=== PATIENT | male | born 1960 | race Caucasian/White ===

== ENCOUNTER → 2019-09-14 09:43 | Outpatient (BNVA) | payer OTHER, SELFPAY | PROVIDERS: PCP Nurse Practitioner Family; Visit Provider Nurse Practitioner Family | DX: E11.65 Type 2 diabetes mellitus with hyperglycemia (principal); Z12.5 Encounter for screening for malignant neoplasm of prostate; L03.115 Cellulitis of right lower limb; E55.9 Vitamin D deficiency, unspecified; S93.401A Sprain of unspecified ligament of right ankle, initial encounter; X58.XXXA Exposure to other specified factors, initial encounter | CPT/HCPCS: 36415; 73610; 80053; 80061; 81001; 82306; 83036; 84153; 84443; 85025 ==

== ENCOUNTER → 2019-10-08 10:35 | Outpatient (BNVA) | payer OTHER, SELFPAY | PROVIDERS: PCP Nurse Practitioner Family; Referring Provider Nurse Practitioner Family; Visit Provider Podiatrist Foot & Ankle Surgery | DX: M79.671 Pain in right foot (principal) | CPT/HCPCS: 73630 ==

== ENCOUNTER 2019-10-08 14:25 | Outpatient (CLI) | payer OTHER, SELFPAY | END 2019-10-08 14:26 | disposition home or self-care (01) | LOC: SPT 14:26 | PROVIDERS: PCP Nurse Practitioner Family; Visit Provider Podiatrist Foot & Ankle Surgery | DX: S92.251D Displaced fracture of navicular [scaphoid] of right foot, subsequent encounter for fracture with routine healing (principal); X58.XXXD Exposure to other specified factors, subsequent encounter | CPT/HCPCS: L4361 ==

== ENCOUNTER 2019-10-15 13:09 | Outpatient (CLI) | payer OTHER, SELFPAY ==
--- NOTE | 2019-10-15 15:30 | CT_ITS ---
WS: [id number] CT RIGHT FOOT, NONCONTRAST. 3-D reconstructions submitted. HISTORY: fracture Technique: All CT scans at [facility] use at least one of these dose optimization techniq ues: automated exposure control; mA and/or kV adjustment per patient size (includes targeted exams wh ere dose is matched to clinical indication); or iterative reconstruction. DLP: 927.74 mGycm COMPARISON: 10/08/2019 There is extensive bone and soft tissue injury to the midfoot. Seen on the recent radiograph is later al displacement of the proximal second metatarsal with relationship to the second cuneiform. There is approximately 6 mm lateral displacement of the second metatarsal. There is widening between the firs t and second proximal metatarsals. There is a tiny, 2 mm osseous density in the plantar soft tissues between the proximal first and second metatarsals which may be a small megan of bone. The proximal ar ticular surfaces of the first and second metatarsal are irregular suggesting that may been some impac tion injury or injury to the cortex of the bone on the trauma. Multiple small subcortical cystic changes are present along the anterior talar process with adjacent abnormal density within the navicular. Suspect these are both impaction fractures which have undergon e healing. There are multiple tiny osseous bone fragments in the soft tissues over the dorsal surface of the foot at the level of the navicular. There are small donor sites from the navicular and the ad jacent talar dome. Seen on the lateral projection is loss of the normal arch of the foot. There is a mild concave defect along the dorsal surface of the foot at the level of the tarsal due to loss of th e normal arch and disruption of the ligaments in the midfoot. There are additional cystic or erosive changes involving the anterior calcaneus and the adjacent cubo id and all 3 cuneiforms. Some of these changes may be posttraumatic and others degenerative. The william cular appears medially subluxed. There is a large amount of soft tissue edema and fluid surrounding the midfoot. Significant hammertoe deformities with splaying between the second and third phalanges. Displaced wit h respect to the first cuneiform. CT/CT foot RT wo con* [id number] IMPRESSION: 1. Significant Lisfranc injury. 2. Lateral displacement of the second metatarsal (6 mm) with relationship to t he second cuneiform consistent with disruption of the Lisfranc ligament. 3. Multiple bony fragments over the dorsal midfoot. Donor sites appear to be f rom the navicular, the anterior talar process and possibly the adjacent second cuneiform. 4. Subchondral cystic changes with sclerosis involving the anterior talus and navicular. Additional cortical irregularity involving the articular surfaces of the first and second metatarsals. Suspect these changes are all related to fra ctures with healing. 5. Suspect mild medial displacement of the navicular. 6. Loss of the normal plantar arch of the foot with concave deformity of the d orsal foot from the ligamentous injury.
== END 2019-10-15 13:10 | disposition home or self-care (01) ==
LOC: RADWPI 13:14
PROVIDERS: PCP Nurse Practitioner Family; Visit Provider Podiatrist Foot & Ankle Surgery
DX: S92.251A Displaced fracture of navicular [scaphoid] of right foot, initial encounter for closed fracture (principal); S92.121A Displaced fracture of body of right talus, initial encounter for closed fracture; X58.XXXA Exposure to other specified factors, initial encounter
CPT/HCPCS: 73700

== ENCOUNTER → 2019-12-21 00:01 | Outpatient (BNVA) | payer OTHER, SELFPAY | PROVIDERS: PCP Nurse Practitioner Family; Visit Provider Nurse Practitioner Family | DX: Z12.5 Encounter for screening for malignant neoplasm of prostate (principal); L03.115 Cellulitis of right lower limb; S93.409A Sprain of unspecified ligament of unspecified ankle, initial encounter; E55.9 Vitamin D deficiency, unspecified; E78.2 Mixed hyperlipidemia; E11.69 Type 2 diabetes mellitus with other specified complication | CPT/HCPCS: 80053; 81001; 83036; 85025 ==

== ENCOUNTER → 2020-03-24 08:40 | Outpatient (BNVA) | payer OTHER, SELFPAY | PROVIDERS: PCP Nurse Practitioner Family; Visit Provider Nurse Practitioner Family | DX: E55.9 Vitamin D deficiency, unspecified (principal); E11.69 Type 2 diabetes mellitus with other specified complication; E78.2 Mixed hyperlipidemia | CPT/HCPCS: 36415; 80053; 81003; 83036; 85025 ==

== ENCOUNTER → 2020-06-27 08:23 | Outpatient (BNVA) | payer OTHER, SELFPAY | PROVIDERS: PCP Nurse Practitioner Family; Visit Provider Nurse Practitioner Family | DX: E11.69 Type 2 diabetes mellitus with other specified complication (principal); E55.9 Vitamin D deficiency, unspecified; E78.2 Mixed hyperlipidemia | CPT/HCPCS: 80053; 80061; 81003; 82306; 83036; 83735; 84100; 85025 ==

== ENCOUNTER → 2020-09-26 10:18 | Outpatient (BNVA) | payer OTHER, SELFPAY | PROVIDERS: PCP Nurse Practitioner Family; Visit Provider Nurse Practitioner Family | DX: E11.69 Type 2 diabetes mellitus with other specified complication (principal); E78.2 Mixed hyperlipidemia | CPT/HCPCS: 80053; 80061; 83036 ==

== ENCOUNTER → 2021-08-21 09:47 | Outpatient (BNVA) | payer OTHER, SELFPAY | PROVIDERS: PCP Nurse Practitioner Family; Visit Provider Nurse Practitioner Family | DX: E11.69 Type 2 diabetes mellitus with other specified complication (principal); E55.9 Vitamin D deficiency, unspecified; E78.2 Mixed hyperlipidemia | CPT/HCPCS: 80053; 80061; 81003; 82306; 83036; 84443; 85025 ==

== ENCOUNTER → 2022-11-16 12:42 | Outpatient (BNVA) | payer OTHER, SELFPAY | PROVIDERS: PCP Nurse Practitioner Family; Visit Provider Nurse Practitioner | DX: E11.69 Type 2 diabetes mellitus with other specified complication (principal); E78.2 Mixed hyperlipidemia; E55.9 Vitamin D deficiency, unspecified | CPT/HCPCS: 80053; 80061; 82306; 83036; 84443; 85025 ==

== ENCOUNTER 2023-06-07 12:59 | Outpatient (CLI) | payer OTHER, SELFPAY ==
[2023-06-07 13:15] LABS: Basophils # 0.1 10^3/uL (0.0-0.1); Basophils % 0.7 %; Eosinophils # 0.2 10^3/uL (0.0-0.8); Eosinophils % 1.8 %; Hematocrit 44.2 % (37-53); Lymphocytes # 2.8 10^3/uL (0.8-4.8); Lymphocytes % 25.1 %; Mean Corpuscular HGB Conc 33.9 g/dL (30-55); Mean Corpuscular Hemoglobin 30.9 pg (27-33); Mean Corpuscular Volume 91.1 fl (82-101); Mean Platelet Volume 9.1 fL (7.4-10.4); Monocytes # 0.8 10^3/uL (0.2-0.9); Monocytes % 7.4 %; Neutrophils # 7.16 10^3/uL (1.8-7.7); Neutrophils % 64.2 %; Nucleated Red Blood Cells % 0 %; Platelet Count 380 10^3/cmm (157-399); Red Blood Count 4.85 10^6/uL (3.85-5.65); Red Cell Distribution Width 12.5 % (12.1-15.1); White Blood Count 11.16 10^3/uL (3.29-11.43)
--- NOTE | 2023-06-07 13:15 | XR_ITS ---
WS: [id number] Exam: XR foot LT min 3V* [id number] Date/Time of Exam: 06/07/2023 1:20 PM Reason For Exam: E11.621 - Type 2 diabetes mellitus with foot ulcer There is marked soft tissue swelling of the great toe with osseous destruction of the distal tuft of the distal phalanx. This is suspicious for acute osteomyelitis. There is also an acute fracture with minimal displacement involving the proximal phalanx of the fourth toe. Flexion deformity of the fifth toe. No other fractures. No other areas of bone destruction. Plantar heel spur. 1 mm x 3 mm metallic soft tissue foreign body noted in the region of the fourth toe. IMPRESSION: 1. Marked soft tissue edema of the great toe with osseous destruction of the distal tuft of the dista l phalanx suspicious for acute osteomyelitis. 2. Acute appearing fracture of the proximal phalanx of the fourth toe. 3. Small metallic foreign body seen in the proximal fourth toe.
[2023-06-07 13:30] LABS: Alanine Aminotransferase 12 U/L (0-41); Albumin Level 3.5 g/dL (3.5-5.2); Alkaline Phosphatase 94 U/L (40-130); Anion Gap 15.2 (5-19); Aspartate Amino Transferase 14 U/L (0-40); Blood Urea Nitrogen 14 mg/dL (8-23); Calcium 9.3 mg/dL (8.5-10.5); Carbon Dioxide 23 mmol/L (22-29); Chloride 94 mmol/L (98-107); Globulin 3.6 g/dL (1.3-4.6); Glomerular Filtration Rate 86.1 mL/min (90-130); Glucose 270 mg/dL (65-115); Osmolality Calculated 276 mOsm/kg (285-295); Potassium 4.2 mmol/L (3.5-5.1); Sodium 128 mmol/L (136-145); Total Bilirubin 0.6 mg/dL (0.15-1.2); Total Protein 7.1 g/dL (6.6-8.7)
== END 2023-06-07 13:00 | disposition home or self-care (01) ==
PROVIDERS: PCP Nurse Practitioner; Visit Provider Nurse Practitioner Family
DX: E11.621 Type 2 diabetes mellitus with foot ulcer (principal); L97.509 Non-pressure chronic ulcer of other part of unspecified foot with unspecified severity; S92.412A Displaced fracture of proximal phalanx of left great toe, initial encounter for closed fracture; X58.XXXA Exposure to other specified factors, initial encounter
CPT/HCPCS: 36415; 73630; 80053; 85025

== ENCOUNTER 2023-06-07 16:49 | Inpatient (IN) | payer OTHER, SELFPAY ==
[2023-06-07] VITALS (25 sets, daily range): BP systolic 112–166; BP diastolic 83–90; PULSE 75–101; RESP 16–32; TEMP 36.4–36.7; O2SAT 95–99; BMI 34.8
--- NOTE | 2023-06-07 17:02 | XRR_ITS ---
PROCEDURE INFORMATION: Exam: XR Left Foot Exam date and time: 06/07/2023 5:14 PM Age: 62 years old Clinical indication: Other: Lt foot ulcer; Additional info: Wound TECHNIQUE: Imaging protocol: Radiologic exam of the left foot. Views: 3 or more views. COMPARISON: No relevant prior studies available. FINDINGS: Bones/joints: There is a displaced medially angulated fracture of the diaphysis of the proximal phalanx of the 4th toe. There is mild irregularity of the tuft of the great toe with associated soft tissue swelling. Soft tissues: See Bones/joints finding. XR/XR foot LT min 3V* [id number] IMPRESSION: 1. Fracture of the proximal phalanx of the 4th toe. 2. There is mild irregularity of the tuft of the great toe with associated soft tissue swelling. Cannot exclude early osteomyelitis although petr osteolysis is not seen. Clinical correlation and follow-up are recommended.
--- NOTE | 2023-06-07 17:09 | ED_ITS ---
HPI - Extremity Problem General: Chief complaint: Extremity Injury, Lower Stated complaint: left foot toe injury/sent by wound care Time Seen by Provider: 06/07/23 17:01 Source: patient Mode of arrival: ambulatory Limitations: no limitations History of Present Illness: 62-year-old states he has had a wound to his left toe he states has been worsening since Tuesday and a temperature 100.7 he does see wound care wound care and sent him up here today likely needs an amputation of that toe. He denies any worsening proving factors. Associated symptoms: Reports fever(s); Deny chest pain or rash Review of Systems Const: Reports: fever(s); Denies: chills, body aches or change in appetite ENMT: Denies: throat pain or dental pain Card: Denies: chest pain Resp: Denies: dyspnea GI: Denies: abdominal pain, nausea, vomiting or diarrhea Musc: Reports: extremity swelling; Denies: neck pain or back pain Skin/Breast: Reports: erythema; Denies: rash PFSH ED PFSH: Medical History Diabetes mellitus Mixed hyperlipidemia Rhus dermatitis Vitamin D deficiency Surgical History History of ankle surgery Patient has history of right ankle injury at work in the [employer] and subsequent surgery, but does not know what was done Family History Other Diabetes Social History Smoking and tobacco/nicotine status: current every day tobacco/nicotine user smokeless tobacco Smokeless tobacco user: snuff Household members: significant other Housing: House Marital status: Current occupation: [employer] Current occupational exposures/hazards: Yes (lead and othe exposures) Physical Exam Const: COMMON NORMALS: no acute distress, patient oriented x3 and healthy appearing HENMT: COMMON NORMALS: normocephalic and atraumatic HEAD & SCALP: normocephalic and atraumatic Neck/C-Spine: COMMON NORMALS: full ROM and supple Chest: COMMONS NORMALS: normal inspection of the chest Resp: COMMON NORMALS: normal respiratory effort Cardio: COMMON NORMALS: regular rate, regular rhythm and No murmurs present (Cardio) RATE: regular rate RHYTHM: regular rhythm Extremity: COMMON NORMALS: full ROM OTHER: Chronic appearing wound to left toe with swelling erythema Neuro: COMMON NORMALS: patient oriented x3, moves all extremities and no focal motor deficits Psych: COMMON NORMALS: mental status grossly normal, Normal thought process present and cooperative THOUGHT PROCESS: Normal thought process present Skin: COMMON NORMALS: no rashes or lesions noted and no wounds GENERAL SKIN EXAM: no rashes or lesions noted Course Vital Signs: Vital signs: Vital Signs Temperature 97.5 F L 06/07/23 16:54 Pulse Rate 101 H 06/07/23 16:54 Respiratory Rate 16 06/07/23 16:54 Blood Pressure 166/88 06/07/23 16:54 Pulse Oximetry 99 06/07/23 16:54 Oxygen Delivery Me thod Room Air 06/07/23 16:54 MDM - Extremity (Nontraumatic) Medical Decision Making Patient presents here with chronic wound left toe with likely osteomyelitis patient is been seen by podiatry is likely going to amputate the toe tomorrow we will start on IV antibiotics I spoke to the hospitalist who will admit. Medical Records I reviewed the patient's medical records. Lab Data I reviewed the patient's lab results. 06/07/23 17:27 06/07/23 17:27 Radiology Impressions Foot X-Ray 06/07/23 17:02 IMPRESSION: 1. Fracture of the proximal phalanx of the 4th toe. 2. There is mild irregularity of the tuft of the great toe with associated soft tissue swelling. Cannot exclude early osteomyelitis although petr osteolysis is not seen. Clinical correlation and follow-up are recommended. Laboratory Results WBC 12.58 10^3/uL (3.29-11.43) H 06/07/23 17:27 RBC 5.06 10^6/uL (3.85-5.65) 06/07/23 17:27 Hgb 16.00 g/dL (11.27-16.99) 06/07/23 17:27 Hct 46.6 % (37-53) 06/07/23 17: MCV 92.1 fl (82-101) 06/07/23 17: MCH 31.6 pg (27-33) 06/07/23 17: MCHC 34.3 g/dL (30-55) 06/07/23 17: RDW 12.8 % (12.1-15.1) 06/07/23 17: Plt Count 384 10^3/cmm (157-399) 06/07/23 17: MPV 9.3 fL (7.4-10.4) 06/07/23 17: Neut % (Auto) 70.5 % 06/07/23 17: Lymph % (Auto) 19.6 % 06/07/23 17: [place] % (Auto) 7.2 % 06/07/23 17: Eos % (Auto) 1.5 % 06/07/23 17: Baso % (Auto) 0.6 % 06/07/23: Neut # (Auto) 8.88 10^3/uL (1.8-7.7) H 06/07/23: Lymph # (Auto) 2.5 10^3/uL (0.8-4.8) 06/07/23 17: [place] # (Auto) 0.9 10^3/uL (0.2-0.9) 06/07/23 17: Eos # (Auto) 0.2 10^3/uL (0.0-0.8) 06/07/23 17: Baso # (Auto) 0.1 10^3/uL (0.0-0.1) 06/07/23 17: Nucleated RBC % (auto) 0 % 06/07/23 17: Nucleated RBCs # 0.0 /100WBC 06/07/23 17: ESR 47 mm/hr (0-10) H 06/07/23 17:27 Sodium 132 mmol/L (136-145) L 06/07/23 17:27 Potassium 4.5 mmol/L (3.5-5.1) 06/07/23 17: Chloride 95 mmol/L (98-107) L 06/07/23 17: Carbon Dioxide 23 mmol/L (22-29) 06/07/23 17:27 Anion Gap 18.5 (5-19) 06/07/23 17:27 BUN 17 mg/dL (8-23) 06/07/23 17: Creatinine 1.1 mg/dL (0.7-1.2) 06/07/23 17:27 GFR Calculation 68.3 mL/min (90-130) L 06/07/23 17:27 Glucose 205 mg/dL (65-115) H 06/07/23 17:27 Calculated Osmolality 281 mOsm/kg (285-295) L 06/07/23 17:27 Calcium 9.4 mg/dL (8.5-10.5) 06/07/23 17:27 Total Bilirubin 0.5 mg/dL (0.15-1.2) 06/07/23 17:27 AST 22 U/L (0-40) 06/07/23 17:27 ALT 13 U/L (0-41) 06/07/23 17:27 Alkaline Phosphatase 109 U/L (40-130) 06/07/23 17:27 C-Reactive Protein 203.9 mg/L (0.0-4.9) H 06/07/23 17:27 Total Protein 8.1 g/dL (6.6-8.7) 06/07/23 17:27 Albumin 3.7 g/dL (3.5-5.2) 06/07/23 17:27 Globulin 4.4 g/dL (1.3-4.6) 06/07/23 17:27 All radiology interpretation(s) finalized by discharge Discharge Plan Discharge Patient Disposition: Admitted As Inpatient Admit Provider: Deandre Morales Clinical Impression: Osteomyelitis of left foot Condition: Stable Coding Level of Care Code ED Roads Supervisor for Matias Ye
[2023-06-07 17:42] LABS: Basophils # 0.1 10^3/uL (0.0-0.1); Basophils % 0.6 %; Eosinophils # 0.2 10^3/uL (0.0-0.8); Eosinophils % 1.5 %; Hematocrit 46.6 % (37-53); Lymphocytes # 2.5 10^3/uL (0.8-4.8); Lymphocytes % 19.6 %; Mean Corpuscular HGB Conc 34.3 g/dL (30-55); Mean Corpuscular Hemoglobin 31.6 pg (27-33); Mean Corpuscular Volume 92.1 fl (82-101); Mean Platelet Volume 9.3 fL (7.4-10.4); Monocytes # 0.9 10^3/uL (0.2-0.9); Monocytes % 7.2 %; Neutrophils # 8.88 10^3/uL (1.8-7.7); Neutrophils % 70.5 %; Nucleated Red Blood Cells % 0 %; Platelet Count 384 10^3/cmm (157-399); Red Blood Count 5.06 10^6/uL (3.85-5.65); Red Cell Distribution Width 12.8 % (12.1-15.1); White Blood Count 12.58 10^3/uL (3.29-11.43)
[2023-06-07 17:51] LABS: Erythrocyte Sedimentation Rate 47 mm/hr (0-10)
--- NOTE | 2023-06-07 17:59 | PM.CONSULT ---
Providers/Reason For Consult Consulting Physician/Specialty*: Jose Garnica D.P.M./podiatry Reason for Consult*: Left diabetic foot infection Primary Care Provider: JOE Merida History of Present Illness History of Present Illness Aime Leonard is a 62 year old male presents to the emergency department With complaints of a left great toe infection and left second toe infection has been progressing over the course of the past month. He believes it started with a ill fitting pair of boots. He saw his primary care yesterday and was placed on Bactrim, referred to the ED from wound care due to the extent of his wounds requiring hospitalization and surgical intervention. Patient endorses subjective fever. Patient's past medical history includes diabetes with peripheral neuropathy. No other complaints. Review of Systems General: Reports: 10 or more systems reviewed and unremarkable except in HPI and below Const: Denies: fever(s) or chills Eyes: Denies: change in vision Card: Denies: chest pain or palpitations Resp: Denies: dyspnea or productive cough GI: Denies: abdominal pain, nausea or vomiting : Denies: flank pain Musc: Reports: extremity swelling, joint stiffness and deformity Skin/Breast: Reports: erythema, sores, changes in skin color, dry skin, nail changes and change in hair Neuro: Reports: numbness in extremities, sensory changes and difficulty walking Psych: Denies: suicidal ideation Endo: Denies: change in body appearance Cooper/Lymph: Denies: tender lymph nodes Medications/Allergies Home Medications Medication Instructions Recorded Confirmed Last Taken Type blood-glucose meter #1 ea 09/17/19 06/06/23 Unknown Rx cholecalciferol (vitamin D3) 1,250 50,000 unit PO .weekly 90 days #12 08/28/21 06/06/23 Unknown Rx mcg (50,000 unit) capsule caps rosuvastatin 10 mg tablet (Crestor) 10 mg PO DAILY 90 days #90 tabs 08/28/21 06/06/23 Unknown Rx sitagliptin phosphate 50 mg tablet 100 mg PO DAILY 90 days #180 tabs 11/18/22 06/06/23 Unknown Rx (Januvia) metformin 500 mg tablet 1,000 mg PO BID 90 days #360 tabs 12/03/22 06/06/23 Unknown Rx mupirocin 2 % topical ointment 1 applic topical BID 5 days #22 03/09/23 06/06/23 Unknown Rx grams sulfamethoxazole 800 1 tab PO Q12H 14 days #28 tabs 06/06/23 06/06/23 Unknown Rx mg-trimethoprim 160 mg tablet (Bactrim DS) sodium hypochlorite 0.5 % solution 1 applic topical BID #473 mL 06/07/23 06/07/23 Unknown Rx (Dakin's Solution) Allergies Allergy/AdvReac Type Severity Reaction Status Date / Time No Known Allergies Allergy Verified 06/06/23 16:09 PFSH Acute PFSH: Medical History Diabetes mellitus Mixed hyperlipidemia Rhus dermatitis Vitamin D deficiency Surgical History History of ankle surgery Patient has history of right ankle injury at work in the [employer] and subsequent surgery, but does not know what was done Family History Other Diabetes Social History Smoking and tobacco/nicotine status: current every day tobacco/nicotine user smokeless tobacco Smokeless tobacco user: snuff Household members: significant other Housing: House Marital status: Current occupation: [employer] Current occupational exposures/hazards: Yes (lead and othe exposures) Vitals/I&O/Wt Last Vital Signs Temp 97.5 F L 06/07/23 16:54 Pulse 101 H 06/07/23 16:54 Resp 16 06/07/23 16:54 BP 166/88 06/07/23 16:54 Pulse Ox 99 06/07/23 16:54 O2 Del Method Room Air 06/07/23 16:54 Weight last 48 hrs Weight 264 lb Physical Exam Narrative: GENERAL: Patient is alert and oriented ?3 and in no acute distress. The following is a focused bilateral lower extremity exam. VASCULAR: Dorsalis pedis palpable bilaterally. Posterior tibial arteries palpable. Capillary refill time absent to the distal left great toe. Calf is supple and nontender proximally and distally. Decreased pedal hair growth bilaterally. NEUROLOGICAL: Protective sensation intact 0/10 sites, tested with [place] Larry monofilament to bilateral feet. DERMATOLOGICAL:Wound at the distal tuft of the left great toe probes directly to distal phalanx. Sinus tract within the left first webspace at the lateral aspect of the left great toe, left great toe is dusky, has gregory, dusky, ischemic appearance. Wound probes to bone at the dorsal aspect of the left second toe at the level of the proximal interphalangeal joint with serous drainage and macerated wound margin. Left second toe wound measures 5 mm x 4 mm x 2 mm. MUSCULOSKELETAL: Hammertoe contracture left third toe with triplane component. No crepitus with palpation of soft tissue of the left foot. No pain with posterior calf squeeze bilaterally. Data 06/07/23 17:27 06/07/23 17:27 Micro: Microbiology 06/07/23 17:30 Blood Culture - Preliminary Blood SPECIMEN COLLECTED 06/07/23 17: Blood Culture - Preliminary Blood SPECIMEN COLLECTED A&P Assessment and plan (1) Diabetic peripheral neuropathy associated with type 2 diabetes mellitus: (2) Cellulitis of left foot: (3) Non-pressure chronic ulcer of other part of left foot with necrosis of bone: Plan 62-year-old male presents with acute osteomyelitis left great toe and wound second toe. Patient examined evaluated, findings and treatment options discussed with patient at length. Discussed radiographic, laboratory clinical findings with the patient at length and recommended left great toe amputation and incision down to bone of the left second toe wound. Will likely require extended stay at the hospital with empiric IV antibiotics and delayed closure following amputation of left hallux given the amount of soft tissue involvement. Left great toe wound culture sent to microbiology for Gram stain, culture and sensitivity X-ray left foot taken at emergency department today shows erosive changes at the distal phalanx consistent with osteomyelitis, wound probes directly to this area of concern clinically. Dressing consisting of 4 x 4 gauze, Kerlix applied to the left foot N.p.o. at midnight Left hallux amputation and incision down to bone left second toe scheduled for tomorrow 06/08/2023 at noon. Coding Level of Care Code Acute Code for [facility] Fwd Diagnoses Diabetic peripheral neuropathy associated with type 2 diabetes mellitus E11.42 Cellulitis of left foot L03.116 Non-pressure chronic ulcer of other part of left foot with necrosis of bone L97.524
[2023-06-07 18:03] LABS: Alanine Aminotransferase 13 U/L (0-41); Albumin Level 3.7 g/dL (3.5-5.2); Alkaline Phosphatase 109 U/L (40-130); Anion Gap 18.5 (5-19); Aspartate Amino Transferase 22 U/L (0-40); Blood Urea Nitrogen 17 mg/dL (8-23); C Reactive Protein 203.9 mg/L (0.0-4.9); Calcium 9.4 mg/dL (8.5-10.5); Carbon Dioxide 23 mmol/L (22-29); Chloride 95 mmol/L (98-107); Globulin 4.4 g/dL (1.3-4.6); Glomerular Filtration Rate 68.3 mL/min (90-130); Glucose 205 mg/dL (65-115); Osmolality Calculated 281 mOsm/kg (285-295); Potassium 4.5 mmol/L (3.5-5.1); Sodium 132 mmol/L (136-145); Total Bilirubin 0.5 mg/dL (0.15-1.2); Total Protein 8.1 g/dL (6.6-8.7)
--- NOTE | 2023-06-07 18:12 | PM.HP ---
Providers/Chief Complaint Primary Care Provider: JOE Merida Chief Complaint: left foot toe injury/sent by wound care History of Present Illness Aime Leonard is a 62 year old male with a past medical history of diabetic neuropathy, history of type 2 diabetes mellitus, who presents to [facility] as he developed swelling, drainage, from his left foot, first and second digit, denies any fevers, no chills, no known trauma, no cat bites, no dog bites, he tells me that it suddenly erupted in the last 24 to 48 hours, he has had cellulitis in this area before, received antibiotics and that is improved, Review of Systems Const: Denies: fever(s) or chills Card: Denies: chest pain Resp: Denies: dyspnea GI: Denies: abdominal pain : Denies: flank pain or difficulty urinating Musc: Denies: extremity pain Skin/Breast: Reports: rash Neuro: Denies: headache(s) Medications/Allergies Home Medications Medication Instructions Recorded Confirmed Last Taken Type blood-glucose meter #1 ea 09/17/19 06/06/23 Unknown Rx cholecalciferol (vitamin D3) 1,250 50,000 unit PO .weekly 90 days #12 08/28/21 06/06/23 Unknown Rx mcg (50,000 unit) capsule caps rosuvastatin 10 mg tablet (Crestor) 10 mg PO DAILY 90 days #90 tabs 08/28/21 06/06/23 Unknown Rx sitagliptin phosphate 50 mg tablet 100 mg PO DAILY 90 days #180 tabs 11/18/22 06/06/23 Unknown Rx (Januvia) metformin 500 mg tablet 1,000 mg PO BID 90 days #360 tabs 12/03/22 06/06/23 Unknown Rx mupirocin 2 % topical ointment 1 applic topical BID 5 days #22 03/09/23 06/06/23 Unknown Rx grams sulfamethoxazole 800 1 tab PO Q12H 14 days #28 tabs 06/06/23 06/06/23 Unknown Rx mg-trimethoprim 160 mg tablet (Bactrim DS) sodium hypochlorite 0.5 % solution 1 applic topical BID #473 mL 06/07/23 06/07/23 Unknown Rx (Dakin's Solution) Allergies Allergy/AdvReac Type Severity Reaction Status Date / Time No Known Allergies Allergy Verified 06/06/23 16:09 PFSH Acute PFSH: Medical History Diabetes mellitus Mixed hyperlipidemia Rhus dermatitis Vitamin D deficiency Surgical History History of ankle surgery 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, but does not know what was done Family History Other Diabetes Social History Smoking and tobacco/nicotine status: current every day tobacco/nicotine user smokeless tobacco Smokeless tobacco user: snuff Household members: significant other Housing: House Marital status: Current occupation: [employer] Current occupational exposures/hazards: Yes (lead and othe exposures) Vitals/I&O/Wt Last Vital Signs Temp 97.5 F L 06/07/23 16:54 Pulse 101 H 06/07/23 16:54 Resp 16 06/07/23 16:54 BP 166/88 06/07/23 16:54 Pulse Ox 99 06/07/23 16:54 O2 Del Method Room Air 06/07/23 16:54 Weight last 48 hrs Weight 119.748 kg Physical Exam Const: COMMON NORMALS: no acute distress and patient oriented x3 HENMT: COMMON NORMALS: normocephalic HEAD & SCALP: normocephalic Eye: COMMON NORMALS: Equal, round and reactive pupils present and EOMs intact bilaterally Neck/C-Spine: COMMON NORMALS: no JVD Lymph: LYMPHATIC: no lymphadenopathy noted Resp: COMMON NORMALS: normal respiratory effort, No retractions, No use of accessory muscles and clear to auscultation bilaterally AUSCULTATION: clear to auscultation bilaterally Cardio: COMMON NORMALS: regular rate, regular rhythm, S1 normal heart sound present and S2 normal heart sound present RATE: regular rate RHYTHM: regular rhythm HEART SOUNDS: S1 normal heart sound present and S2 normal heart sound present GI: COMMON NORMALS: Normal to inspection, nondistended, normoactive bowel sounds present, Soft to palpation and non-tender Extremity: COMMON NORMALS: no calf tenderness and no pedal edema Neuro: COMMON NORMALS: patient oriented x3, CN's II-XII intact bilaterally, moves all extremities and no focal motor deficits Psych: COMMON NORMALS: mental status grossly normal Skin: NARRATIVE SKIN EXAM: Left lower extremity -First digit, erythema, swelling, purulent drainage, foul-smelling with erythema, extending beyond the PIP -Second digit, between DIP and PIP, area of erythema, swelling, drainage Data 06/07/23 17:27 06/07/23 17:27 Micro: Microbiology 06/07/23 17:30 Blood Culture - Preliminary Blood SPECIMEN COLLECTED 06/07/23 17:27 Blood Culture - Preliminary Blood SPECIMEN COLLECTED A&P Assessment and plan (1) Diabetic foot infection: (2) Cellulitis: (3) Osteomyelitis of left foot: Plan Left foot, diabetic ulcer, diabetic foot infection, cellulitis, first and second digit, with surrounding cellulitis, with concerns for osteomyelitis of distal phalanx first digit Plan -We will admit to general medical floors ? Follow blood cultures, follow wound cultures ? Continue vancomycin, Zosyn, ? Spoke to podiatry, plan on surgical debridement tomorrow, possible amputation, n.p.o. midnight ? Wound care ? N.p.o. midnight ? Type 2 diabetes mellitus, A1c, low-dose sliding scale ? Full code ? Lovenox for DVT prophylaxis ? Spoke to podiatry, spoke to ER provider, spoke to nursing staff, spoke to patient -Has fracture of proximal phalanx fourth toe -Also has a metallic foreign body, proximal fourth toe -Has diabetic neuropathy Attestations Medical Necessity Statement*: Patient requires hospitalization, inpatient, greater than 2 midnights, for diabetic foot ulcer, diabetic foot and foot infection, with cellulitis Diagnoses Diabetic foot infection E11.628; L08.9 Cellulitis L03.90 Osteomyelitis of left foot M86.9
[2023-06-07] MEDS: piperacillin-tazobactam 3.375 GM in sodium chloride 0.9% (plus) 50 ML IV (18:30)
[2023-06-07 18:47] LABS: NT Pro B Type Natriuretic Pept 266 pg/mL (0-125)
[2023-06-07] MEDS: enoxaparin 40 mg/0.4 mL Syringe SUBCUT (19:05)
[2023-06-07] MEDS: pantoprazole 40 mg SDV IVP (19:05)
[2023-06-07] MEDS: vancomycin 1,000 MG in sodium chloride 0.9% 250 ML 250 MG IV (19:06)
[2023-06-07 20:07] LABS: Chol HDL Ratio 12.79 mg/dL (1.0-5.00); Cholesterol 179 mg/dL (0-200); HDL Cholesterol 14 mg/dL (60-100); LDL Cholesterol Calculated 111 mg/dL (50-129); LDL HDL Ratio 7.93 RATIO (0.00-3.22); Thyroid Stimulating Hormone 2.07 uIU/mL (0.27-4.20); Triglycerides 271 mg/dL (0-150)
[2023-06-07 20:17] LABS: Estmated Average Glucose 206; Hemoglobin A1C 8.8 % (4.0-6.0)
[2023-06-07 20:49] LABS: Glucose Point of Care 223 mg/dL (70-110)
[2023-06-08] VITALS (43 sets, daily range): BP systolic 112–146; BP diastolic 70–95; PULSE 66–85; RESP 14–30; TEMP 36.1–36.8; O2SAT 93–100
[2023-06-08] MEDS: piperacillin-tazobactam 3.375 GM in sodium chloride 0.9% (plus) 50 ML IV ×3 (00:13→18:24)
[2023-06-08 04:05] LABS: Basophils # 0.1 10^3/uL (0.0-0.1); Basophils % 0.8 %; Eosinophils # 0.2 10^3/uL (0.0-0.8); Eosinophils % 2.7 %; Hematocrit 41.2 % (37-53); Lymphocytes # 2.3 10^3/uL (0.8-4.8); Lymphocytes % 25.2 %; Mean Corpuscular HGB Conc 33.7 g/dL (30-55); Mean Corpuscular Hemoglobin 31.4 pg (27-33); Mean Corpuscular Volume 93.2 fl (82-101); Mean Platelet Volume 9.2 fL (7.4-10.4); Monocytes # 0.9 10^3/uL (0.2-0.9); Monocytes % 9.4 %; Neutrophils # 5.46 10^3/uL (1.8-7.7); Neutrophils % 60.6 %; Nucleated Red Blood Cells % 0 %; Platelet Count 341 10^3/cmm (157-399); Red Blood Count 4.42 10^6/uL (3.85-5.65); Red Cell Distribution Width 12.7 % (12.1-15.1); White Blood Count 9.01 10^3/uL (3.29-11.43)
[2023-06-08 04:28] LABS: Anion Gap 13.4 (5-19); Blood Urea Nitrogen 14 mg/dL (8-23); Calcium 8.8 mg/dL (8.5-10.5); Carbon Dioxide 25 mmol/L (22-29); Chloride 101 mmol/L (98-107); Glomerular Filtration Rate 86.1 mL/min (90-130); Glucose 198 mg/dL (65-115); Osmolality Calculated 286 mOsm/kg (285-295); Potassium 4.4 mmol/L (3.5-5.1); Sodium 135 mmol/L (136-145)
[2023-06-08] MEDS: vancomycin 1,500 MG/300 ML PIGGYBACK 200 MG IV ×2 (05:07→18:28)
[2023-06-08 07:52] LABS: Glucose Point of Care 211 mg/dL (70-110)
[2023-06-08] MEDS: insulin lispro 100 unit/1 mL SUBCUT ×3 (08:42→18:24)
[2023-06-08 11:02] LABS: Glucose Point of Care 157 mg/dL (70-110)
[2023-06-08] MEDS: acetaminophen 325 mg Tablet 650 MG PO (11:12)
--- NOTE | 2023-06-08 12:41 | W.PM.OPSUD ---
Surgery/Procedure H&P Update DATE OF PROCEDURE: June 08, 2023 DATE H&P PERFORMED: 06/07/23 H&P UPDATE INFORMATION: I have reviewed H&P completed within last 30 days, I have examined patient prior to procedure, No changes to prior documentation and H&P is in [facility] EMR on date indicated PREOP DIAGNOSIS: Osteomyelitis left foot PLANNED PROCEDURE: Operation Date: 06/08/23 12:40 Proposed Procedures p Amputation Toe/s(Left) - Jose Garnica DPM
--- NOTE | 2023-06-08 12:42 | P.OP_ITS ---
Operative Report Date of procedure: June 08, 2023 Pre-op diagnosis: Osteomyelitis left great toe. Wound down to bone left second toe Post-op diagnosis: Same Procedure done: Left great toe amputation. CPT code 86116 Incision down to bone left second toe. CPT code 25815 Implants: None Specimens removed/disposition: Left great toe sent to microbiology for Gram stain, culture and sensitivity Surgeon: Jose Garnica DPM [employer] Guard: Tl Estimated blood loss: 10 10 IV fluids: 0 Urine output: 0 Complications: none Findings: Devitalized bone distal phalanx left great toe. Wound down to bone left second toe at the proximal interphalangeal joint Brief History: 62-year-old male presents with acute osteomyelitis left great toe and wound second toe. Patient examined evaluated, findings and treatment options discussed with patient at length.? Discussed radiographic, laboratory clinical findings with the patient at length and recommended left great toe amputation and incision down to bone of the left second toe wound.? Will likely require extended stay at the hospital with empiric IV antibiotics and delayed closure following amputation of left hallux given the amount of soft tissue? involvement. Procedure: Under mild sedation the patient was brought to the operating room and remained on the ICU bed in supine position. A timeout was performed. Anesthesia was then administered by the anesthesia service. Local anesthesia was injected by myself consisting of 30 cc of one-to-one mixture 1% lidocaine and 0.5% Marcaine plain in a left male block fashion and second ray block fashion. Tourniquet applied to the left high calf. Left lower extremity was scrubbed, prepped and draped utilizing normal aseptic technique. Tourniquet was utilized for total of 10 minutes. Attention was directed to the left great toe where a wound probe directly to distal phalanx which was soft, dusky gregory and had malodor with petr purulence, a fishmouth incision was planned out at the left first metatarsal phalangeal joint maintaining distal skin flaps and a disarticulation of left great toe was performed sharply, left great toe was sent to microbiology for Gram stain, culture and sensitivity. Debridement all devitalized soft tissue sharply with rongeur, pickups and 15 blade. Incision was irrigated with saline solution. Attention was directed to the left second toe where the proximal interphalangeal joint dorsally had a wound extending directly to the head of the proximal phalanx, this was incised with a bone cutter and debrided down to bone cortex of all devitalized bone and soft tissue followed by saline flush. Incisions were irrigated with copious amounts of Staticin solution and a saline wet-to-dry dressing was utilized at the left foot consisting of 4 x 4 gauze, Kerlix, ABD pad and Coban which was reinforced with additional 4 x 4's, Kerlix and Sanju wrap in PACU. Patient tolerated the procedure well and was transferred to the PACU with vital signs stable and vascular status intact. Following a period of postoperative monitoring he will be transferred back to the floor to continue IV antibiotics. We will monitor soft tissue closely and plan for primary delayed closure once soft tissue is cleared of infection.
[2023-06-08] MEDS: sodium chloride 0.9% 1,000 ML 30 ML IV (12:43)
[2023-06-08] MEDS: lidocaine 2% INJ 20 mL INJECTION (12:52)
[2023-06-08] MEDS: BUPivacaine 0.5% INJ 30 mL INJECTION (12:52)
--- NOTE | 2023-06-08 13:24 | ANES.PREANE2 ---
Pre-Anesthetic Assessment Height/Weight: Height 1.85 m Weight 119.748 kg Temp Pulse Resp BP Pulse Ox O2 Del Method 97.9 F 75 18 140/85 96 Room Air 06/08/23 12:23 06/08/23 12:23 06/08/23 12:23 06/08/23 12:23 06/08/23 12:23 06/08/23 12:23 Preop Diagnosis: Osteomyelitis left foot Operation Date: 06/08/23 12:40 Proposed Procedures p Amputation Toe/s(Left) - Jose Garnica DPM Familial anesthetic complications: none Was Beta Jonathon taken within 24 hours: N/A Was Clonidine taken within 24 hours: N/A Social No alcohol and No tobacco Exam alert, oriented x 3, clear to auscultation bilaterally and regular rate & rhythm Chin Airway Submandibular: within normal limits Cervical ROM: within normal limits Mallampati: Class II Dentition: chipped Chronic Renal Insufficiency Metabolic Diabetes Mellitus, Hyperlipidemia and Morbid Obesity Neuropsych Neuropathy Anesthetic Plan ASA status: 3 Anesthesia: MAC Medications/Allergies Home Medications Medication Instructions Recorded Confirmed Last Taken Type blood-glucose meter #1 ea 09/17/19 06/08/23 Unknown Rx metformin 500 mg tablet 1,000 mg PO BID 90 days #360 tabs 12/03/22 06/08/23 Unknown Rx sulfamethoxazole 800 1 tab PO Q12H 14 days #28 tabs 06/06/23 06/08/23 Unknown Rx mg-trimethoprim 160 mg tablet (Bactrim DS) sodium hypochlorite 0.5 % solution 1 applic topical BID #473 mL 06/07/23 06/08/23 Unknown Rx (Dakin's Solution) Allergies Allergy/AdvReac Type Severity Reaction Status Date / Time No Known Allergies Allergy Verified 06/06/23 16:09 Current Medications Generic Name Dose Route Start Last Admin Trade Name Freq PRN Reason Stop Dose Admin Acetaminophen 650 mg 06/07/23 18:50 06/08/23 11:12 Acetaminophen 325 Mg Tablet PO 650 mg Q6H PRN Administration Mild/Mod Pain Or Temp >/= 101 Bupivacaine HCl 30 ml 06/08/23 13:19 06/08/23 12:52 Bupivacaine 0.5% Inj 30 Ml INJECTION 06/08/23 13:20 15 ml ONCE ONE Administration Enoxaparin Sodium 40 mg 06/07/23 18:50 06/07/23 19:05 Enoxaparin 40 Mg/0.4 Ml Syringe SUBCUT 40 mg Q24H IRAJ Administration Piperacillin Sod/Tazobactam 50 mls @ 12.5 mls/hr 06/08/23 01:00 06/08/23 08:41 Sod 3.375 gm/ Sodium Chloride IV 12.5 mls/hr Q8H IRAJ Administration Protocol Vancomycin/PEG/NADA/Lysine/Water 1,500 mg in 300 mls @ 200 mls/hr 06/08/23 06:00 06/08/23 06:46 Vancocin IV Infused Q12H IRAJ Infusion Sodium Chloride 1,000 mls @ 30 mls/hr 06/08/23 12:30 06/08/23 12:43 Sodium Chloride 0.9% IV 06/09/23 12:29 30 mls/hr .Q24H IRAJ Administration Insulin Human Lispro 0 unit 06/08/23 08:00 06/08/23 11:12 Insulin Lispro 100 Unit/1 Ml SUBCUT 2 unit TIDWM IRAJ Administration Protocol Lidocaine HCl 20 ml 06/08/23 13:19 06/08/23 12:52 Lidocaine 2% Inj 20 Ml INJECTION 06/08/23 13:20 15 ml ONCE ONE Administration Pantoprazole Sodium 40 mg 06/07/23 18:50 06/07/23 19:05 Pantoprazole 40 Mg Sdv IVP 40 mg Q24H IRAJ Administration PFSH Anesthesia Medical History Diabetes mellitus Mixed hyperlipidemia Rhus dermatitis Vitamin D deficiency Surgical History History of ankle surgery Patient has history of right ankle injury at work in the [employer] and subsequent surgery, but does not know what was done Family History Other Diabetes Social History Smoking and tobacco/nicotine status: current every day tobacco/nicotine user smokeless tobacco Smokeless tobacco user: snuff Household members: significant other Housing: House Marital status: 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) Data Anesthesia 06/08/23 03:10 06/08/23 03:10 Short CBC 06/07/23 06/08/23 Range/Units 17:27 03:10 WBC 12.58 H 9.01 (3.29-11.43) 10^3/uL Hgb 16.00 13.90 (11.27-16.99) g/dL Hct 46.6 41.2 (37-53) % MCV 92.1 93.2 (82-101) fl Plt Count 384 341 (157-399) 10^3/cmm Neut % (Auto) 70.5 60.6 % Neut # (Auto) 8.88 H 5.46 (1.8-7.7) 10^3/uL BMP 06/07/23 06/08/23 17:27 03:10 Sodium 132 L 135 L Potassium 4.5 4.4 Chloride 95 L 101 Carbon Dioxide 23 25 BUN 17 14 Creatinine 1.1 0.9 Glucose 205 H 198 H Calcium 9.4 8.8 Cardiac Enzymes 06/07/23 Range/Units 17:27 NT-Pro-B Natriuret Pep 266 H (0-125) pg/mL Liver Function 06/07/23 Range/Units 17:27 Total Bilirubin 0.5 (0.15-1.2) mg/dL AST 22 (0-40) U/L ALT 13 (0-41) U/L Alkaline Phosphatase 109 (40-130) U/L Albumin 3.7 (3.5-5.2) g/dL Coags 06/07/23 06/07/23 17:27 17:27 ESR 47 H C-Reactive Protein 203.9 H Microbiology 06/07/23 17:30 Blood Culture - Preliminary Blood SPECIMEN COLLECTED 06/07/23 17:27 Blood Culture - Preliminary Blood SPECIMEN COLLECTED Cardiac Studies: No Data to Display
--- NOTE | 2023-06-08 13:25 | ANE.PACU2 ---
Inpatient post-anesthesia follow up: Airway intact: Yes Vital signs: Temperature 97.9 F Pulse Rate 75 Respiratory Rate 18 Blood Pressure 140/85 Pulse Oximetry 96 Oxygen Delivery Me thod Room Air Oxygen Flow Rate Fraction of Inspir ed Oxygen Hydration adequate: Yes Nausea and vomiting: No Pain level: 2 Mental status: Baseline
--- NOTE | 2023-06-08 14:54 | PM.PN ---
Subjective Subjective: Patient was seen this morning, he is a bit anxious about his surgery, denies any fevers, no chills Vitals/I&O/Wt Last Vital Signs Temp 97.0 F L 06/08/23 13:29 Pulse 72 06/08/23 13:29 Resp 20 H 06/08/23 13:29 BP 128/74 06/08/23 13:30 Pulse Ox 96 06/08/23 13:29 O2 Del Method Room Air 06/08/23 13:29 O2 Flow Rate 6 06/08/23 13:19 06/07/23 06/08/23 06/08/23 22:59 06:59 14:59 Intake Total 50 / 50 350 / 400 50 / 50 Output Total 975 / 975 1385 / 2360 Balance -925 / -925 -1035 / -1960 40 / 40 Weight last 48 hrs Weight 119.748 kg Physical Exam Const: COMMON NORMALS: no acute distress and patient oriented x3 Resp: COMMON NORMALS: normal respiratory effort, No retractions, No use of accessory muscles and clear to auscultation bilaterally AUSCULTATION: clear to auscultation bilaterally Cardio: COMMON NORMALS: regular rate, regular rhythm, S1 normal heart sound present and S2 normal heart sound present RATE: regular rate RHYTHM: regular rhythm HEART SOUNDS: S1 normal heart sound present and S2 normal heart sound present GI: COMMON NORMALS: Normal to inspection, nondistended, normoactive bowel sounds present and non-tender Extremity: COMMON NORMALS: no pedal edema NARRATIVE EXTREMITY EXAM: Left lower extremity wrapped Neuro: COMMON NORMALS: patient oriented x3 Psych: COMMON NORMALS: mental status grossly normal Data 06/08/23 03:10 06/08/23 03:10 Micro: Microbiology 06/07/23 17:30 Blood Culture - Preliminary Blood SPECIMEN COLLECTED 06/07/23 17:27 Blood Culture - Preliminary Blood SPECIMEN COLLECTED A&P Assessment and plan (1) Diabetic foot infection: (2) Cellulitis: (3) Osteomyelitis of left foot: Plan Left foot, diabetic ulcer, diabetic foot infection, cellulitis, first and second digit, with surrounding cellulitis, with concerns for osteomyelitis of distal phalanx first digit Plan -We will admit to general medical floors ? Follow blood cultures, follow wound cultures ? Continue vancomycin, Zosyn, ? Spoke to podiatry, plan on surgical debridement today, possible amputation, n.p.o. ? Wound care ? N.p.o. ? Type 2 diabetes mellitus, A1c, low-dose sliding scale ? Full code ? Lovenox for DVT prophylaxis ? Spoke to podiatry, spoke to ER provider, spoke to nursing staff, spoke to patient -Has fracture of proximal phalanx fourth toe -Has diabetic neuropathy Attestations Medical Necessity Statement*: Patient requires hospitalization for diabetic left foot, requiring surgical intervention IV antibiotics Diagnoses Diabetic foot infection E11.628; L08.9 Cellulitis L03.90 Osteomyelitis of left foot M86.9
[2023-06-08 16:57] LABS: Glucose Point of Care 218 mg/dL (70-110)
[2023-06-08] MEDS: enoxaparin 40 mg/0.4 mL Syringe SUBCUT (18:24)
[2023-06-08] MEDS: pantoprazole DR 40 mg Tablet PO (18:25)
[2023-06-08 21:24] LABS: Glucose Point of Care 199 mg/dL (70-110)
[2023-06-09] VITALS (8 sets, daily range): BP systolic 129–145; BP diastolic 79–82; PULSE 68–76; RESP 15–17; TEMP 36.4–36.9; O2SAT 96–98
[2023-06-09] MEDS: piperacillin-tazobactam 3.375 GM in sodium chloride 0.9% (plus) 50 ML IV ×3 (00:31→17:06)
[2023-06-09 05:51] LABS: Basophils # 0.1 10^3/uL (0.0-0.1); Eosinophils # 0.3 10^3/uL (0.0-0.8); Eosinophils % 2.7 %; Lymphocytes # 2.1 10^3/uL (0.8-4.8); Lymphocytes % 20.7 %; Mean Corpuscular HGB Conc 33.9 g/dL (30-55); Mean Corpuscular Hemoglobin 31.4 pg (27-33); Mean Corpuscular Volume 92.8 fl (82-101); Mean Platelet Volume 8.9 fL (7.4-10.4); Monocytes # 0.9 10^3/uL (0.2-0.9); Monocytes % 8.7 %; Neutrophils # 6.64 10^3/uL (1.8-7.7); Neutrophils % 65.5 %; Nucleated Red Blood Cells % 0 %; Platelet Count 433 10^3/cmm (157-399); Red Blood Count 4.74 10^6/uL (3.85-5.65); Red Cell Distribution Width 12.7 % (12.1-15.1); White Blood Count 10.12 10^3/uL (3.29-11.43)
[2023-06-09 06:09] LABS: Anion Gap 15.6 (5-19); Blood Urea Nitrogen 16 mg/dL (8-23); Calcium 9.1 mg/dL (8.5-10.5); Carbon Dioxide 22 mmol/L (22-29); Chloride 98 mmol/L (98-107); Glomerular Filtration Rate 86.1 mL/min (90-130); Glucose 188 mg/dL (65-115); Osmolality Calculated 278 mOsm/kg (285-295); Potassium 4.6 mmol/L (3.5-5.1); Sodium 131 mmol/L (136-145)
--- NOTE | 2023-06-09 06:16 | PM.PN ---
Subjective Subjective: Patient seen bedside this morning. He is 1 day status post left great toe amputation secondary to gangrene, status post incision down to bone left second toe. Doing well overnight. Denies any acute events. Tolerating regular diet. Denies any pain to the left foot at the operative site. No strikethrough bleeding of the dressing. Patient denies any subjective nausea, vomiting, fever, chills, shortness of breath or chest pain. Vitals/I&O/Wt Last Vital Signs Temp 98.1 F 06/09/23 03:36 Pulse 76 06/09/23 05:04 Resp 16 06/09/23 03:36 BP 137/81 06/09/23 03:36 Pulse Ox 96 06/09/23 03:36 O2 Del Method Room Air 06/09/23 03:36 O2 Flow Rate 6 06/08/23 13:19 06/08/23 06/08/23 06/09/23 14:59 22:59 06:59 Intake Total 50 / 50 1214.417 / 1264.417 99.583 / 1364.000 Output Total 600 / 610 900 / 1510 Balance 40 / 40 614.417 / 654.417 -800.417 / -146.000 Weight last 48 hrs Weight 264 lb Physical Exam Narrative: GENERAL: Patient is alert and oriented ?3 and in no acute distress. The following is a focused bilateral lower extremity exam. VASCULAR: Dorsalis pedis palpable bilaterally. Posterior tibial arteries palpable. Capillary refill time absent to the distal left great toe. Calf is supple and nontender proximally and distally. Decreased pedal hair growth bilaterally. NEUROLOGICAL: Protective sensation intact 0/10 sites, tested with [place] Larry monofilament to bilateral feet. DERMATOLOGICAL: No active bleeding at the left hallux amputation site. Improving erythema at the left foot subsiding distally, improved edema of the left foot. Dorsal skin flap at amputation site of the left great toe is viable, plantar skin flap distally is gregory and macerated, no purulent drainage. Left second toe wound improved without erythema or warmth or purulence. MUSCULOSKELETAL: Hammertoe contracture left third toe with triplane component. No crepitus with palpation of soft tissue of the left foot. No pain with posterior calf squeeze bilaterally. Data 06/09/23 05:18 10/26/23 05:18 Micro: Microbiology 06/07/23 17:30 Blood Culture - Preliminary Blood NEGATIVE TO DATE 06/07/23 17:27 Blood Culture - Preliminary Blood NEGATIVE TO DATE 06/08/23 13:10 Gram Stain - Final Bone 06/07/23 18:20 Gram Stain - Final Toe - #1 A&P Assessment and plan (1) Diabetic peripheral neuropathy associated with type 2 diabetes mellitus: (2) Cellulitis of left foot: (3) Non-pressure chronic ulcer of other part of left foot with necrosis of bone: (4) Amputation of left great toe: Plan Patient is 1 day status post left hallux amputation secondary to gangrene and debridement down to bone left second toe. Date of operation 06/08/2023 Patient is afebrile, no leukocytosis. Micro culture is pending, no plans for PICC line as level of amputation was curative of osteomyelitis, would recommend 2 weeks of oral antibiotics at discharge for soft tissue. Continuing IV antibiotics at this time Will monitor soft tissue at the amputation site for improvement, once soft tissue appears viable for closure will performed primary delayed closure in the operating room, potentially tomorrow 06/10/2023. Podiatry will continue to round twice daily, saline wet-to-dry dressing change performed this morning, will change again this p.m. Patient to be nonweightbearing to the left lower extremity, may heel touch only for transfers, to elevate his left foot while resting. Attestations Medical Necessity Statement*: Diabetic foot infection, left Coding Level of Care Code Acute Code for [facility] Fwd Diagnoses Diabetic peripheral neuropathy associated with type 2 diabetes mellitus E11.42 Cellulitis of left foot L03.116 Non-pressure chronic ulcer of other part of left foot with necrosis of bone L97.524 Amputation of left great toe S98.112A
[2023-06-09] MEDS: vancomycin 1,500 MG/300 ML PIGGYBACK 200 MG IV ×2 (06:19→19:57)
[2023-06-09 06:55] LABS: Glucose Point of Care 220 mg/dL (70-110)
[2023-06-09] MEDS: pantoprazole DR 40 mg Tablet PO (08:34)
[2023-06-09] MEDS: insulin lispro 100 unit/1 mL SUBCUT ×3 (08:36→18:02)
[2023-06-09 11:39] LABS: Glucose Point of Care 209 mg/dL (70-110)
--- NOTE | 2023-06-09 17:00 | P.PN_ITS ---
Subjective Subjective: Patient was seen this morning, denies any fevers, chills, no cough, Vitals/I&O/Wt Last Vital Signs Temp 97.6 F 06/09/23 15:23 Pulse 71 06/09/23 15:23 Resp 15 06/09/23 15:23 BP 129/80 06/09/23 15:23 Pulse Ox 96 06/09/23 15:23 O2 Del Method Room Air 06/09/23 15:23 O2 Flow Rate 6 06/08/23 13:19 06/09/23 06/09/23 06/09/23 06:59 14:59 22:59 Intake Total 99.583 / 1364.000 350 / 350 Output Total 900 / 1510 980 / 980 150 / 1130 Balance -800.417 / -146.000 -630 / -630 -150 / -780 Physical Exam Const: COMMON NORMALS: no acute distress and patient oriented x3 Resp: COMMON NORMALS: normal respiratory effort, No retractions, No use of accessory muscles and clear to auscultation bilaterally AUSCULTATION: clear to auscultation bilaterally Cardio: COMMON NORMALS: regular rate, regular rhythm, S1 normal heart sound present and S2 normal heart sound present RATE: regular rate RHYTHM: regular rhythm HEART SOUNDS: S1 normal heart sound present and S2 normal heart sound present GI: COMMON NORMALS: Normal to inspection, nondistended, normoactive bowel sounds present and non-tender Extremity: COMMON NORMALS: no pedal edema Neuro: COMMON NORMALS: patient oriented x3 Psych: COMMON NORMALS: mental status grossly normal Skin: NARRATIVE SKIN EXAM: Surgical site wrapped Data 06/09/23 05:18 06/09/23 05:18 Micro: Microbiology 06/07/23 17:30 Blood Culture - Preliminary Blood NEGATIVE TO DATE 06/07/23 17:27 Blood Culture - Preliminary Blood NEGATIVE TO DATE 06/08/23 13:10 Gram Stain - Final Bone 06/07/23 18:20 Gram Stain - Final Toe - #1 A&P Assessment and plan (1) Diabetic foot infection: (2) Cellulitis: (3) Osteomyelitis of left foot: Plan Left foot, diabetic ulcer, diabetic foot infection, cellulitis, first and second digit, with surrounding cellulitis, with concerns for osteomyelitis of distal phalanx first digit Plan -We will admit to general medical floors ? Follow blood cultures, follow wound cultures ? Continue vancomycin, Zosyn, ? Status post surgical intervention by Dr. Garnica, postop day 0 ? Wound care ? Diabetic diet ? Type 2 diabetes mellitus, A1c, low-dose sliding scale ? Full code ? Lovenox for DVT prophylaxis ? Spoke to podiatry, spoke to ER provider, spoke to nursing staff, spoke to patient -Has fracture of proximal phalanx fourth toe -Has diabetic neuropathy Attestations Medical Necessity Statement*: Patient requires hospitalization for left foot osteomyelitis, cellulitis, requiring surgical debridement, going back to the operating room later on during his hospitalization for delayed wound closure currently on antibiotic therapy, IV antibiotics, spoke to podiatry, spoke to patient, spoke to nursing staff Coding Level of Care Code 98660 Moderate MDM includes number and complexity of problems actively addressed during encounter, amount and/or complexity of data reviewed/ordered and described risk of complication, morbidity or mortality of management as doc umented Diagnoses Diabetic foot infection E11.628; L08.9 Cellulitis L03.90 Osteomyelitis of left foot M86.9
[2023-06-09 17:10] LABS: Glucose Point of Care 225 mg/dL (70-110)
[2023-06-09] MEDS: enoxaparin 40 mg/0.4 mL Syringe SUBCUT (18:54)
[2023-06-09 19:14] LABS: Vancomycin Trough 12.2 ug/mL (10-15)
[2023-06-09 20:46] LABS: Glucose Point of Care 275 mg/dL (70-110)
[2023-06-10] VITALS (8 sets, daily range): BP systolic 121–159; BP diastolic 74–86; PULSE 69–86; RESP 15–18; TEMP 36.4–36.9; O2SAT 95–96
[2023-06-10] MEDS: piperacillin-tazobactam 3.375 GM in sodium chloride 0.9% (plus) 50 ML IV ×3 (00:52→16:03)
[2023-06-10 05:28] LABS: Basophils # 0.1 10^3/uL (0.0-0.1); Basophils % 1.4 %; Eosinophils # 0.3 10^3/uL (0.0-0.8); Eosinophils % 3.6 %; Hematocrit 46.4 % (37-53); Lymphocytes # 2.2 10^3/uL (0.8-4.8); Lymphocytes % 23.3 %; Mean Corpuscular HGB Conc 32.8 g/dL (30-55); Mean Corpuscular Hemoglobin 30.8 pg (27-33); Mean Corpuscular Volume 93.9 fl (82-101); Mean Platelet Volume 8.7 fL (7.4-10.4); Monocytes # 0.8 10^3/uL (0.2-0.9); Monocytes % 8.7 %; Neutrophils % 61.1 %; Nucleated Red Blood Cells % 0 %; Platelet Count 444 10^3/cmm (157-399); Red Blood Count 4.94 10^6/uL (3.85-5.65); Red Cell Distribution Width 12.7 % (12.1-15.1); White Blood Count 9.33 10^3/uL (3.29-11.43)
[2023-06-10 05:55] LABS: Anion Gap 14.8 (5-19); Blood Urea Nitrogen 15 mg/dL (8-23); Calcium 9.3 mg/dL (8.5-10.5); Carbon Dioxide 22 mmol/L (22-29); Chloride 100 mmol/L (98-107); Glomerular Filtration Rate 76.2 mL/min (90-130); Glucose 211 mg/dL (65-115); Osmolality Calculated 281 mOsm/kg (285-295); Potassium 4.8 mmol/L (3.5-5.1); Sodium 132 mmol/L (136-145)
[2023-06-10] MEDS: vancomycin 1,500 MG/300 ML PIGGYBACK 200 MG IV ×2 (06:02→17:26)
[2023-06-10 06:46] LABS: Glucose Point of Care 210 mg/dL (70-110)
[2023-06-10] MEDS: insulin lispro 100 unit/1 mL SUBCUT ×3 (07:53→17:25)
--- NOTE | 2023-06-10 08:14 | PM.PN ---
Subjective Subjective: Patient seen bedside this morning. He is 2 days status post left great toe amputation secondary to gangrene, status post incision down to bone left second toe. Doing well overnight. Denies any acute events. Tolerating regular diet. Denies any pain to the left foot at the operative site. No strikethrough bleeding of the dressing. Patient denies any subjective nausea, vomiting, fever, chills, shortness of breath or chest pain. Vitals/I&O/Wt Last Vital Signs Temp 98.3 F 06/10/23 03:45 Pulse 86 06/10/23 06:00 Resp 15 06/10/23 03:45 BP 133/83 06/10/23 03:45 Pulse Ox 95 06/10/23 03:45 O2 Del Method Room Air 06/10/23 03:45 O2 Flow Rate 6 06/08/23 13:19 06/09/23 06/10/23 06/10/23 22:59 06:59 14:59 Intake Total 590 / 940 750 / 1690 1220 / 1220 Output Total 1150 / 2130 900 / 3030 200 / 200 Balance -560 / -1190 -150 / -1340 1020 / 1020 Physical Exam Narrative: GENERAL: Patient is alert and oriented ?3 and in no acute distress. The following is a focused bilateral lower extremity exam. VASCULAR: Dorsalis pedis palpable bilaterally. Posterior tibial arteries palpable. Capillary refill time absent to the distal left great toe. Calf is supple and nontender proximally and distally. Decreased pedal hair growth bilaterally. NEUROLOGICAL: Protective sensation intact 0/10 sites, tested with [place] Larry monofilament to bilateral feet. DERMATOLOGICAL: No active bleeding at the left hallux amputation site. Improving erythema at the left foot subsiding distally, improved edema of the left foot. Dorsal skin flap at amputation site of the left great toe is viable, plantar skin flap distally is gregory and macerated, no purulent drainage. Left second toe wound improved without erythema or warmth or purulence. MUSCULOSKELETAL: Hammertoe contracture left third toe with triplane component. No crepitus with palpation of soft tissue of the left foot. No pain with posterior calf squeeze bilaterally. Data 06/10/23 05:21 06/10/23 05:21 Micro: Microbiology 06/08/23 13:10 Gram Stain - Final Bone Tissue Culture - Preliminary 06/07/23 18:20 Gram Stain - Final Toe - #1 Wound Culture - Preliminary A&P Assessment and plan (1) Diabetic peripheral neuropathy associated with type 2 diabetes mellitus: (2) Cellulitis of left foot: (3) Non-pressure chronic ulcer of other part of left foot with necrosis of bone: (4) Amputation of left great toe: Plan Patient is 2 days status post left hallux amputation secondary to gangrene and debridement down to bone left second toe. Date of operation 06/08/2023 Patient is afebrile, no leukocytosis. Micro culture is pending, no plans for PICC line as level of amputation was curative of osteomyelitis, would recommend 2 weeks of oral antibiotics at discharge for soft tissue. Continuing IV antibiotics at this time Will monitor soft tissue at the amputation site for improvement, once soft tissue appears viable for closure will performed primary delayed closure in the operating room. Podiatry will continue to round twice daily, saline wet-to-dry dressing change performed this morning, will change again this p.m. Patient to be nonweightbearing to the left lower extremity, may heel touch only for transfers, to elevate his left foot while resting. Not ready for delayed closure at this time, will require continued IV antibiotics until soft tissue improves. I would anticipate delayed closure to be appropriate on Tuesday or Tuesday, leaning toward Tuesday this week 06/12/2023. Attestations Medical Necessity Statement*: Diabetic foot infection Coding Level of Care Code Acute Code for [facility] Diagnoses Diabetic peripheral neuropathy associated with type 2 diabetes mellitus E11.42 Cellulitis of left foot L03.116 Non-pressure chronic ulcer of other part of left foot with necrosis of bone L97.524 Amputation of left great toe S98.112A
[2023-06-10] MEDS: pantoprazole DR 40 mg Tablet PO (09:52)
--- NOTE | 2023-06-10 11:17 | PM.PN ---
Subjective Subjective: Patient was seen this morning, denies any fevers, no chills, no cough Vitals/I&O/Wt Last Vital Signs Temp 98.3 F 06/10/23 03:45 Pulse 86 06/10/23 06:00 Resp 15 06/10/23 03:45 BP 133/83 06/10/23 03:45 Pulse Ox 95 06/10/23 03:45 O2 Del Method Room Air 06/10/23 03:45 O2 Flow Rate 6 06/08/23 13:19 06/09/23 06/10/23 06/10/23 22:59 06:59 14:59 Intake Total 590 / 940 750 / 1690 1220 / 1220 Output Total 1150 / 2130 900 / 3030 675 / 675 Balance -560 / -1190 -150 / -1340 545 / 545 Physical Exam Const: COMMON NORMALS: no acute distress and patient oriented x3 Resp: COMMON NORMALS: normal respiratory effort, No retractions, No use of accessory muscles and clear to auscultation bilaterally AUSCULTATION: clear to auscultation bilaterally Cardio: COMMON NORMALS: regular rate, regular rhythm, S1 normal heart sound present and S2 normal heart sound present RATE: regular rate RHYTHM: regular rhythm HEART SOUNDS: S1 normal heart sound present and S2 normal heart sound present GI: COMMON NORMALS: Normal to inspection, nondistended, normoactive bowel sounds present and non-tender Extremity: COMMON NORMALS: no pedal edema NARRATIVE EXTREMITY EXAM: Surgical site wrapped Neuro: COMMON NORMALS: patient oriented x3 Psych: COMMON NORMALS: mental status grossly normal Data 06/10/23 05:21 06/10/23 05:21 Micro: Microbiology 06/08/23 13:10 Gram Stain - Final Bone Tissue Culture - Preliminary 06/07/23 18:20 Gram Stain - Final Toe - #1 Wound Culture - Preliminary A&P Assessment and plan (1) Diabetic foot infection: (2) Cellulitis: (3) Osteomyelitis of left foot: Plan Left foot, diabetic ulcer, diabetic foot infection, cellulitis, first and second digit, with surrounding cellulitis, with concerns for osteomyelitis of distal phalanx first digit Plan -We will admit to general medical floors ? Follow blood cultures, follow wound cultures ? Continue vancomycin, Zosyn, ? Status post surgical intervention by Dr. Garnica, postop day 1, delayed wound closure possible tuesday ? Wound care ? Diabetic diet ? Type 2 diabetes mellitus, A1c, low-dose sliding scale ? Full code ? Lovenox for DVT prophylaxis ? Spoke to podiatry, spoke to ER provider, spoke to nursing staff, spoke to patient -Has fracture of proximal phalanx fourth toe -Has diabetic neuropathy Attestations Medical Necessity Statement*: patient requires hospitalization for cellultiis, osteomyelitis, diabetic foot infection, s/p surgery, now with delayed wound closure, on iv abx Diagnoses Diabetic foot infection E11.628; L08.9 Cellulitis L03.90 Osteomyelitis of left foot M86.9
[2023-06-10 11:40] LABS: Glucose Point of Care 230 mg/dL (70-110)
[2023-06-10 16:59] LABS: Glucose Point of Care 215 mg/dL (70-110)
[2023-06-10] MEDS: enoxaparin 40 mg/0.4 mL Syringe SUBCUT (18:22)
[2023-06-10 20:53] LABS: Glucose Point of Care 271 mg/dL (70-110)
[2023-06-11] VITALS (9 sets, daily range): BP systolic 133–153; BP diastolic 71–82; PULSE 63–82; RESP 16–18; TEMP 36.2–36.6; O2SAT 92–98
[2023-06-11] MEDS: piperacillin-tazobactam 3.375 GM in sodium chloride 0.9% (plus) 50 ML IV ×3 (01:47→21:03)
[2023-06-11] MEDS: vancomycin 1,500 MG/300 ML PIGGYBACK 200 MG IV ×2 (05:58→17:36)
[2023-06-11 06:03] LABS: Basophils # 0.1 10^3/uL (0.0-0.1); Basophils % 1.3 %; Eosinophils # 0.4 10^3/uL (0.0-0.8); Eosinophils % 3.9 %; Hematocrit 47.8 % (37-53); Lymphocytes # 2.5 10^3/uL (0.8-4.8); Lymphocytes % 24.3 %; Mean Corpuscular HGB Conc 33.5 g/dL (30-55); Mean Corpuscular Hemoglobin 31.4 pg (27-33); Mean Corpuscular Volume 93.7 fl (82-101); Mean Platelet Volume 8.6 fL (7.4-10.4); Monocytes # 0.8 10^3/uL (0.2-0.9); Monocytes % 7.4 %; Neutrophils # 6.18 10^3/uL (1.8-7.7); Nucleated Red Blood Cells % 0 %; Platelet Count 492 10^3/cmm (157-399); Red Cell Distribution Width 12.6 % (12.1-15.1); White Blood Count 10.12 10^3/uL (3.29-11.43)
[2023-06-11 06:52] LABS: Alanine Aminotransferase 15 U/L (0-41); Albumin Level 3.4 g/dL (3.5-5.2); Alkaline Phosphatase 90 U/L (40-130); Anion Gap 14.5 (5-19); Aspartate Amino Transferase 13 U/L (0-40); Blood Urea Nitrogen 16 mg/dL (8-23); Calcium 9.5 mg/dL (8.5-10.5); Carbon Dioxide 23 mmol/L (22-29); Chloride 100 mmol/L (98-107); Globulin 4.5 g/dL (1.3-4.6); Glomerular Filtration Rate 86.1 mL/min (90-130); Glucose 199 mg/dL (65-115); Magnesium 2.1 mg/dL (1.7-2.3); Osmolality Calculated 283 mOsm/kg (285-295); Phosphorus 3.2 mg/dL (2.5-4.5); Potassium 4.5 mmol/L (3.5-5.1); Sodium 133 mmol/L (136-145); Total Bilirubin 0.5 mg/dL (0.15-1.2); Total Protein 7.9 g/dL (6.6-8.7)
[2023-06-11 07:06] LABS: Glucose Point of Care 295 mg/dL (70-110)
[2023-06-11] MEDS: insulin lispro 100 unit/1 mL SUBCUT ×3 (10:01→17:37)
[2023-06-11] MEDS: pantoprazole DR 40 mg Tablet PO (10:02)
--- NOTE | 2023-06-11 10:34 | P.PN_ITS ---
Subjective Subjective: Patient seen bedside this morning. He is 3 days status post left great toe amputation secondary to gangrene, status post incision down to bone left second toe. Doing well overnight. Denies any acute events. Tolerating regular diet. Denies any pain to the left foot at the operative site. No strikethrough bleeding of the dressing. Patient denies any subjective nausea, vomiting, fever, chills, shortness of breath or chest pain. Vitals/I&O/Wt Last Vital Signs Temp 97.5 F L 06/11/23 08:00 Pulse 71 06/11/23 08:00 Resp 16 06/11/23 08:00 BP 151/76 06/11/23 08:00 Pulse Ox 98 06/11/23 08:00 O2 Del Method Room Air 06/11/23 04:11 O2 Flow Rate 6 06/08/23 13:19 06/10/23 06/11/23 06/11/23 22:59 06:59 14:59 Intake Total 590.000 / 2460.000 50 / 2510.000 480 / 480 Output Total 1275 / 2275 750 / 3025 Balance -685.000 / 185.000 -700 / -515.000 480 / 480 Physical Exam Narrative: GENERAL: Patient is alert and oriented ?3 and in no acute distress. The following is a focused bilateral lower extremity exam. VASCULAR: Dorsalis pedis palpable bilaterally. Posterior tibial arteries palpable. Capillary refill time absent to the distal left great toe. Calf is supple and nontender proximally and distally. Decreased pedal hair growth bilaterally. NEUROLOGICAL: Protective sensation intact 0/10 sites, tested with [place] Larry monofilament to bilateral feet. DERMATOLOGICAL: No active bleeding at the left hallux amputation site. Impro ving erythema at the left foot subsiding distally, improved edema of the left foot. Dorsal skin flap at amputation site of the left great toe is viable, plantar skin flap distally is improving, no purulent drainage. Left second toe wound improved without erythema or warmth or purulence. MUSCULOSKELETAL: Hammertoe contracture left third toe with triplane component. No crepitus with palpation of soft tissue of the left foot. No pain with posterior calf squeeze bilaterally. Data 06/11/23 05:50 06/11/23 05:50 Micro: Microbiology 06/08/23 13:10 Gram Stain - Final Bone Tissue Culture - Preliminary 06/07/23 18:20 Gram Stain - Final Toe - #1 Wound Culture - Preliminary A&P Assessment and plan (1) Diabetic peripheral neuropathy associated with type 2 diabetes mellitus: (2) Cellulitis of left foot: (3) Non-pressure chronic ulcer of other part of left foot with necrosis of bone: (4) Amputation of left great toe: Plan Patient is 3 days status post left hallux amputation secondary to gangrene and debridement down to bone left second toe. Date of operation 06/08/2023 Patient is afebrile, no leukocytosis. Micro culture Stenotrophomonas maltophilia, gram-negative rods and staph. Continuing IV antibiotics at this time Saline wet-to-dry dressing changes this a.m. Improving soft tissue, will require further surgical debridement and delayed closure. N.p.o. at midnight Scheduled further surgical debridement with delayed closure left foot tomorrow morning 06/12/2023 8:00 AM. Attestations Medical Necessity Statement*: Diabetic foot infection Coding Level of Care Code Acute Code for [facility] Diagnoses Diabetic peripheral neuropathy associated with type 2 diabetes mellitus E11.42 Cellulitis of left foot L03.116 Non-pressure chronic ulcer of other part of left foot with necrosis of bone L97.524 Amputation of left great toe S98.112A
[2023-06-11 11:44] LABS: Glucose Point of Care 255 mg/dL (70-110)
--- NOTE | 2023-06-11 17:00 | PM.PN ---
Subjective Subjective: Patient was seen this morning, he is doing well, no fevers, no chills, no cough, Vitals/I&O/Wt Last Vital Signs Temp 97.8 F 06/11/23 16:00 Pulse 68 06/11/23 16:00 Resp 16 06/11/23 16:00 BP 153/82 06/11/23 16:00 Pulse Ox 96 06/11/23 16:00 O2 Del Method Room Air 06/11/23 04:11 O2 Flow Rate 6 06/08/23 13:19 06/11/23 06/11/23 06/11/23 06:59 14:59 22:59 Intake Total 50 / 2510.000 1310 / 1310 Output Total 750 / 3025 Balance -700 / -895.177 8051 / 1310 Physical Exam Const: COMMON NORMALS: no acute distress and patient oriented x3 Resp: COMMON NORMALS: normal respiratory effort, No retractions, No use of accessory muscles and clear to auscultation bilaterally AUSCULTATION: clear to auscultation bilaterally Cardio: COMMON NORMALS: regular rate, regular rhythm, S1 normal heart sound present and S2 normal heart sound present RATE: regular rate RHYTHM: regular rhythm HEART SOUNDS: S1 normal heart sound present and S2 normal heart sound present GI: COMMON NORMALS: Normal to inspection, nondistended, normoactive bowel sounds present and non-tender Extremity: COMMON NORMALS: no pedal edema NARRATIVE EXTREMITY EXAM: Surgical site wrapped Neuro: COMMON NORMALS: patient oriented x3 Psych: COMMON NORMALS: mental status grossly normal Data 06/11/23 05:50 06/11/23 05:50 Micro: Microbiology 06/08/23 13:10 Gram Stain - Final Bone Tissue Culture - Preliminary Coag negative Staphylococcus Coag negative Staphylococcus#2 Gram Negative Rods 06/07/23 18:20 Gram Stain - Final Toe - #1 Wound Culture - Final A&P Assessment and plan (1) Diabetic foot infection: (2) Cellulitis: (3) Osteomyelitis of left foot: Plan Left foot, diabetic ulcer, diabetic foot infection, cellulitis, first and second digit, with surrounding cellulitis, with concerns for osteomyelitis of distal phalanx first digit Plan -We will admit to general medical floors ? Follow blood cultures, follow wound cultures ? Continue vancomycin, Zosyn, ? Status post surgical intervention by Dr. Garnica, postop day 2, delayed wound closure possible tuesday ? Wound care ? Diabetic diet ? Type 2 diabetes mellitus, A1c, low-dose sliding scale ? Full code ? Lovenox for DVT prophylaxis ? Spoke to podiatry, spoke to ER provider, spoke to nursing staff, spoke to patient -Has fracture of proximal phalanx fourth toe -Has diabetic neuropathy Plan for today continue IV antibiotics, wound care, blood sugar monitoring, n.p.o. midnight Attestations Medical Necessity Statement*: Patient requires hospitalization for left foot diabetic ulcer, osteomyelitis, status post surgical invention, going in for delayed wound closure tomorrow Diagnoses Diabetic foot infection E11.628; L08.9 Cellulitis L03.90 Osteomyelitis of left foot M86.9
[2023-06-11 17:16] LABS: Glucose Point of Care 248 mg/dL (70-110)
[2023-06-11] MEDS: enoxaparin 40 mg/0.4 mL Syringe SUBCUT (18:02)
[2023-06-11 21:20] LABS: Glucose Point of Care 294 mg/dL (70-110)
[2023-06-12] VITALS (17 sets, daily range): BP systolic 108–163; BP diastolic 72–90; PULSE 62–85; RESP 16–22; TEMP 36.4–37; O2SAT 93–98
[2023-06-12 04:24] LABS: Basophils # 0.1 10^3/uL (0.0-0.1); Basophils % 1.1 %; Eosinophils # 0.4 10^3/uL (0.0-0.8); Eosinophils % 4.4 %; Hematocrit 44.7 % (37-53); Lymphocytes # 2.4 10^3/uL (0.8-4.8); Lymphocytes % 24.9 %; Mean Corpuscular HGB Conc 33.6 g/dL (30-55); Mean Corpuscular Hemoglobin 31.6 pg (27-33); Mean Corpuscular Volume 94.1 fl (82-101); Mean Platelet Volume 8.7 fL (7.4-10.4); Monocytes # 0.8 10^3/uL (0.2-0.9); Monocytes % 7.7 %; Neutrophils % 60.2 %; Nucleated Red Blood Cells % 0 %; Platelet Count 466 10^3/cmm (157-399); Red Blood Count 4.75 10^6/uL (3.85-5.65); Red Cell Distribution Width 12.5 % (12.1-15.1)
[2023-06-12 04:52] LABS: Alanine Aminotransferase 15 U/L (0-41); Albumin Level 3.4 g/dL (3.5-5.2); Alkaline Phosphatase 78 U/L (40-130); Anion Gap 12.3 (5-19); Aspartate Amino Transferase 12 U/L (0-40); Blood Urea Nitrogen 20 mg/dL (8-23); Calcium 9.3 mg/dL (8.5-10.5); Carbon Dioxide 23 mmol/L (22-29); Chloride 101 mmol/L (98-107); Globulin 3.9 g/dL (1.3-4.6); Glomerular Filtration Rate 98.6 mL/min (90-130); Glucose 214 mg/dL (65-115); Magnesium 2.3 mg/dL (1.7-2.3); Osmolality Calculated 283 mOsm/kg (285-295); Phosphorus 3.7 mg/dL (2.5-4.5); Potassium 4.3 mmol/L (3.5-5.1); Sodium 132 mmol/L (136-145); Total Bilirubin 0.3 mg/dL (0.15-1.2); Total Protein 7.3 g/dL (6.6-8.7)
[2023-06-12] MEDS: piperacillin-tazobactam 3.375 GM in sodium chloride 0.9% (plus) 50 ML IV ×2 (04:53→13:10)
[2023-06-12] MEDS: vancomycin 1,500 MG/300 ML PIGGYBACK 200 MG IV ×2 (04:58→14:42)
[2023-06-12 06:47] LABS: Glucose Point of Care 190 mg/dL (70-110)
--- NOTE | 2023-06-12 07:05 | W.PM.OPSUD ---
Surgery/Procedure H&P Update DATE OF PROCEDURE: June 12, 2023 DATE H&P PERFORMED: 06/07/23 H&P UPDATE INFORMATION: I have reviewed H&P completed within last 30 days, I have examined patient prior to procedure, No changes to prior documentation and H&P is in [facility] EMR on date indicated PREOP DIAGNOSIS: Osteomyelitis left foot PLANNED PROCEDURE: Operation Date: 06/08/23 12:40 Proposed Procedures p Amputation Toe/s(Left) - Jose Garnica DPM Operation Date: 06/12/23 08:10 Proposed Procedures p Delayed Wound Closure of left foot(Left) - Jose Garnica DPM
--- NOTE | 2023-06-12 07:06 | P.OP_ITS ---
Operative Report Date of procedure: June 12, 2023 Pre-op diagnosis: Status post left great toe amputation with wound exposed to bone. Post-op diagnosis: Same Post-op findings: wound with devitalized soft tissue, wound is exposed to bone. Procedure done: Delayed closure left foot. CPT code 61034 Implants: 4-0 Vicryl, 3-0 nylon Specimens removed/disposition: None Pathology: None Surgeon: Jose Garnica DPM Bail Bonding Agent: Rayo Russo Ashley Estimated blood loss: 5 13 IV fluids: 0 Urine output: 0 Complications: 0 Findings: None Brief History: Patient underwent left hallux amputation secondary to gangrenous diabetic foot infection on 06/08/2023. Wound was left open due to poor soft tissue quality required further surgical debridement. Over the course of his hospitalization receiving IV antibiotics and twice daily wet-to-dry dressing changes soft tissue infection is improved. Residual vitalized tissue necessitates further surgical debridement and attempted at delayed closure. Procedure: Under mild sedation the patient was brought to the operating room and remained on the gurney in supine position. A timeout was performed. Anesthesia was then administered by the anesthesia service. Local anesthesia was injected by myself consisting of 30 cc of one-to-one mixture 1% lidocaine and 0.5% Marcaine plain in a Viveros block fashion to the left foot. Well-padded pneumatic tourniquet was applied to the left high calf. The left lower extremity was scrubbed, prepped and draped utilizing normal aseptic technique. Attention was directed to the left foot where a dorsal and plantar flap was appreciated at the amputation site of the left great toe, first metatarsal head was visualized and inspected and noted to have viable appearance with appropriate density in color. Devitalized soft tissue including epidermis, dermis, subcutaneous tissue, muscle, tendon and deep fascia were debrided sharply with pickups and a 15 blade and the skin margins of the dorsal and plantar flap were sharply incised to viable level of bleeding. The incision was irrigated with copious amounts of sterile skin solution. The surgical wound after debridement measured 7 cm x 2 cm x 1 cm. Further irrigation was performed with sterile skin solution followed by closure in a layered fashion. The deep fascia and subcutaneous tissues were closed with 4-0 Vicryl. Skin was able to be reapproximated with no skin tension and margins well coapted with 3-0 nylon. The incision was dressed with Adaptic, sterile 4 x 4, Kerlix and Sanju wrap. Tourniquet was deflated and a prompt hyperemic response was noted to the remaining digits of the left foot toes 2 through 5. Patient tolerated the procedure and anesthesia well and was transferred to the PACU with vital signs stable and vascular status intact. Following a period of postoperative monitoring he will be transferred back to the floor. Cultures taken in the emergency department on 06/07/2023 significant for stenotrophomonas and gram- negative rods, surgical culture taken 06/08/2023 significant for coag negative Staphylococcus and gram-negative rods. Standpoint no further surgical intervention anticipated during this hospitalization. Patient ready for discharge planning from podiatry standpoint. Recommending oral antibiotics for 2 weeks. Will discuss antibiotic selection with hospitalist. We will follow-up in podiatry clinic next week.
[2023-06-12] MEDS: sodium chloride 0.9% 1,000 ML 30 ML IV (07:30)
--- NOTE | 2023-06-12 07:45 | P.ANESASSM_ITS ---
Pre-Anesthetic Assessment Height/Weight: Height 1.85 m Weight 119.748 kg Temp Pulse Resp BP Pulse Ox O2 Del Method O2 Flow Rate 98.6 F 72 16 132/72 96 Room Air 6 06/12/23 07:08 06/12/23 07:08 06/12/23 07:08 06/12/23 07:08 06/12/23 07:08 06/12/23 07:08 06/08/23 13:19 Preop Diagnosis: Osteomyelitis left foot Operation Date: 06/08/23 12:40 Proposed Procedures p Amputation Toe/s(Left) - Jose Garnica DPM Operation Date: 06/12/23 08:10 Proposed Procedures p Delayed Wound Closure of left foot(Left) - Jose Garnica DPM Was Beta Jonathon taken within 24 hours: N/A Was Clonidine taken within 24 hours: N/A Last intake: Intake Last Liquid Date 06/11/23 Last Liquid Time 21:00 Last Solid Date 06/11/23 Last Solid Time 17:00 Social Tobacco (chews tobacco ) and No alcohol Exam alert, oriented x 3, clear to auscultation bilaterally and regular rate & rhythm Airway Submandibular: within normal limits Cervical ROM: within normal limits Mallampati: Class II Dentition: other (Profound terminal dental disease ) Pulmonary None reported CV/HEM None reported Metabolic Diabetes Mellitus Anesthetic Plan ASA status: 3E Anesthesia: MAC Medications/Allergies Home Medications Medication Instructions Recorded Confirmed Last Taken Type blood-glucose meter #1 ea 09/17/19 06/08/23 Unknown Rx metformin 500 mg tablet 1,000 mg PO BID 90 days #360 tabs 12/03/22 06/08/23 Unknown Rx sulfamethoxazole 800 1 tab PO Q12H 14 days #28 tabs 06/06/23 06/08/23 Unknown Rx mg-trimethoprim 160 mg tablet (Bactrim DS) sodium hypochlorite 0.5 % solution 1 applic topical BID #473 mL 06/07/23 06/08/23 Unknown Rx (Dakin's Solution) Allergies Allergy/AdvReac Type Severity Reaction Status Date / Time No Known Allergies Allergy Verified 06/06/23 16:09 Current Medications Generic Name Dose Route Start Last Admin Trade Name Freq PRN Reason Stop Dose Admin Acetaminophen 650 mg 06/07/23 18:50 06/08/23 11:12 Acetaminophen 325 Mg Tablet PO 650 mg Q6H PRN Administration Mild/Mod Pain Or Temp >/= 101 Enoxaparin Sodium 40 mg 06/07/23 18:50 06/11/23 18:02 Enoxaparin 40 Mg/0.4 Ml Syringe SUBCUT 40 mg Q24H IRAJ Administration Piperacillin Sod/Tazobactam 50 mls @ 12.5 mls/hr 06/08/23 01:00 06/12/23 04:53 Sod 3.375 gm/ Sodium Chloride IV 12.5 mls/hr Q8H IRAJ Administration Protocol Vancomycin/PEG/NADA/Lysine/Water 1,500 mg in 300 mls @ 200 mls/hr 06/08/23 06:00 06/12/23 04:58 Vancocin IV 200 mls/hr Q12H IRAJ Administration Insulin Human Lispro 0 unit 06/08/23 08:00 06/11/23 17:37 Insulin Lispro 100 Unit/1 Ml SUBCUT 6 unit TIDWM IRAJ Administration Protocol Pantoprazole Sodium 40 mg 06/08/23 18:00 06/11/23 10:[address] 40 Mg Tablet PO 40 mg DAILY IRAJ Administration REPLACED BY [facility] Anesthesia Medical History Diabetes mellitus Mixed hyperlipidemia Rhus dermatitis Vitamin D deficiency Surgical History History of ankle surgery Patient has history of right ankle injury at work in the [employer] and subsequent surgery, but does not know what was done Family History Other Diabetes Social History Smoking and tobacco/nicotine status: current every day tobacco/nicotine user smokeless tobacco Smokeless tobacco user: snuff Household members: significant other Housing: House Marital status: 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) Data Anesthesia 06/12/23 03:56 06/12/23 03:56 Short CBC 06/11/23 06/12/23 Range/Units 05:50 03:56 WBC 10.12 9.80 (3.29-11.43) 10^3/uL Hgb 16.00 15.00 (11.27-16.99) g/dL Hct 47.8 44.7 (37-53) % MCV 93.7 94.1 (82-101) fl Plt Count 492 H 466 H (157-399) 10^3/cmm Neut % (Auto) 61.0 60.2 % Neut # (Auto) 6.18 5.90 (1.8-7.7) 10^3/uL BMP 06/11/23 06/12/23 05:50 03:56 Sodium 133 L 132 L Potassium 4.5 4.3 Chloride 100 101 Carbon Dioxide 23 23 BUN 16 20 Creatinine 0.9 0.8 Glucose 199 H 214 H Calcium 9.5 9.3 Liver Function 06/11/23 06/12/23 Range/Units 05:50 03:56 Total Bilirubin 0.5 0.3 (0.15-1.2) mg/dL AST 13 12 (0-40) U/L ALT 15 15 (0-41) U/L Alkaline Phosphatase 90 78 (40-130) U/L Albumin 3.4 L 3.4 L (3.5-5.2) g/dL Microbiology 06/08/23 13:10 Gram Stain - Final Bone Tissue Culture - Preliminary Coag negative Staphylococcus Coag negative Staphylococcus#2 Gram Negative Rods 06/07/23 18:20 Gram Stain - Final Toe - #1 Wound Culture - Final Cardiac Studies: No Data to Display
[2023-06-12] MEDS: lidocaine 2% INJ 20 mL 15 ML INJECTION (08:10)
[2023-06-12] MEDS: BUPivacaine 0.5% INJ 30 mL INJECTION (08:10)
--- NOTE | 2023-06-12 09:27 | ANE.PACU2 ---
Inpatient post-anesthesia follow up: Vital signs: Temperature 98.2 F Pulse Rate 80 Respiratory Rate 17 Blood Pressure 112/76 Pulse Oximetry 95 Oxygen Delivery Me thod Room Air Oxygen Flow Rate 6 Fraction of Inspir ed Oxygen Hydration adequate: Yes Nausea and vomiting: No Pain level: 1 Mental status: Baseline
[2023-06-12] MEDS: pantoprazole DR 40 mg Tablet PO (12:00)
[2023-06-12 12:10] LABS: Glucose Point of Care 285 mg/dL (70-110)
[2023-06-12] MEDS: insulin lispro 100 unit/1 mL SUBCUT ×2 (13:09→18:25)
--- NOTE | 2023-06-12 16:43 | PM.PN ---
Subjective Subjective: Patient was seen this morning, status post surgical invention, he is doing better, continues to complain of weakness, no fevers, no chills, no cough Vitals/I&O/Wt Last Vital Signs Temp 97.7 F 06/12/23 14:00 Pulse 74 06/12/23 14:00 Resp 16 06/12/23 14:00 BP 138/73 06/12/23 14:00 Pulse Ox 98 06/12/23 14:00 O2 Del Method Room Air 06/12/23 14:00 O2 Flow Rate 6 06/12/23 08:35 06/12/23 06/12/23 06/12/23 06:59 14:59 22:59 Intake Total 50 / 2164 669.5 / 669.5 Output Total 1350 / 2360 900 / 900 Balance -1300 / -196 -230.5 / -230.5 Physical Exam Const: COMMON NORMALS: no acute distress and patient oriented x3 Resp: COMMON NORMALS: normal respiratory effort, No retractions, No use of accessory muscles and clear to auscultation bilaterally AUSCULTATION: clear to auscultation bilaterally Cardio: COMMON NORMALS: regular rate, regular rhythm, S1 normal heart sound present and S2 normal heart sound present RATE: regular rate RHYTHM: regular rhythm HEART SOUNDS: S1 normal heart sound present and S2 normal heart sound present GI: COMMON NORMALS: Normal to inspection, nondistended, normoactive bowel sounds present and Soft to palpation PALPATION: Yes Soft to palpation Extremity: COMMON NORMALS: no pedal edema NARRATIVE EXTREMITY EXAM: Left foot wrapped Neuro: COMMON NORMALS: patient oriented x3 Psych: COMMON NORMALS: mental status grossly normal Data 06/12/23 03:56 06/12/23 03:56 Micro: Microbiology 06/08/23 13:10 Gram Stain - Final Bone Tissue Culture - Final Staphylococcus epidermidis Staphylococcus hominis Acinetobacter baumannii/haemol 06/07/23 18:20 Gram Stain - Final Toe - #1 Wound Culture - Final A&P Assessment and plan (1) Diabetic foot infection: (2) Cellulitis: (3) Osteomyelitis of left foot: Plan Left foot, diabetic ulcer, diabetic foot infection, cellulitis, first and second digit, with surrounding cellulitis, with concerns for osteomyelitis of distal phalanx first digit Plan -We will admit to general medical floors ? Follow blood cultures, follow wound cultures ? De-escalate antibiotics based on sensitivities to ciprofloxacin, doxycycline ? Status post surgical intervention by Dr. Garnica, postop day 0, wound closure ? Wound care ? Diabetic diet ? Type 2 diabetes mellitus, A1c 8.8, low-dose sliding scale ? Full code ? Lovenox for DVT prophylaxis ? Spoke to podiatry, spoke to ER provider, spoke to nursing staff, spoke to patient -Has fracture of proximal phalanx fourth toe -Has diabetic neuropathy Plan for today status post surgical intervention, monitor blood sugars, PT OT, de-escalate off IV antibiotics Attestations Medical Necessity Statement*: Patient requires hospitalization for left foot diabetic ulcer, with cellulitis, status post surgery, Diagnoses Diabetic foot infection E11.628; L08.9 Cellulitis L03.90 Osteomyelitis of left foot M86.9
[2023-06-12 18:02] LABS: Glucose Point of Care 238 mg/dL (70-110)
[2023-06-12] MEDS: enoxaparin 40 mg/0.4 mL Syringe SUBCUT (18:25)
[2023-06-12] MEDS: doxycycline 100 mg Tablet PO (20:12)
[2023-06-12] MEDS: ciprofloxacin 500 mg Tablet PO (20:12)
[2023-06-12 21:07] LABS: Glucose Point of Care 193 mg/dL (70-110)
[2023-06-13 04:00] VITALS: BP 143/87; PULSE 76; RESP 18; TEMP 36.3; O2SAT 97
[2023-06-13 05:05] LABS: Basophils # 0.1 10^3/uL (0.0-0.1); Basophils % 0.9 %; Eosinophils # 0.4 10^3/uL (0.0-0.8); Eosinophils % 3.7 %; Hematocrit 45.2 % (37-53); Lymphocytes # 2.8 10^3/uL (0.8-4.8); Lymphocytes % 25.7 %; Mean Platelet Volume 8.9 fL (7.4-10.4); Monocytes # 0.8 10^3/uL (0.2-0.9); Monocytes % 7.6 %; Neutrophils # 6.48 10^3/uL (1.8-7.7); Neutrophils % 60.6 %; Nucleated Red Blood Cells % 0 %; Platelet Count 455 10^3/cmm (157-399); Red Blood Count 4.81 10^6/uL (3.85-5.65); Red Cell Distribution Width 12.5 % (12.1-15.1); White Blood Count 10.72 10^3/uL (3.29-11.43)
[2023-06-13 05:27] LABS: Alanine Aminotransferase 13 U/L (0-41); Albumin Level 3.2 g/dL (3.5-5.2); Alkaline Phosphatase 81 U/L (40-130); Anion Gap 14.4 (5-19); Aspartate Amino Transferase 9 U/L (0-40); Blood Urea Nitrogen 16 mg/dL (8-23); Calcium 9.2 mg/dL (8.5-10.5); Carbon Dioxide 22 mmol/L (22-29); Chloride 102 mmol/L (98-107); Globulin 4.1 g/dL (1.3-4.6); Glomerular Filtration Rate 86.1 mL/min (90-130); Glucose 178 mg/dL (65-115); Magnesium 2.1 mg/dL (1.7-2.3); Osmolality Calculated 284 mOsm/kg (285-295); Phosphorus 3.1 mg/dL (2.5-4.5); Potassium 4.4 mmol/L (3.5-5.1); Sodium 134 mmol/L (136-145); Total Bilirubin 0.4 mg/dL (0.15-1.2); Total Protein 7.3 g/dL (6.6-8.7)
[2023-06-13 05:47] VITALS: PULSE 72
[2023-06-13 06:45] LABS: Glucose Point of Care 207 mg/dL (70-110)
[2023-06-13 08:00] VITALS: BP 145/82; PULSE 70; RESP 15; TEMP 36.6; O2SAT 98
[2023-06-13] MEDS: doxycycline 100 mg Tablet PO (08:32)
[2023-06-13] MEDS: insulin lispro 100 unit/1 mL SUBCUT ×2 (08:32→12:25)
[2023-06-13] MEDS: pantoprazole DR 40 mg Tablet PO (08:32)
[2023-06-13] MEDS: ciprofloxacin 500 mg Tablet PO (08:32)
[2023-06-13 11:21] VITALS: BP 139/79; PULSE 77; RESP 15; TEMP 36.4; O2SAT 95
--- NOTE | 2023-06-13 11:22 | PM.PN ---
Subjective Subjective: Patient seen bedside this morning, 1 day status post delayed closure left foot. Denies any acute events overnight. Patient denies any subjective nausea, vomiting, fever, chills, shortness of breath or chest pain. Vitals/I&O/Wt Last Vital Signs Temp 97.6 F 06/13/23 11:21 Pulse 77 06/13/23 11:21 Resp 15 06/13/23 11:21 BP 139/79 06/13/23 11:21 Pulse Ox 95 06/13/23 11:21 O2 Del Method Room Air 06/13/23 11:21 O2 Flow Rate 6 06/12/23 08:35 06/12/23 06/13/23 06/13/23 22:59 06:59 14:59 Intake Total 1470 / 2139.5 360 / 360 Output Total 700 / 1600 1150 / 2750 Balance 770 / 539.5 -1150 / -610.5 360 / 360 Physical Exam Narrative: GENERAL: Patient is alert and oriented ?3 and in no acute distress. The following is a focused bilateral lower extremity exam. VASCULAR: Dorsalis pedis palpable bilaterally. Posterior tibial arteries palpable. Capillary refill time absent to the distal left great toe. Calf is supple and nontender proximally and distally. Decreased pedal hair growth bilaterally. NEUROLOGICAL: Protective sensation intact 0/10 sites, tested with [place] monofilament to bilateral feet. DERMATOLOGICAL: Stable appearing wound to the left second toe at the proximal interphalangeal joint measures 3 mm x 3 mm x 1 mm without erythema warmth or drainage, no deep structures exposed. Delayed closure site has sutures intact without active bleeding, no evelin-incisional erythema or warmth, no purulence. MUSCULOSKELETAL: Hammertoe contracture left third toe with triplane component. No crepitus with palpation of soft tissue of the left foot. No pain with posterior calf squeeze bilaterally. Status post left great toe amputation. Data 06/13/23 04:20 06/13/23 04:20 Micro: Microbiology 06/07/23 17:30 Blood Culture - Final Blood NO GROWTH AFTER 5 DAYS 06/07/23 17:27 Blood Culture - Final Blood NO GROWTH AFTER 5 DAYS 06/08/23 13:10 Gram Stain - Final Bone Tissue Culture - Final Staphylococcus epidermidis Staphylococcus hominis Acinetobacter baumannii/haemol A&P Assessment and plan (1) Diabetic peripheral neuropathy associated with type 2 diabetes mellitus: (2) Cellulitis of left foot: (3) Non-pressure chronic ulcer of other part of left foot with necrosis of bone: (4) Amputation of left great toe: Plan Patient is status post left hallux amputation secondary to gangrene and debridement down to bone left second toe. Date of operation 06/08/2023. Status post delayed closure left foot performed 06/12/2023. Patient is afebrile, no leukocytosis. Micro culture is significant for Stenotrophomonas maltophilia, actinobacter, staph hominis, Staph epidermidis. All sensitive to fluoroquinolones. New dry sterile dressing applied to left foot at today's visit. Stable postoperative changes appreciated, no dehiscence. Nonweightbearing left foot, may heel touch with cam boot for transfers. Weight left foot while resting Keep current dressing clean, dry and intact until his follow-up visit in podiatry clinic this 06/17/2023 at 10:45 AM. Attestations Medical Necessity Statement*: Diabetic foot infection Coding Level of Care Code Acute Code for [facility] Diagnoses Diabetic peripheral neuropathy associated with type 2 diabetes mellitus E11.42 Cellulitis of left foot L03.116 Non-pressure chronic ulcer of other part of left foot with necrosis of bone L97.524 Amputation of left great toe S98.112A
[2023-06-13 11:55] LABS: Glucose Point of Care 224 mg/dL (70-110)
--- NOTE | 2023-06-13 12:32 | PM.DCS ---
Discharge Providers Date of Admission: 06/07/23 18:50 Date of Discharge: June 13, 2023 Attending Provider at Admission: Deandre Morales MD Attending Provider at Discharge: Deandre Morales MD Primary Care Provider: JOE Merida Diagnoses at Discharge Discharge Diagnosis (1) Diabetic peripheral neuropathy associated with type 2 diabetes mellitus: Status: Acute (2) Cellulitis of left foot: Status: Acute (3) Non-pressure chronic ulcer of other part of left foot with necrosis of bone: Status: Acute (4) Amputation of left great toe: Status: Acute Reason for Visit Reason for Visit: left foot toe injury/sent by wound care Hospital Course Hospital Course Aime Leonard is a 62 year old male with a past medical history of diabetic neuropathy, history of type 2 diabetes mellitus, who presents to [facility] as he developed swelling, drainage, from his left foot, first and second digit, denies any fevers, no chills, no known trauma, no cat bites, no dog bites, he tells me that it suddenly erupted in the last 24 to 48 hours, he has had cellulitis in this area before, received antibiotics and that is improved, Patient was admitted to [facility] for cellulitis left foot, with osteomyelitis, diabetic ulcer, status post left hallux amputation secondary to gangrene and debridement down to the bone left second toe, with delayed closure left foot, received IV antibiotics, podiatry was consulted, overall clinically improved, discharged on Cipro and doxycycline for antibiotic coverage, follow-up with Dr. Garnica on Tuesday, continue dressing changes as prescribed, nonweightbearing left foot, for type 2 diabetes mellitus discharged on metformin, low-dose sliding scale, follow-up with primary care provider this week Physical Exam Const: COMMON NORMALS: no acute distress and patient oriented x3 Resp: COMMON NORMALS: normal respiratory effort, No retractions, No use of accessory muscles and clear to auscultation bilaterally AUSCULTATION: clear to auscultation bilaterally Cardio: COMMON NORMALS: regular rate, regular rhythm, S1 normal heart sound present and S2 normal heart sound present RATE: regular rate RHYTHM: regular rhythm HEART SOUNDS: S1 normal heart sound present and S2 normal heart sound present GI: COMMON NORMALS: Normal to inspection, nondistended, normoactive bowel sounds present and non-tender Extremity: COMMON NORMALS: no pedal edema Neuro: COMMON NORMALS: patient oriented x3 Psych: COMMON NORMALS: mental status grossly normal Skin: NARRATIVE SKIN EXAM: Lower extremity wrapped Discharge Data Studies Completed and Pending Completed Studies During Hospitalization Category Date Time Status XR foot LT min 3V* [id number] Stat Exams 06/07/23 17:02 Completed Pending at discharge Category Date Time Status Vancomycin Trough Timed Lab 06/13/23 13:00 Ordered Radiology Impressions Foot X-Ray 06/07/23 17:02 IMPRESSION: 1. Fracture of the proximal phalanx of the 4th toe. 2. There is mild irregularity of the tuft of the great toe with associated soft tissue swelling. Cannot exclude early osteomyelitis although petr osteolysis is not seen. Clinical correlation and follow-up are recommended. Laboratory Results WBC 10.72 10^3/uL (3.29-11.43) 06/13/23 04:20 RBC 4.81 10^6/uL (3.85-5.65) 06/13/23 04:20 Hgb 14.90 g/dL (11.27-16.99) 06/13/23 04:20 Hct 45.2 % (37-53) 06/13/23 04:20 MCV 94.0 fl (82-101) 06/13/23 04:20 MCH 31.0 pg (27-33) 06/13/23 04:20 MCHC 33.0 g/dL (30-55) 06/13/23 04:20 RDW 12.5 % (12.1-15.1) 06/13/23 04:20 Plt Count 455 10^3/cmm (157-399) H 06/13/23 04:20 MPV 8.9 fL (7.4-10.4) 06/13/23 04:20 Neut % (Auto) 60.6 % 06/13/23 04:20 Lymph % (Auto) 25.7 % 06/13/23 04:20 Barren % (Auto) 7.6 % 06/13/23 04:20 Eos % (Auto) 3.7 % 06/13/23 04:20 Baso % (Auto) 0.9 % 06/13/23 04:20 Neut # (Auto) 6.48 10^3/uL (1.8-7.7) 06/13/23 04:20 Lymph # (Auto) 2.8 10^3/uL (0.8-4.8) 06/13/23 04:20 Barren # (Auto) 0.8 10^3/uL (0.2-0.9) 06/13/23 04:20 Eos # (Auto) 0.4 10^3/uL (0.0-0.8) 06/13/23 04:20 Baso # (Auto) 0.1 10^3/uL (0.0-0.1) 06/13/23 04:20 Nucleated RBC % (auto) 0 % 06/13/23 04:20 Nucleated RBCs # 0.0 /100WBC 06/13/23 04:20 ESR 47 mm/hr (0-10) H 06/07/23 17:27 Sodium 134 mmol/L (136-145) L 06/13/23 04:20 Potassium 4.4 mmol/L (3.5-5.1) 06/13/23 04:20 Chloride 102 mmol/L (98-107) 06/13/23 04:20 Carbon Dioxide 22 mmol/L (22-29) 06/13/23 04:20 Anion Gap 14.4 (5-19) 06/13/23 04:20 BUN 16 mg/dL (8-23) 06/13/23 04:20 Creatinine 0.9 mg/dL (0.7-1.2) 06/13/23 04:20 GFR Calculation 86.1 mL/min (90-130) L 06/13/23 04:20 Glucose 178 mg/dL (65-115) H 06/13/23 04:20 POC Glucose 224 mg/dL (70-110) H 06/13/23 11:00 Estimat Average Glucose 206 06/07/23 17:27 Hemoglobin A1c 8.8 % (4.0-6.0) H 06/07/23 17:27 Calculated Osmolality 284 mOsm/kg (285-295) L 06/13/23 04:20 Calcium 9.2 mg/dL (8.5-10.5) 06/13/23 04:20 Phosphorus 3.1 mg/dL (2.5-4.5) 06/13/23 04:20 Magnesium 2.1 mg/dL (1.7-2.3) 06/13/23 04:20 Total Bilirubin 0.4 mg/dL (0.15-1.2) 06/13/23 04:20 AST 9 U/L (0-40) 06/13/23 04:20 ALT 13 U/L (0-41) 06/13/23 04:20 Alkaline Phosphatase 81 U/L (40-130) 06/13/23 04:20 C-Reactive Protein 203.9 mg/L (0.0-4.9) H 06/07/23 17:27 NT-Pro-B Natriuret Pep 266 pg/mL (0-125) H 06/07/23 17:27 Total Protein 7.3 g/dL (6.6-8.7) 06/13/23 04:20 Albumin 3.2 g/dL (3.5-5.2) L 06/13/23 04:20 Globulin 4.1 g/dL (1.3-4.6) 06/13/23 04:20 Triglycerides 271 mg/dL (0-150) H 06/07/23 17:27 Cholesterol 179 mg/dL (0-200) 06/07/23 17:27 LDL Cholesterol, Calc 111 mg/dL (50-129) 06/07/23 17:27 HDL Cholesterol 14 mg/dL (60-100) L 06/07/23 17:27 LDL/HDL Ratio 7.93 RATIO (0.00-3.22) H 06/07/23 17:27 Cholesterol/HDL Ratio 12.79 mg/dL (1.0-5.00) H 06/07/23 17:27 TSH 2.07 uIU/mL (0.27-4.20) 06/07/23 17:27 Vancomycin Trough 12.2 ug/mL (10-15) 06/09/23 17:15 Vitals Last Vital Signs Temp 97.6 F 06/13/23 11:21 Pulse 77 06/13/23 11:21 Resp 15 06/13/23 11:21 BP 139/79 06/13/23 11:21 Pulse Ox 95 06/13/23 11:21 O2 Del Method Room Air 06/13/23 11:21 O2 Flow Rate 6 06/12/23 08:35 Discharge Plan Discharge Patient Disposition: Home Condition: Stable Prescriptions: New ciprofloxacin HCl 500 mg Tablet 500 mg PO BID@0900,2100 7 Days Qty: 14 0RF hydrocodone-acetaminophen 5-325 mg tablet 1 tab PO Q6H PRN (Reason: pain) 5 Days Qty: 20 0RF doxycycline hyclate 100 mg tablet 100 mg PO BID 7 Days Qty: 14 0RF Novolog FlexPen U-100 Insulin 100 unit/mL (3 mL) insulin pen See Rx Instructions .ROUTE .COMPLEX MDD 20 Qty: 15 0RF Rx Instructions: Inject, subcut, 3 times daily, after meals, based on sliding scale provided Continued Dakin's Solution 0.5 % solution 1 applic topical BID Qty: 473 0RF Rx Instructions: Wet to dry to left great toe twice daily. metformin 500 mg tablet 1,000 mg PO BID 90 Days Qty: 360 3RF Discontinued sulfamethoxazole-trimethoprim [Bactrim DS] 800-160 mg tablet 1 tab PO Q12H 14 Days Qty: 28 0RF No Action (DME) blood-glucose meter Kit See Rx Instructions .ROUTE .MEDSUPPLY Qty: 1 5RF Rx Instructions: Daily Discharge Orders: Discharge Order (Routine); Ordered 06/13/23 Ordered By: Deandre Morales Other Ambulatory Orders: DME: Walker (Order) Location: None Selected Ordered By: Jose Garnica Referrals: Jose Garnica DPM [Physician] - 4-7 days ALLI Son FNP [Primary Care Provider] - 1-3 days Discharge Diet: Diabetic Discharge Activity: Resume usual activity Patient Instructions: Opioid Safety Activity Restrictions/Additional Instructions: Nonweightbearing left foot, may heel touch with cam boot for transfers. Weight left foot while resting -Please take antibiotics as prescribed -Wound care as prescribed -See primary care in 1 week -Please monitor your blood sugars closely -Monitor your blood sugars 3 times daily as after meals -Please record your blood sugars, and a blood sugar log -For your NovoLog -Please inject blood sugar after meals based on sliding scale provided -Do not inject insulin if you do not eat as hypoglycemia kills -This is a NovoLog sliding scale -Insulin sliding ?fingerstick? Insulin ?141-180?0 units/sq 181-220?2 units/sq ?221-260?4 units/sq ?261-300 6 units/sq ?301-350?8 units/sq ?351-400 10 units/sq ?401-450?12 units/sq >450? 14units/sq -If your blood sugar is greater than 500 go to the emergency room -If your blood sugar is less than 60 or at anytime you feel lightheaded or dizzy or diaphoretic or have chest palpitations check your blood sugar, and eat a hard candy or drink orange juice and go immediately to the emergency room -Remember hypoglycemia kills, so if his blood sugar is less than 60 we have to increase it by taking in a sugary meal such as a hard candy or orange juice and go to the emergency room -If you have any questions please call us where here to help Discharge Attestations Time Spent in Discharge Care*: greater than 30 min Quality Metrics Clinical Quality Measures [ No reported AMI, CVA or VTE this stay] Coding Level of Care Code 84542 Total time (in minutes) for Discharge: 45 Diagnoses Diabetic peripheral neuropathy associated with type 2 diabetes mellitus E11.42 Cellulitis of left foot L03.116 Non-pressure chronic ulcer of other part of left foot with necrosis of bone L97.524 Amputation of left great toe S98.112A
[2023-06-13 13:34] VITALS: BP 139/79; PULSE 77; RESP 15; TEMP 36.4; O2SAT 95
== END 2023-06-13 13:35 | disposition home or self-care (01) | DRG 617 ==
LOC: ER 17:11 → ICU 18:29 → MEDSURG 06-08 16:28
PROVIDERS: Podiatrist Foot & Ankle Surgery; Admitting Provider Family Medicine; Emergency Provider Emergency Medicine; PCP Nurse Practitioner Family; Visit Provider Family Medicine
PROC: 0Y6Q0Z3 Detachment at Left 1st Toe, Low, Open Approach (ICD-10-PCS; principal; 2023-06-08 12:20)
PROC: 0YQ Anatomical Regions, Lower Extremities, Repair (ICD-10-PCS; CPT 13160; principal; 2023-06-12 08:00)
DX: E11.69 Type 2 diabetes mellitus with other specified complication (principal); E11.52 Type 2 diabetes mellitus with diabetic peripheral angiopathy with gangrene; L03.116 Cellulitis of left lower limb; M86.172 Other acute osteomyelitis, left ankle and foot; I96 Gangrene, not elsewhere classified; Z79.84 Long term (current) use of oral hypoglycemic drugs; E11.628 Type 2 diabetes mellitus with other skin complications; E11.42 Type 2 diabetes mellitus with diabetic polyneuropathy; E11.621 Type 2 diabetes mellitus with foot ulcer; L97.524 Non-pressure chronic ulcer of other part of left foot with necrosis of bone; E78.2 Mixed hyperlipidemia; E55.9 Vitamin D deficiency, unspecified; F17.210 Nicotine dependence, cigarettes, uncomplicated; S92.912A Unspecified fracture of left toe(s), initial encounter for closed fracture; X58.XXXA Exposure to other specified factors, initial encounter; Y92.9 Unspecified place or not applicable
CPT/HCPCS: 36415; 36416; 73630; 80048; 80053; 80061; 80202; 82962; 83036; 83735; 83880; 84100; 84443; 85025; 85651; 86140; 87040; 87070; 87075; 87077; 87176; 87186; 87205; 96372; 96376; 97110; 97116; 97161; 97530; 99285; C9113; J1650; J1815; J2250; J2543; J2704; J3010; J3370; J3490; J7030; J7050; L4361

== ENCOUNTER → 2024-01-30 08:20 | Outpatient (BNVA) | payer OTHER, SELFPAY | PROVIDERS: PCP Nurse Practitioner Family; Visit Provider Nurse Practitioner Family | DX: E11.69 Type 2 diabetes mellitus with other specified complication (principal); E55.9 Vitamin D deficiency, unspecified; E78.2 Mixed hyperlipidemia | CPT/HCPCS: 80053; 80061; 81003; 82306; 83036; 84443; 85025; G0103 ==

== ENCOUNTER → 2024-04-11 10:18 | Outpatient (BNVA) | payer OTHER, SELFPAY | PROVIDERS: PCP Nurse Practitioner Family; Visit Provider Podiatrist Foot & Ankle Surgery | DX: E11.621 Type 2 diabetes mellitus with foot ulcer; L97.524 Non-pressure chronic ulcer of other part of left foot with necrosis of bone; E11.42 Type 2 diabetes mellitus with diabetic polyneuropathy; Z89.412 Acquired absence of left great toe; Z79.4 Long term (current) use of insulin; Z79.84 Long term (current) use of oral hypoglycemic drugs | CPT/HCPCS: 73630; 87070; 87075; 87186; 87205 ==

== ENCOUNTER → 2024-04-17 08:19 | Outpatient (CLI) | payer OTHER, SELFPAY | LOC: SPT 08:20 | PROVIDERS: PCP Nurse Practitioner Family; Visit Provider Podiatrist Foot & Ankle Surgery | DX: Z46.89 Encounter for fitting and adjustment of other specified devices (principal); E11.42 Type 2 diabetes mellitus with diabetic polyneuropathy; L97.524 Non-pressure chronic ulcer of other part of left foot with necrosis of bone | CPT/HCPCS: 97760; L4361 ==

== ENCOUNTER → 2024-05-04 08:28 | Outpatient (BNVA) | payer OTHER, SELFPAY | PROVIDERS: PCP Nurse Practitioner Family; Visit Provider Nurse Practitioner Family | DX: E11.69 Type 2 diabetes mellitus with other specified complication (principal) | CPT/HCPCS: 80053; 81003; 83036; 85025 ==

== ENCOUNTER 2024-05-18 11:15 | Day surgery (SDC) | payer OTHER, SELFPAY ==
[2024-05-18] VITALS (7 sets, daily range): BP systolic 133–145; BP diastolic 81–94; PULSE 66–83; RESP 14–20; TEMP 36.2–36.6; O2SAT 96–99; BMI 32.3
--- NOTE | 2024-05-18 11:41 | ANES.PREANE2 ---
Pre-Anesthetic Assessment Height/Weight: Height 6 ft 1 in Preop Diagnosis: Osteomyelitis left foot Operation Date: 05/18/24 13:10 Proposed Procedures p Incision of bone cortex left foot(Left) - Jose Garnica DPM Was Beta Jonathon taken within 24 hours: N/A Was Clonidine taken within 24 hours: N/A Social No alcohol and No tobacco Exam alert, oriented x 3, clear to auscultation bilaterally and regular rate & rhythm Airway Submandibular: within normal limits Cervical ROM: within normal limits Mallampati: Class II Dentition: other (Very poor dentition) Anesthetic Plan ASA status: 3 Anesthesia: MAC Other: No prior issues with anesthesia in the past NPO since yesterday Patient has type 2 diabetes on insulin, metformin and sitagliptin. Patient states he has not taken the sitagliptin yet. Blood sugar today 123 Denies pulmonary issues Labs 05/04/2024 reviewed Plan for MAC anesthesia with local via surgeon Medications/Allergies Home Medications Medication Instructions Recorded Confirmed Last Taken Type blood-glucose meter #1 ea 09/17/19 05/14/24 Unknown Rx sodium hypochlorite 0.5 % solution 1 applic topical BID #473 mL 06/07/23 05/18/24 Unknown Rx (Dakin's Solution) insulin aspart U-100 100 unit/mL See Rx Instructions .Route 06/13/23 05/18/24 Unknown Rx (3 mL) subcutaneous pen (Novolog .COMPLEX #15 mL FlexPen U-100 Insulin aspart) custom molded accomadative #1 ea 07/11/23 05/14/24 Unknown Rx orthotics with a toe filler to the left metformin 500 mg tablet 1,000 mg (2 x 500 mg) PO BID 90 01/26/24 05/17/24 05/17/24 Rx days #360 tabs sildenafil 100 mg tablet (Viagra) 100 mg PO DAILY PRN sexual 02/10/24 05/18/24 Unknown Rx activity 30 days #14 tabs CAM walker #1 ea 04/17/24 05/14/24 Unknown Rx doxycycline hyclate 100 mg capsule 100 mg PO BID 2 weeks #28 caps 05/02/24 05/17/24 05/17/24 Rx sitagliptin phosphate 25 mg tablet 25 mg PO DAILY 30 days #30 tabs 05/14/24 05/18/24 Unknown Rx (Januvia) Allergies Allergy/AdvReac Type Severity Reaction Status Date / Time No Known Allergies Allergy Verified 05/18/24 11:40 [facility] Anesthesia Medical History Erectile dysfunction Rhus dermatitis Vitamin D deficiency Mixed hyperlipidemia Diabetes mellitus Surgical History History of ankle surgery 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
[2024-05-18] MEDS: sodium chloride 0.9% 1,000 ML 30 ML IV (11:47)
[2024-05-18 12:08] LABS: Glucose Point of Care 123 mg/dL (70-110)
--- NOTE | 2024-05-18 12:19 | W.PM.OPSUD ---
Surgery/Procedure H&P Update DATE OF PROCEDURE: May 18, 2024 DATE H&P PERFORMED: 05/01/24 H&P UPDATE INFORMATION: I have reviewed H&P completed within last 30 days, I have examined patient prior to procedure, No changes to prior documentation and H&P is in [facility] on date indicated PREOP DIAGNOSIS: Osteomyelitis left foot PLANNED PROCEDURE: Operation Date: 05/18/24 13:10 Proposed Procedures p Incision of bone cortex left foot(Left) - Jose Garnica DPM
[2024-05-18] MEDS: ceFAZolin 2,000 mg SDV 2000 MG IVP (12:36)
[2024-05-18] MEDS: lidocaine 2% INJ 20 mL INJECTION (12:53)
[2024-05-18] MEDS: BUPivacaine 0.5% INJ 30 mL INJECTION (12:53)
--- NOTE | 2024-05-18 13:10 | W.PM.BPON ---
Date of Procedure: 10/28/23 Surgeon: Jose Garnica DPM Bulldozer Press Operator(s): ROSALIO Procedure(s) performed:incision bone cortex left foot second metatarsal Findings of the procedure(s): Devitalized second metatarsal left foot Estimated blood loss: 10 mL Specimen(s) removed: Second metatarsal bone sent to microbiology for culture Post-operative diagnosis: Osteomyelitis left foot second metatarsal
--- NOTE | 2024-05-18 13:11 | PM.OP ---
Operative Report Date of procedure: May 18, 2024 Pre-op diagnosis: Diabetic peripheral neuropathy associated with type 2 diabetes mellitus E11.42 Amputation of left great toe S98.112A Wound of left foot S91.302A Non-pressure chronic ulcer of other part of left foot with necrosis of bone L97.524 Post-op diagnosis: Diabetic peripheral neuropathy associated with type 2 diabetes mellitus E11.42 Amputation of left great toe S98.112A Wound of left foot S91.302A Non-pressure chronic ulcer of other part of left foot with necrosis of bone L97.524 Procedure done: Incision of bone cortex left foot. CPT code 80531 Implants: 4-0 nylon Specimens removed/disposition: Second metatarsal bone left foot sent to microbiology for culture Surgeon: Jose Garnica DPM Stem Cleaning Machine Feeder: ROSALIO Estimated blood loss: 10 mm 15 minutes IV fluids: See intraoperative documentation Urine output: None Complications: no complications Brief History: Discussed surgical versus conservative management of his wound he is trending towards wanting to have surgery done believes that it is not going to heal and that he is susceptible for deeper and more worsening infection, would like to have this done May 18. Given that his wound probes directly to bone recommending 6 weeks of antibiotics minimum and will trend labs. Prescribe doxycycline 100 mg twice daily for 14 days with a plan of 6-week course minimum. continue with iodisorb dressing changes Continue offloading with cam boot and utilizing a walker and overall decreasing activity. Keeping dry when bathing. I reviewed at length with the patient, the risks, potential complications, benefits, alternatives, expectations, and typical outcomes associated with the surgery. The risks and potential complications were explained in detail, including but not limited to infection, wound dehiscence or soft tissue complications, bleeding and hematoma, chronic edema, neuritis or nerve damage producing numbness or chronic pain, CRPS, failure to relieve pain or worsening pain, thick / painful / unsightly scar, limited motion / stiffness, malposition, delayed union, malunion, or nonunion, fracture, reaction to implants, anesthetic complications, venous thromboembolism, and deformity recurrence. I discussed the notion of no regrets with the patient as it pertains to complications and outcomes. The patient seemed to understand the nature of the proposed care and required convalescence. They asked appropriate questions, answered to their satisfaction. They are aware no guarantees can be made as to a satisfactory outcome and they understand there may be other possible unforeseen complications or outcomes not listed here that will be treated accordingly if they arise. There were no written or implied guarantees given to the patient. They gave informed consent to proceed. Procedure: Under mild sedation the patient was brought to the operating room and remained on the gurney in supine position. A timeout was performed. Anesthesia was then administered by the anesthesia service. Local anesthesia injected by myself consisting of 20 cc of 1% lidocaine plain in the left second ray block fashion. Well-padded pneumatic tourniquet applied to the left ankle. The left lower extremity was scrubbed, prepped and draped utilizing normal aseptic technique. Tourniquet was then inflated to 250 mmHg. Attention was directed to the left plantar forefoot where a full-thickness wound probing directly to the second metatarsal head was appreciated. Attention was then directed to the dorsum of the left foot where second metatarsal head was palpated, directly over the second metatarsal head the incision was performed through skin and a linear longitudinal fashion with a #15 blade with dissection carried down bluntly and sharply through subcutaneous tissue to the layer of the periosteum of the second metatarsal head dorsally which was then incised and devitalized bone was sharply excisionally debrided, this bone was sent to microbiology for Gram stain, culture and sensitivity to help guide antibiotic therapy moving forward. No further devitalized soft tissue or bone was appreciated and the incision was irrigated with copious amounts of sterile saline solution and closed with 4-0 nylon. The left dorsal incision and the left plantar wound were dressed with Adaptic, sterile 4 x 4, Kerlix and Sanju wrap followed by application of a cam boot. Tourniquet was deflated and a prompt hyperemic response was noted to the remaining digits of the left foot. Patient tolerated the procedure and anesthesia well and was transferred to the PACU with vital signs stable and vascular status intact. Following a period of postoperative monitoring he will be discharged home without home care instructions and scheduled follow-up he is to be nonweightbearing may heel touch only for transfers with a cam boot to the left lower extremity otherwise rest and elevate.
--- NOTE | 2024-05-18 13:17 | PC.NURSE ---
postoperative blood sugar is 131 per POC
[2024-05-18 13:19] LABS: Glucose Point of Care 131 mg/dL (70-110)
--- NOTE | 2024-05-18 14:20 | ANE.PACU2 ---
Inpatient post-anesthesia follow up: Airway intact: Yes Vital signs: Temperature 97.8 F Pulse Rate 66 Respiratory Rate 18 Blood Pressure 142/88 Pulse Oximetry 98 Oxygen Delivery Me thod Room Air Oxygen Flow Rate Fraction of Inspir ed Oxygen Hydration adequate: Yes Nausea and vomiting: No Pain level: 1 Mental status: Baseline
== END 2024-05-18 14:20 | disposition home or self-care (01) ==
PROVIDERS: PCP Nurse Practitioner Family; Visit Provider Podiatrist Foot & Ankle Surgery
PROC: (CPT 28005; principal; 2024-05-18 13:00)
DX: E11.42 Type 2 diabetes mellitus with diabetic polyneuropathy (principal); S98.112A Complete traumatic amputation of left great toe, initial encounter; X58.XXXA Exposure to other specified factors, initial encounter; L97.524 Non-pressure chronic ulcer of other part of left foot with necrosis of bone; Z79.84 Long term (current) use of oral hypoglycemic drugs; Z79.4 Long term (current) use of insulin; E78.2 Mixed hyperlipidemia; F17.220 Nicotine dependence, chewing tobacco, uncomplicated
CPT/HCPCS: 28005; 36416; 82962; 87070; 87075; 87176; 87205; J0690; J2704; J3010; J3490; J7030

== ENCOUNTER → 2024-10-09 08:28 | Outpatient (BNVA) | payer BC, SELFPAY | PROVIDERS: PCP Nurse Practitioner Family; Visit Provider Podiatrist Foot & Ankle Surgery | DX: E11.621 Type 2 diabetes mellitus with foot ulcer (principal); L97.524 Non-pressure chronic ulcer of other part of left foot with necrosis of bone; E11.42 Type 2 diabetes mellitus with diabetic polyneuropathy; Z89.412 Acquired absence of left great toe; Z79.4 Long term (current) use of insulin; Z79.84 Long term (current) use of oral hypoglycemic drugs | CPT/HCPCS: 73630; 87070; 87075; 87205 ==

== ENCOUNTER 2024-10-25 10:09 | Day surgery (SDC) | payer BC, SELFPAY ==
[2024-10-25] VITALS (7 sets, daily range): BP systolic 124–152; BP diastolic 81–89; PULSE 71–79; RESP 16–18; TEMP 36.2–36.8; O2SAT 94–97; BMI 30.3
--- NOTE | 2024-10-25 11:28 | P.ANESASSM_ITS ---
Pre-Anesthetic Assessment Height/Weight: Height 1.85 m Weight 104.326 kg Temp Pulse Resp BP Pulse Ox O2 Del Method 98.2 F 79 18 139/82 96 Room Air 10/25/24 10:49 10/25/24 10:49 10/25/24 10:49 10/25/24 10:49 10/25/24 10:49 10/25/24 10:54 Preop Diagnosis: Osteomyelitis left foot Operation Date: 10/25/24 12:00 Proposed Procedures p : Incision bone cortex left third metatarsal(Left) - Jose Garnica DPM s Possible amputation of left second, third, fourth, fifth toes(Left) - Jose Garnica DPM Familial anesthetic complications: None Was Beta Jonathon taken within 24 hours: N/A Was Clonidine taken within 24 hours: N/A Last intake: Intake Last Liquid Date 10/24/24 Last Liquid Time 19:00 Last Solid Date 10/24/24 Last Solid Time 15:00 Social Tobacco (Chews) and No alcohol Exam alert, oriented x 3, clear to auscultation bilaterally and regular rate & rhythm Airway Mallampati: Class II Dentition: chipped and other (mutiple missing) Metabolic Diabetes Mellitus Anesthetic Plan ASA status: 3 Anesthesia: MAC Risk of > 500 ml blood loss (7ml/kg in children): No Medications/Allergies Home Medications ?Medication ?Instructions ?Recorded ?Confirmed ?Last Taken ?Type blood-glucose meter #1 ea 09/17/19 10/24/24 Unkn own Rx custom molded accomadative #1 ea 07/11/23 10/24/24 Unk nown Rx orthotics with a toe filler to the left metformin 500 mg tablet 1,000 mg (2 x 500 mg) PO BID 90 01/26/24 10/24/24 10/24/24 Rx days #360 tabs CAM walker #1 ea 04/17/24 10/24/24 Unkn own Rx doxycycline hyclate 100 mg capsule 100 mg PO BID 4 abdifatah delacruz #56 caps 10/24/24 10/24/24 10/24/24 Rx Allergies Allergy/AdvReac Type Severity Reaction Status Date / Time No Known Allergies Allergy Verified 10/24/24 08:03 [facility] Anesthesia Medical History Erectile dysfunction Rhus dermatitis Vitamin D deficiency Mixed hyperlipidemia Diabetes mellitus Surgical History History of ankle surgery 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
[2024-10-25 11:29] LABS: Glucose Point of Care 141 mg/dL (70-110)
[2024-10-25] MEDS: vancomycin 1,500 MG/300 ML PIGGYBACK 200 MG IV (11:47)
[2024-10-25] MEDS: sodium chloride 0.9% 1,000 ML 30 ML IV (11:50)
--- NOTE | 2024-10-25 12:21 | P.HPUD_ITS ---
Surgery/Procedure H&P Update DATE OF PROCEDURE: October 25, 2024 DATE H&P PERFORMED: 10/15/24 H&P UPDATE INFORMATION: I have reviewed H&P completed within last 30 days, I have examined patient prior to procedure, No changes to prior documentation and H&P is in [facility] on date indicated PREOP DIAGNOSIS: Osteomyelitis left foot PLANNED PROCEDURE: Operation Date: 10/25/24 12:00 Proposed Procedures p : Incision bone cortex left third metatarsal(Left) - Jose Garnica DPM s Possible amputation of left second, third, fourth, fifth toes(Left) - Jose Garnica DPM
[2024-10-25] MEDS: lidocaine 2% INJ 20 mL INJECTION (12:49)
--- NOTE | 2024-10-25 13:08 | P.OP_ITS ---
Operative Report Date of procedure: October 25, 2024 Pre-op diagnosis: Diabetic peripheral neuropathy associated with type 2 diabetes mellitus E11.42 History of amputation of left great toe S98.112A Wound of left foot S91.302A Chronic ulcer of left foot with necrosis of bone L97.524 Hammertoes left foot M20.42 Post-op diagnosis: Diabetic peripheral neuropathy associated with type 2 diabetes mellitus E11.42 History of amputation of left great toe S98.112A Wound of left foot S91.302A Chronic ulcer of left foot with necrosis of bone L97.524 Hammertoes left foot M20.42 Procedure done: Incision bone cortex left third metatarsal. CPT code 03356 Implants: 3-0 Vicryl, 4 nylon Surgeon: Jose Garnica DPM Aviculturist: Twila Estimated blood loss: 25 14 IV fluids: See intraoperative documentation Urine output: None Complications: None Findings: Devitalized bone left third metatarsal Brief History: Patient wishes to proceed with surgical intervention, incision of bone cortex left third metatarsal. I reviewed at length with the patient, the risks, potential complications, benefits, alternatives, expectations, and typical outcomes associated with the surgery. The risks and potential complications were explained in detail, including but not limited to infection, wound dehiscence or soft tissue complications, bleeding and hematoma, chronic edema, neuritis or nerve damage producing numbness or chronic pain, CRPS, failure to relieve pain or worsening pain, thick / painful / unsightly scar, limited motion / stiffness, malposition, delayed union, malunion, or nonunion, fracture, reaction to implants, anesthetic complications, venous thromboembolism, and deformity recurrence. I discussed the notion of no regrets with the patient as it pertains to complications and outcomes. The patient seemed to understand the nature of the proposed care and required convalescence. They asked appropriate questions, answered to their satisfaction. They are aware no guarantees can be made as to a satisfactory outcome and they understand there may be other possible unforeseen complications or outcomes not listed here that will be treated accordingly if they arise. There were no written or implied guarantees given to the patient. They gave informed consent to proceed. Procedure: Under mild sedation the patient was brought to the operating room and remained on the gurney in supine position. A timeout was performed. Anesthesia was then administered by the anesthesia service. Local anesthesia injected by myself consisting of 20 cc of one-to-one mixture 1% lidocaine and 0.5% Marcaine plain in a third ray block fashion to the left foot. Well-padded pneumatic tourniquet applied to the left ankle. Left lower extremity present scrubbed, prepped and draped utilizing normal aseptic technique and tourniquet inflated to 250 mmHg. Attention was directed to the left plantar forefoot where a full-thickness wound probing directly to bone at the undersurface of the left third metatarsal was appreciated this was debrided of devitalized tissue and postdebridement measurements 1.3 cm x 1.1 cm x 2 cm. Attention was directed to the dorsal aspect of the left third metatarsal where a linear longitudinal incision was made over the distal neck of the left third metatarsal with dissection carried down to periosteum utilizing sharp and blunt technique. Care was taken to retract and preserve neurovascular and tendinous structures. All bleeders were ligated and cauterized as necessary. Incision of bone cortex of the left third metatarsal head was performed and debrided of all devitalized bone this was then irrigated with copious amounts of sterile saline solution and closed in a layered fashion with subcutaneous tissue reapproximated with 3-0 Vicryl and skin with 4-0 nylon. Both a dorsal incision of the left foot and plantar left foot wound were dressed with Xeroform, sterile 4 x 4 gauze, Kerlix and Sanju wrap followed by application of a cam boot. Tourniquet was deflated and a prompt hyperemic response is noted to the distal digits of the left foot. Patient tolerated the procedure and anesthesia well and was transferred to the PACU with vital signs stable and vascular status intact. Following a period of postoperative monitoring he will be discharged home without home care instructions and scheduled follow-up.
--- NOTE | 2024-10-25 13:08 | W.PM.BPON ---
Date of Procedure: 10/28/23 Surgeon: Jose Garnica DPM Python Java Developer(s): Twila Procedure(s) performed: Incision of bone cortex from left foot Findings of the procedure(s): Osteomyelitis left foot third metatarsal head Estimated blood loss: 25 mL Specimen(s) removed: No specimens Post-operative diagnosis: Osteomyelitis left foot
--- NOTE | 2024-10-25 14:15 | ANE.PACU2 ---
Inpatient post-anesthesia follow up: Airway intact: Yes Vital signs: Temperature 97.2 F Pulse Rate 76 Respiratory Rate 18 Blood Pressure 150/86 Pulse Oximetry 96 Oxygen Delivery Me thod Room Air Oxygen Flow Rate Fraction of Inspir ed Oxygen Hydration adequate: Yes Nausea and vomiting: No Pain level: 1 Mental status: Baseline
== END 2024-10-25 14:19 | disposition home or self-care (01) ==
PROVIDERS: PCP Nurse Practitioner Family; Visit Provider Podiatrist Foot & Ankle Surgery
PROC: (CPT 28005; principal; 2024-10-25 12:00)
DX: E11.69 Type 2 diabetes mellitus with other specified complication (principal); M86.9 Osteomyelitis, unspecified; E78.2 Mixed hyperlipidemia; F17.220 Nicotine dependence, chewing tobacco, uncomplicated; E11.42 Type 2 diabetes mellitus with diabetic polyneuropathy; L97.524 Non-pressure chronic ulcer of other part of left foot with necrosis of bone; E11.621 Type 2 diabetes mellitus with foot ulcer; M20.42 Other hammer toe(s) (acquired), left foot; Z79.899 Other long term (current) drug therapy; Z79.4 Long term (current) use of insulin
CPT/HCPCS: 28005; 36416; 82962; J2704; J3010; J3370; J7030; J9999

== ENCOUNTER 2025-06-14 07:38 | Inpatient (IN) | payer BC, SELFPAY ==
[2025-06-14] VITALS (22 sets, daily range): BP systolic 106–159; BP diastolic 56–98; PULSE 84–111; RESP 16–24; TEMP 36.1–36.8; O2SAT 89–97; BMI 29.1; BMI 33.5
--- OUTSIDE RECORDS SUMMARY | 2025-06-14 07:44 | XMS_ITS | Data Portability ---
Author Organization [place] - [facility], [facility] Address [address] [place] [address] Assessment Encounter Date Assessment Date Assessment LastModified by Organization Details LastModified Time 03/22/2017 03/22/2017 [facility] Encounter is Documents review only, Check in done by scribe, All appropriate buttons clicked to expedite process, where it required usual provider, if one not Available, name was put in as usual provider, This may not reflect the actual information during check in process because without required info, Encounter cannot be generated. Labs reviewed-Abnorm al Labs circled if any, Documented on front page, PFTs reviewed. F/U with PCP if indicated. Paper work signed. See scanned papers for detail. [email or web address] Not available 03/22/2017 15:32:52 06/20/2018 06/20/2018 Encounter is Documents review only, Check in done by scribe, All appropriate buttons clicked to expedite process, where it required usual provider, if one not Available, name was put in as usual provider, This may not reflect the actual information during check in process because without required info, Encounter cannot be generated. Labs reviewed-Abnorm al Labs circled if any, Documented on front page, PFTs reviewed. F/U with PCP if indicated. Paper work signed. See scanned papers for detail. [email or web address] Not available 06/20/2018 11:07:52 06/10/2022 06/10/2022 Manual requisitions for Lead and Iron Binding filled out for [facility]. Will send results of labs with instructions to pt and results of lead to Prentice. [email or web address] Not available 06/10/2022 11:02:34 12/13/2023 12/13/2023 Bony abnormality noted to right foot, chronic, but no loss of sensation or skin changes. encouraged to f/u with podiatry and PCP for diabetes management. s/w Dr Kilgore and gave report, answered all questions. pt able to return to work without restrictions. RTC as needed. [email or web address] Not available 12/19/2023 08:58:13 Plan of Treatment Reminders Order Date Submit Date Provider Last Modified By Organization Details Last Modified Time Details Appointments None recorded . Lab CBC w/ diff 06/10/20 [facility], [address], [place], [address], 21:53:13 CMP, serum or plasma 06/10/20 [facility], [address], [place], [address], 21:53:13 TSH + free T4, serum 06/10/20 [facility], [address], [place], [address], 21:53:14 lipid panel, serum 06/10/20 [facility], [address], [place], [address], 21:53:13 PSA, serum or plasma 06/10/20 [facility], [address], [place], [address], 21:53:15 HbA1c (hemoglo bin A1c), blood 06/10/20 [facility], [address], [place], [address], 21:53:14 Referral None recorded . Procedures None recorded . Surgeries None recorded . Imaging None recorded . Medication Orders None recorded . Patient TargetsNo targets recorded. Patient Instructions Encounter Date Encounter Id Patient Instructions Last Modified By Organization Details Last Modified Time 03/22/2017 [id number] A healthy lifestyle: care instructions [email or web address] Not available 03/22/2017 16:25:06 06/20/2018 [id number] A healthy lifestyle: care instructions [email or web address] Not available 06/20/2018 21:21:55 Reason for Referral None Reported. Results Created Date Observation Date Name Description Value Unit Range Abnormal Flag Note LastModifiedBy Organization Detail LastModifiedTime 06/10/20 22 06/10/2022 CBC WBC 9.4 x10(3 )/uL 2.6 - 8.8 high Not Available [facility] [address], [place], [address], 06/10/2022 21:53:12 06/10/2006/10/2022 CBC RBC 5.42 x10(6 )/uL 3.60 - 5.30 high Not Available [facility] [address], [place], [address], 06/10/2022 21:53:12 06/10/20 22 06/10/2022 CBC HGB 16.8 g/dL 11.3 - 15.7 high Not Available [facility] [address], [place], [address], 06/10/2022 21:53:12 06/10/20 22 06/10/2022 CBC HCT 49.1 % 32.6 - 47.5 high Not Available [facility] [address], [place], [address], 06/10/2022 21:53:12 06/10/20 22 06/10/2022 CBC MCV 90.6 fL 80.3 - 103.4 Not Available [facility] [address], [place], [address], 06/10/2022 21:53:12 06/10/20 22 06/10/2022 CBC MCH 31.0 pg 26.0 - 34.4 Not Available [facility] [address], [place], [address], 06/10/2022 21:53:12 06/10/20 22 06/10/2022 CBC MCHC 34.2 g/dL 31.8 - 36.3 Not Available [facility] [address] [place], [place], [address], 06/10/2022 21:53:12 06/10/2006/10/2022 CBC platelet count 333 % 134 - 377 Not Available [facility] [address] [place], [place], [address], 06/10/2022 21:53:12 06/10/20 22 06/10/2022 CBC neut% 62.0 % 38.3 - 69.0 Not Available [facility] [address] [place], [place], [address], 06/10/2022 21:53:12 06/10/20 22 06/10/2022 CBC lymph% 29.6 % 17.5 - 47.9 Not Available [facility] [address] [place], [place], [address], 06/10/2022 21:53:12 06/10/20 22 06/10/2022 CBC mxd% 8.4 % 1.9 - 24.6 Not Available [facility] [address], [place], [address], 06/10/2022 21:53:12 06/10/20 22 06/10/2022 CBC neut# 5.8 x10(3 )/uL 1.2 - 5.3 high Not Available [facility] [address], [place], [address], 06/10/2022 21:53:12 06/10/20 22 06/10/2022 CBC lymph# 2.8 x10(3 )/uL 0.8 - 2.7 high Not Available [facility] [address] [place], [address], 06/10/2022 21:53:12 06/10/20 22 06/10/2022 CBC mxd# 0.8 x10(3 )/uL 0.1 - 1.5 Not Available [facility] [address] [place], [address], 06/10/2022 21:53:12 06/10/20 22 06/10/2022 CBC RDW-SD 44.3 fL 33.4 - 49.2 Not Available [facility] [address] [place], [address], 06/10/2022 21:53:12 06/10/20 22 06/10/2022 CBC RDW-CV 12.7 % 10.8 - 14.9 Not Available [facility] [address] [place], [address], 06/10/2022 21:53:12 06/10/20 22 06/10/2022 CBC MPV 9.9 fL 8.1 - 12.4 Not Available [facility] [address] [place], [address], 06/10/2022 21:53:12 06/10/20 22 06/10/2022 COMPR EHENS TOM METAB OLIC PANEL (CMP) sodium 132.6 mmol/ L 137.0 - 145.0 low Not Available [facility] [address] [place], [address], 06/10/2022 21:53:13 06/10/20 22 06/10/2022 COMPR EHENS TOM METAB OLIC PANEL (CMP) potassium 4.59 mmol/ L 3.50 - 5.10 Not Available [facility] [address] [place], [address], 06/10/2022 21:53:13 06/10/20 22 06/10/2022 COMPR EHENS TOM METAB OLIC PANEL (CMP) chloride 99 mmol/ L 98 - 107 Not Available [facility] [address] [place], [address], 06/10/2022 21:53:13 06/10/20 22 06/10/2022 COMPR EHENS TOM METAB OLIC PANEL (CMP) eco2 24 mmol/ L 22 - 30 Not Available [facility] [address] [place], [address], 06/10/2022 21:53:13 06/10/20 22 06/10/2022 COMPR EHENS TOM METAB OLIC PANEL (CMP) BUN/urea 12 mg/dL 9 - 20 Not Available [facility] [address] [place], [address], 06/10/2022 21:53:13 06/10/20 22 06/10/2022 COMPR EHENS TOM METAB OLIC PANEL (CMP) creatinine 0.90 mg/dL 0.66 - 1.25 Not Available [facility] [address] [place], [address], 06/10/2022 21:53:13 06/10/20 22 06/10/2022 COMPR EHENS TOM METAB OLIC PANEL (CMP) glucose 218 mg/dL 74 - 106 high Not Available [facility] [address] [place], [address], 06/10/2022 21:53:13 06/10/20 22 06/10/2022 COMPR EHENS TOM METAB OLIC PANEL (CMP) calcium 9.6 mg/dL 8.9 - 10.7 Not Available [facility] [address] [place], [address], 06/10/2022 21:53:13 06/10/20 22 06/10/2022 COMPR EHENS TOM METAB OLIC PANEL (CMP) albumin 4.3 g/dL 3.5 - 5.0 Not Available [facility] [address] [place], [address], 06/10/2022 21:53:13 06/10/20 22 06/10/2022 COMPR EHENS TOM METAB OLIC PANEL (CMP) AST 20 U/L 17 - 59 Not Available [facility] [address] [place], [address], 06/10/2022 21:53:13 06/10/20 22 06/10/2022 COMPR EHENS TOM METAB OLIC PANEL (CMP) alkaline phos 103 U/L 38 - 126 Not Available [facility] [address] [place], [address], 06/10/2022 21:53:13 06/10/20 22 06/10/2022 COMPR EHENS TOM METAB OLIC PANEL (CMP) total bilirubin 0.5 mg/dL 0.2 - 1.3 Not Available [facility] [address] [place], [address], 06/10/2022 21:53:13 06/10/20 22 06/10/2022 COMPR EHENS TOM METAB OLIC PANEL (CMP) total protein 7.2 g/dL 6.3 - 8.2 Not Available [facility] [address] [place], [address], 06/10/2022 21:53:13 06/10/20 22 06/10/2022 COMPR EHENS TOM METAB OLIC PANEL (CMP) eGFR 92 mL/mi n/1.7 3m2 >60 *eGFR Refer ence Value s Carolyn l: >60 mL/mi n/1.7 3m2 Abnor mal: < 60 mL/mi n/1.7 3m2 *eGFR Refer ence Value s Carolyn l: >60 mL/mi n/1.7 3m2 Abnor mal: < 60 mL/mi n/1.7 3m2 Not Available [facility] [address], [place], [address], 06/10/2022 21:53:13 06/10/20 22 06/10/2022 COMPR EHENS TOM METAB OLIC PANEL (CMP) A/G ratio 1.5 (calc ) 1.0 - 2.5 Not Available [facility] [address], [place], [address], 06/10/2022 21:53:13 06/10/20 22 06/10/2022 COMPR EHENS TOM METAB OLIC PANEL (CMP) globulin 2.9 g/dL_ (calc ) 1.9 - 3.7 Not Available [facility] [address], [place], [address], 06/10/2022 21:53:13 06/10/20 22 06/10/2022 COMPR EHENS TOM METAB OLIC PANEL (CMP) BUN/crea ratio 14 (calc ) 6 - 22 Not Available [facility] [address], [place], [address], 06/10/2022 21:53:13 06/10/20 22 06/10/2022 COMPR EHENS TOM METAB OLIC PANEL (CMP) ALT 19 U/L 0 - 50 Not Available [facility] [address], [place], [address], 06/10/2022 21:53:13 06/10/20 22 06/10/2022 LIPID PANEL cholesterol 206 mg/dL 0 - 200 high Not Available [facility] [address] [place], [address], 06/10/2022 21:53:13 06/10/20 22 06/10/2022 LIPID PANEL triglyceride s 185.5 mg/dL 0.0 - 199.0 Not Available [facility] [address] [place], [address], 06/10/2022 21:53:13 06/10/20 22 06/10/2022 LIPID PANEL direct HDL 35 mg/dL 40 - 60 low Not Available [facility] [address] [place], [address], 06/10/2022 21:53:13 06/10/20 22 06/10/2022 LIPID PANEL chol/DHDL ratio 6 %_(ca lc) 0 - 5 high Not Available [facility] [address] [place], [address], 06/10/2022 21:53:13 06/10/20 22 06/10/2022 LIPID PANEL LDL (calculated) 133 mg/dL 0 - 100 high Not Available [facility] [address] [place], [address], 06/10/2022 21:53:13 06/10/20 22 06/10/2022 LIPID PANEL VLDL (calculated) 37 mg/dL (calc ) 0 - 30 high Not Available [facility] [address] [place], [address], 06/10/2022 21:53:13 06/10/20 22 06/10/2022 TSH TSH 2.460 mIU/L 0.465 - 4.680 Not Available [facility] [address] [place], [address], 06/10/2022 21:53:14 06/10/20 22 06/10/2022 TSH free T4 1.17 NG/mL 0.78 - 2.19 Not Available [facility] [address] [place], [address], 06/10/2022 21:53:14 06/10/20 22 06/10/2022 HGBA1 C HGBA1C 9.0 % 4.0 - 6.0 high non-d iabet ic range : 4-6% ADA Targe t:<7% Above Targe t: 8-12% non-d iabet ic range : 4-6% ADA Targe t:<7% Above Targe t: 8-12% Not Available [facility] [address] [place], [address], 06/10/2022 21:53:14 06/10/20 22 06/10/2022 PSA PSA 1.030 NG/mL 0.064 - 4.000 Not Available [facility] [address] [place], [address], 06/10/2022 21:53:15 Result Notes None recorded. Problems Name Problem SNOMED Code Status Onset Date Resolution Date Notes Provider Name and Address Organization Details Recorded Time Adult health examinati on Active 2014 Created By: ONEYDA JULIAN; Modified By: ROBERT MORELAND; Category: DD; Examiner: Oneyda Julian; Medicine Descriptio n: ROUTINE HISTORY AND PHYSICAL; Display in Medcin: YES; Display in ESB: YES; Confidenti ality Level: Level 1; Type: Diagnosis Not Available [facility] 6 04:39:42 Abnormal finding on evaluatio n procedure [id number] Active 2014 Created By: ONEYDA JULIAN; Modified By: ROBERT MORELAND; Category: DD; Examiner: Oneyda Julian; Medicine Descriptio n: ROUTINE HISTORY AND PHYSICAL; Display in Medcin: YES; Display in ESB: YES; Srinivasani ality Level: Level 1; Type: Diagnosis Not Available [facility] 6 04:39:42 Body mass index 30+ - obesity 428348592 Active 2021 ONEYDA JULIAN NP [address], [address] , [facility] 11:02:21 Problem Notes None recorded. Procedures Surgical History Date Name Laterality Status Provider Name and Address Organization Details Recorded Time 05/15/20 23 amputation of toe completed [facility] 12/13/2023 16:52:46 06/10/20 22 venipuncture completed ONEYDA JULIAN NP [address], [address] [place] [address] 06/10/2022 11:01:22 Imaging Results None recorded. Procedure Notes None recorded. Medical Equipment None Reported. Allergies No known drug allergies Medications Name Sig Start Date Stop Date Status Note LastModified by Organization Details LastModified Time glipizide 2.5 mg-metformi n 250 mg tablet Take 1 tablet every day by oral route. active Not Available Not Available No t Available Vitals Date Recorded Body height Body mass index (BMI) Body weight Body temperature Respiratory rate Oxygen saturation Oxygen saturation in Arterial blood by Pulse oximetry Heart rate Systolic And Diastolic Provider Name and Address Organization Details Last Updated DateTime 4 185.42 cm 30.5 kg/m2 000305. 59 g 98.8 [degF] 18 /min 97 % 97 % 96 /min 120/85 mm[Hg] Nohemi [facility] 4 16:46:48 Date Recorded Body height Body mass index (BMI) Body weight Systolic And Diastolic Provider Name and Address Organization Details Last Updated DateTime 06/10/2022 185.42 cm 34.4 kg/m2 487027.61 g 142/80 mm[Hg] ONEYDA JULIAN NP [address], [address] 06/10/2022 11:01:04 Date Recorded Body height Body mass index (BMI) Body weight Heart rate Systolic And Diastolic Provider Name and Address Organization Details Last Updated DateTime 06/20/2018 185.42 cm 36.4 kg/m2 407595.4 9 g 87 /min 139/85 mm[Hg] Laurel Mo [facility] 8 11:07:23 Social History Question Answer Notes LastModified by Organizat ion Details LastModified Time Tobacco Smoking Status Never Smoker Nohemi Crowe [facility] 12/13/2023 16:50:15 Do You Have An Advance Directive? Yes [email or web address] Information n ot available 12/13/2023 Are You Blind Or Do You Have Difficulty Seeing? No [email or web address] Information n ot available 12/13/2023 Is Blood Transfusion Acceptable In An Emergency? Yes [email or web address] Information not available 12/13/2023 What Is Your Level Of Caffeine Consumption? None Information not available 12/13/2023 In The 14 Days Before Symptom Onset, Have You Had Close Contact With A Laboratory-confirm ed COVID-19 While That Case Was Ill? No [email or web address] Information n ot available 12/13/2023 In The 14 Days Before Symptom Onset, Have You Had Close Contact With A Person Who Is Under Investigation For COVID-19 While That Person Was Ill? No [email or web address] Information not available 12/13/2023 Have You Been To An Area Known To Be High Risk For COVID-19? No Information not available 12/13/2023 Are You Deaf Or Do You Have Serious Difficulty Hearing? No [email or web address] Information not available 12/13/2023 What Type Of Diet Are You Following? REGULAR [email or web address] Information n ot available 12/13/2023 Have You Processed Blood Or Body Fluids From An Ebola Virus Disease Patient Without Appropriate PPE? No [email or web address] Information not available 12/13/2023 What Is The Highest Grade Or Level Of School You Have Completed Or The Highest Degree You Have Received? [id number] [email or web address] Information not available 12/13/2023 What Was The Date Of Your Most Recent Tobacco Screening? 12/13/2023 [email or web address] Information not available 12/13/2023 How Many Children Do You Have? -1 Information not available 12/13/2023 What Is Your Relationship Status? Information not available 12/13/2023 Do You Use Your Seat Belt Or Car Seat Routinely? Yes Information not available 12/13/2023 Do You Have Difficulty Walking Or Climbing Stairs? No [email or web address] Information not available 12/13/2023 Sex: Male Functional Status Question Answer Note LastModified by [employer] Details LastModified Time Do you use any illicit or recreational drugs? No [email or web address] Information not available 12/13/2023 Do you or have you ever used any other forms of tobacco or nicotine? Yes [email or web address] Information not available 12/13/2023 What is your level of alcohol consumption? None [email or web address] Information not available 12/13/2023 Do you or have you ever used smokeless tobacco? Currently chews tobacco [email or web address] Information not available 12/13/2023 Are you currently employed? Yes Information not available 12/13/2023 Do you have transportation difficulties? No [email or web address] Information not available 12/13/2023 Are you able to walk independently without assistance or assistive devices? [email or web address] Information not available 12/13/2023 Do you have difficulty doing errands alone? No [email or web address] Information not available 12/13/2023 Are you able to care for yourself independently? Yes Information not available 12/13/2023 What is your occupation? [employer] [email or web address] Information not available 12/13/2023 Do you have difficulty dressing, bathing, grooming, or toileting? No [email or web address] Information not available 12/13/2023 What is your exercise level? Occasional Information not available 12/13/2023 Mental Status Question Answer Note LastModified by [employer] Details LastModified Time Do you feel stressed (tense, restless, nervous, or anxious, or unable to sleep at night)? [id number] Information not available 12/13/2023 Do you have difficulty concentrating, remembering or making decisions? No [email or web address] Information no t available 12/13/2023 Family History Nothing Reported. Medical History Condition Response Diabetes Y Past Encounters Encounter ID Performer Location Encounter Start Date Encounter Closed Date Diagnosis/Indication Diagnosis SNOMED-CT Code Diagnosis ICD10 Code Diagnosis IMO Codes Diagnosis Note [id number] DARYN MILLER MD [facility] [place] [address] 03/22/2017 14:49:18 03/22/2017 18:09:52 Adult health examination 151997432 Z00.01 Abnormal- Lipids, glucose. [id number] DARYN MILLER MD [facility] [place] [address] 06/20/2018 11:05:58 06/20/2018 11:20:19 Adult health examination 342870550 Z00.01 Abnormal- Hyperlipid emia, high Iron, high Glucose. [id number] FRANKIE YAO DO [facility] [place] [address] 06/10/2022 09:44:43 06/10/2022 11:16:14 Adult health examination 195343380 Z00.01 Body mass index 30+ - obesity 735406178 Z68.34 [id number] FRANKIE YAO DO [address] [address] 12/13/2023 16:19:45 12/19/2023 10:49:23 Accident while engaged in work-related activity 87478298 X58.XXXA Examinatio n for work accident 268355711 Z04.2 Acquired d eformity of ankle AND/OR foot 70335976 M21.969 chronic Health Concerns Section Related Observation LastModified by Organization Detai ls LastModified Time None Recorded Concern Status LastModified by Organization Details LastModified Time None Recorded Advance Directives Directive Y: Payers Insurance Date Sequence Insurance Name Policy Number Policy Cordon Covered Member ID Cordon Member ID Guarantor Name 06/10/2022 [employer]IROS [employer]--6 [id number] Aime Leonard [id number] Aime Leonard 12/27/2023 [employer]-650 Aime Leonard [id number] Aime Leonard Notes Date Note Type Note Provider Name and Address Organization Details Recorded Time 03/22/2017 text/html [facility]. Daryn ramirez, [facility] 03/22/2017 17:47:43 06/20/2018 text/html [facility]. Daryn ramirez, [facility] 06/20/2018 21:21:58 12/13/2023 text/html Pt presents for a work comp related injury. Pt stepped on a bolt with his boots on. Pt has history of diabetes and neuropathy. Pt presents to clinic for R foot injury. occurred yesterday. Hx of broke foot 4years ago. Pt states they have neuropathy in feet. Pt states it burned yesterday but doesn't hurt now.ALLI Son at [facility] in [place] is who manages his diabetes; sugars 123 this morning, but not sure what his last a1c was. May 2023 had toe amputated d/t diabetes.Pt has seen a director of clinical applications in the past at [place] and he told him to come back if the boneDrAguilar Garnica told pt his rt foot was broken, but never touched my foot Pt states when he's on his feel for long periods at a time, they become numb and tingly. [facility] would like a report from today's visit.[phone] Kilgore. KOLBY DAVENPORT, OLY [address], [address], [facility] 12/19/2023 08:58:51
[2025-06-14 08:25] LABS: Hematocrit 49.8 % (37-53); Hemoglobin 17.40 g/dL (11.27-16.99); Mean Corpuscular HGB Conc 34.9 g/dL (30-55); Mean Corpuscular Hemoglobin 31.6 pg (27-33); Mean Corpuscular Volume 90.4 fl (82-101); Nucleated Red Blood Cells % 0 %; Platelet Count 222 10^3/cmm (157-399); Red Blood Count 5.51 10^6/uL (3.85-5.65); White Blood Count 14.83 10^3/uL (3.29-11.43)
--- NOTE | 2025-06-14 08:33 | CT_ITS ---
WS: [id number] CT ABDOMEN AND PELVIS WITH CONTRAST HISTORY: abd pain TECHNIQUE: Imaging performed of the abdomen and pelvis with IV contrast. Single phase imaging of the abdomen. Coronal and sagittal reformats are submitted. All CT scans at [facility] use at least one of these dose optimization techniques: automated exposure control; mA and/or kV adjustment per patient size (includes targeted exams where dose is matched to clinical indication); or iterative reconstruction. IV CONTRAST: Omnipaque 350; 100 mL IV. Oral contrast: No DLP: 1021.79 mGy.cm COMPARISON: None available. Lower thorax: Lung bases are clear. Heart is normal size. Small hiatal hernia. Liver/biliary system: Normal size with no intrahepatic dilatation. Gallbladder: Abnormal gallbladder. There is diffuse gallbladder wall thickening with pericholecystic edema and gallstones. Intrahepatic duct is not dilated. Common bile duct is not dilated. Pancreas: Normal size pancreas and pancreatic duct. No adjacent inflammation. Spleen: Normal size spleen. No mass or infarct. Adrenal glands: Normal. Right kidney: Normal. Left kidney: Normal. Aorta: Normal. Lymphadenopathy: None. Free fluid: Tiny amount of free fluid in the pelvis. There is mesenteric edema in the RIGHT abdomen. Edema probably centered at the region of the gallbladder but extends anteriorly across the midline but also inferiorly along the ascending colon. GI tract: Stomach is normally distended. No small bowel obstruction. No appendicitis. Abdominal wall: Unremarkable abdominal wall. No hernia. Pelvis: Tiny amount of free fluid in the pelvis. Urinary bladder is mildly over distended. Prostate is enlarged and heterogeneous. Bones: Unremarkable. CT/CT abdomen pelvis w con* [id number] IMPRESSION: 1. Acute inflammatory process centered at the gallbladder. Suspect acute [place] cystitis. There is no intrahepatic duct dilatation. 2. The inflammatory process centered around the gallbladder extends across the anterior mesentery but also inferiorly along the ascending colon. No abscess. 3. Negative appendix. 4. Tiny amount of free fluid in the pelvis. 5. Urinary bladder is just slightly overdistended. 6. Small hiatal hernia.
[2025-06-14 08:37] LABS: Glucose Urine UA 3+ (Normal); Nitrate Urine Negative (Negative)
--- NOTE | 2025-06-14 08:39 | W.ED.ABDPA2 ---
HPI - Abdominal Pain General: Chief Complaint: Abdominal Pain Stated Complaint: abd pain Time Seen by Provider: 06/14/25 08:02 History of Present Illness: 62-year-old male presents emergency room complaining of suprapubic abdominal pains been intermittent for the last 3 days. He had some nausea a couple episodes of vomiting with no diarrhea he did have a normal bowel movement last night. He denies dysuria urgency or frequency no hematuria. Subjective intermittent fever. No previous surgeries he has not noticed anything that exacerbates or relieves that he has been able to eat in the interim. Associated Symptoms: Denies chills, dysuria and fever(s) Related Data Home Medications ?Medication ?Instructions ?Recorded ?Confirmed bismuth subsalicylate 262 mg/15 mL 524 mg PO QID PRN upset stomach 06/14/25 06/14/25 oral suspension (Pepto-Bismol) ibuprofen 200 mg tablet (Advil) 400 mg PO Q6H PRN Fever Or Pain 06/14/25 06/14/25 Previous Rx's ?Medication ?Instructions ?Recorded blood-glucose meter #1 ea 09/17/19 custom molded accomadative #1 ea 07/11/23 orthotics with a toe filler to the left metformin 500 mg tablet 1,000 mg (2 x 500 mg) PO BID 90 01/26/24 days #360 tabs CAM walker #1 ea 04/17/24 Allergies Allergy/AdvReac Type Severity Reaction Status Date / Time No Known Allergies Allergy Verified 06/14/25 08:03 Review of Systems Const: Denies: fever(s) or chills Card: Denies: chest pain Resp: Denies: dyspnea GI: Denies: abdominal pain : Denies: dysuria, urinary frequency or urinary urgency Musc: Denies: neck pain or back pain Skin/Breast: Denies: rash PFSH ED PFSH: Medical History Erectile dysfunction Rhus dermatitis Vitamin D deficiency Mixed hyperlipidemia Diabetes mellitus Surgical History History of ankle surgery 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, but does not know what was done Family History Other Diabetes Social History Smoking and tobacco/nicotine status: current every day tobacco/nicotine user (tobacco use chews smokeless tobacco) smokeless tobacco Smokeless tobacco user: snuff Household members: significant other Housing: House Marital status: 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) Physical Exam Const: GENERAL APPEARANCE: cooperative ORIENTATION/CONSCIOUSNESS: Yes awake, Yes oriented to person, Yes oriented to place and Yes oriented to time HENMT: COMMON NORMALS: normocephalic, atraumatic and hearing grossly normal bilaterally HEAD & SCALP: normocephalic and atraumatic Resp: COMMON NORMALS: normal respiratory effort, No retractions, No use of accessory muscles and clear to auscultation bilaterally AUSCULTATION: clear to auscultation bilaterally Cardio: COMMON NORMALS: regular rate, regular rhythm and No murmurs present (Cardio) RATE: regular rate RHYTHM: regular rhythm GI: COMMON NORMALS: No hepatosplenomegaly present AUSCULTATION: Yes normoactive bowel sounds PALPATION: Yes Tenderness to palpation present (GI) (Mild suprapubic), No Guarding due to palpation present (GI) and Yes No hepatosplenomegaly present Extremity: COMMON NORMALS: normal to inspection, capillary refill normal, no clubbing, cyanosis or edema, no calf tenderness and no pedal edema Neuro: SENSORIUM/ORIENTATION: Yes oriented to person, Yes oriented to place and Yes oriented to time Skin: COMMON NORMALS: no rashes or lesions noted GENERAL SKIN EXAM: no rashes or lesions noted Course Vital Signs: Vital signs: Vital Signs Temperature 97.0 F L 06/14/25 14:57 Pulse Rate 106 H 06/14/25 14:57 Respiratory Rate 18 06/14/25 14:57 Blood Pressure 106/76 06/14/25 14:57 Pulse Oximetry 94 06/14/25 14:57 Oxygen Delivery Me thod Room Air 06/14/25 14:57 MDM - Abdominal Pain Medical Decision Making Labs and imaging reviewed patient has leukocytosis no significant elevation of liver enzymes but does have significant findings on CT with signs of cholecystitis with inflammation extending across the ascending colon. Gallbladder ultrasound shows normal common bile duct I suspect that is why his pain is lower in his abdomen at this time. Patient started on Zosyn and given IV fluid boluses pain and nausea medications. Consulted surgery and will admit to hospitalist service. Medical Records I reviewed the patient's medical records. Lab Data I reviewed the patient's lab results. 06/14/25 08:07 06/14/25 12:20 Labs/Radiology: Radiology Impressions Abdomen/Pelvis CT 06/14/25 08:33 IMPRESSION: 1. Acute inflammatory process centered at the gallbladder. Suspect acute cholecystitis. There is no intrahepatic duct dilatation. 2. The inflammatory process centered around the gallbladder extends across the anterior mesentery but also inferiorly along the ascending colon. No abscess. 3. Negative appendix. 4. Tiny amount of free fluid in the pelvis. 5. Urinary bladder is just slightly overdistended. 6. Small hiatal hernia. Gallbladder Ultrasound 06/14/25 10:32 IMPRESSION: 1. Cholelithiasis with wall thickening. Differential includes acute cholecystitis and hepatocellular disease. 2. Hepatomegaly and hepatic steatosis. 3. Normal common bile duct. Chest X-Ray 06/14/25 12:03 IMPRESSION: 1. Negative chest. Laboratory Results WBC 14.83 10^3/uL (3.29-11.43) H 06/14/25 08:07 RBC 5.51 10^6/uL (3.85-5.65) 06/14/25 08:07 Hgb 17.40 g/dL (11.27-16.99) H 06/14/25 08:07 Hct 49.8 % (37-53) 06/14/25 08:07 MCV 90.4 fl (82-101) 06/14/25 08:07 MCH 31.6 pg (27-33) 06/14/25 08:07 MCHC 34.9 g/dL (30-55) 06/14/25 08:07 RDW 12.2 % (12.1-15.1) 06/14/25 08:07 Plt Count 222 10^3/cmm (157-399) 06/14/25 08:07 MPV 10.7 fL (7.4-10.4) H 06/14/25 08:07 Neut % (Auto) 82.8 % 06/14/25 08:07 Lymph % (Auto) 4.1 % 06/14/25 08:07 [place] % (Auto) 8.2 % 06/14/25 08:07 Eos % (Auto) 3.6 % 06/14/25 08:07 Baso % (Auto) 0.3 % 06/14/25 08:07 Neut # (Auto) 12.28 10^3/uL (1.8-7.7) H 06/14/25 08:07 Lymph # (Auto) 0.6 10^3/uL (0.8-4.8) L 06/14/25 08:07 [place] # (Auto) 1.2 10^3/uL (0.2-0.9) H 06/14/25 08:07 Eos # (Auto) 0.5 10^3/uL (0.0-0.8) 06/14/25 08:07 Baso # (Auto) 0.0 10^3/uL (0.0-0.1) 06/14/25 08:07 Nucleated RBC % (auto) 0 % 06/14/25 08:07 Nucleated RBCs # 0.0 /100WBC 06/14/25 08:07 Specimen Type Arterial 06/14/25 09:32 Sample Site Radial, right 06/14/25 09:32 ABG pH 7.45 (7.35-7.45) 06/14/25 09:32 ABG pCO2 32.1 mmHg (35-45) L 06/14/25 09:32 ABG pO2 78.6 mmHg (80.0-100.0) L 06/14/25 09:32 ABG PO2/FiO2 Ratio 374 06/14/25 09:32 ABG HCO3 22.5 mmol/L (22-26) 06/14/25 09:32 ABG O2 Saturation 96.8 06/14/25 09:32 ABG Base Excess -0.5 mmol/L (-2.0-2.0) 06/14/25 09:32 Ranulfo Test Pos 06/14/25 09:32 A-a O2 Gradient 4.0 mmHg (5-10) L 06/14/25 09:32 Hematocrit 50.3 % (42-52) 06/14/25 09:32 Hgb O2 Saturation 95.7 % (95-100) 06/14/25 09:32 Carboxyhemoglobin 1.2 %THgb (0.4-20.1) 06/14/25 09:32 Methemoglobin < 0.0 % (0.4-1.5) L 06/14/25 09:32 Total Hemoglobin 16.4 g/dL (14-18) 06/14/25 09:32 Sodium 125.0 mmol/L (131-143) L 06/14/25 09:32 Potassium 3.6 mmol/L (3.5-5.0) 06/14/25 09:32 Glucose 283.0 mg/dL (70-115) H 06/14/25 09:32 Ionized Calcium 1.2 mmol/L (1.1-1.4) 06/14/25 09:32 O2 Delivery Device Room air 06/14/25 09:32 FiO2 21.0 % 06/14/25 09:32 Gatehouse Attendant ID [place] 06/14/25 09:32 Sodium 124 mmol/L (136-145) L 06/14/25 08:07 Potassium 4.0 mmol/L (3.5-5.1) 06/14/25 08:07 Chloride 79 mmol/L (98-107) L 06/14/25 08:07 Carbon Dioxide 23 mmol/L (22-29) 06/14/25 08:07 Anion Gap 26.0 (5-19) H 06/14/25 08:07 BUN 23 mg/dL (8-23) 06/14/25 08:07 Creatinine 0.9 mg/dL (0.7-1.2) 06/14/25 08:07 GFR Calculation 85.5 mL/min (90-130) L 06/14/25 08:07 Glucose 354 mg/dL (65-115) H 06/14/25 08:07 POC Glucose 198 mg/dL (70-110) H 06/14/25 11:59 Calculated Osmolality 276 mOsm/kg (285-295) L 06/14/25 08:07 Lactic Acid 2.8 mmol/L (0.5-2.2) H 06/14/25 08:07 Lactic Acid (Sepsis) 1.4 mmol/L (0.5-2.2) 06/14/25 11:10 Calcium 10.0 mg/dL (8.5-10.5) 06/14/25 08:07 Magnesium 2.3 mg/dL (1.7-2.3) 06/14/25 11:10 Total Bilirubin 1.0 mg/dL (0.15-1.2) 06/14/25 08:07 AST 39 U/L (0-40) 06/14/25 08:07 ALT 25 U/L (0-41) 06/14/25 08:07 Alkaline Phosphatase 113 U/L (40-130) 06/14/25 08:07 Creatine Kinase 540 U/L (39-308) H* 06/14/25 08:07 Total Protein 7.9 g/dL (6.6-8.7) 06/14/25 08:07 Albumin 3.7 g/dL (3.5-5.2) 06/14/25 08:07 Globulin 4.2 g/dL (1.3-4.6) 06/14/25 08:07 Lipase 18 U/L (13-60) 06/14/25 08:07 Urine Color Yellow (Yellow) 06/14/25 07:55 Urine Appearance Clear (CLEAR) 06/14/25 07:55 Urine pH 5.5 (5-7) 06/14/25 07:55 Ur Specific [place] 1.035 (1.005-1.030) H 06/14/25 07:55 Urine Protein 2+ (Negative) A 06/14/25 07:55 Urine Glucose (UA) 3+ (Normal) H 06/14/25 07:55 Urine Ketones 1+ (Negative) H 06/14/25 07:55 Urine Blood 3+ (Negative) A 06/14/25 07:55 Urine Nitrate Negative (Negative) 06/14/25 07:55 Urine Bilirubin Negative (Negative) 06/14/25 07:55 Urine Urobilinogen 0.2 mg/dL (Negative) 06/14/25 07:55 Ur Leukocyte Esterase Negative (Negative) 06/14/25 07:55 Urine RBC 0-2 /hpf (0-2) 06/14/25 07:55 Urine WBC 0-5 /hpf (0-5) 06/14/25 07:55 Ur Squamous Epith Cells 0-5 /hpf (0-5) 06/14/25 07:55 Amorphous Sediment Not Reportable 06/14/25 07:55 Urine Bacteria None seen /hpf (NONE) 06/14/25 07:55 Hyaline Casts 1.21 /lpf 06/14/25 07:55 Serum Ketones Positive (Negative) H 06/14/25 08:07 All radiology interpretation(s) finalized by discharge EKG Data EKG 1: Interpretation: 1031 2025-07-16 A-fib with a rate of 100.5. QTc 435. No acute ST changes no previous EKGs for comparison Discharge Plan Discharge Patient Disposition: Admitted As Inpatient Admit Provider: Don Funk Clinical Impression: Acute cholecystitis, DKA (diabetic ketoacidosis) Diabetes mellitus Qualifiers: Diabetes mellitus type: type 2 Diabetes mellitus long filler cigar roller machine insulin use: without long filler cigar roller machine use Diabetes mellitus complication status: with other specified complication Qualified Code(s): E11.69 - Type 2 diabetes mellitus with other specified complication Condition: Stable Coding Level of Care Code ED [employer]ke [employer] for Matias Ye
[2025-06-14 08:42] LABS: Add Urine Microscopic? YES
[2025-06-14 08:45] LABS: Alanine Aminotransferase 25 U/L (0-41); Albumin Level 3.7 g/dL (3.5-5.2); Alkaline Phosphatase 113 U/L (40-130); Aspartate Amino Transferase 39 U/L (0-40); Blood Urea Nitrogen 23 mg/dL (8-23); Calcium 10.0 mg/dL (8.5-10.5); Carbon Dioxide 23 mmol/L (22-29); Chloride 79 mmol/L (98-107); Creatinine Clr Calc Pharmacy 108.9424; Globulin 4.2 g/dL (1.3-4.6); Glucose 354 mg/dL (65-115); Lipase 18 U/L (13-60); Osmolality Calculated 276 mOsm/kg (285-295); Sodium 124 mmol/L (136-145); Total Protein 7.9 g/dL (6.6-8.7)
[2025-06-14 09:03] LABS: Anion Gap 26.0 (5-19); Potassium 4.0 mmol/L (3.5-5.1)
[2025-06-14 09:09] LABS: Specific Gravity, Urine 1.035 (1.005-1.030)
[2025-06-14] MEDS: iohexol 350 mg/mL 500 mL Btl (per mL) IV (09:25)
[2025-06-14 09:31] LABS: Ketone (Acetest) Serum Positive (Negative)
[2025-06-14 09:45] LABS: ABG PCO2 32.1 mmHg (35-45); ABG PH Result 7.45 (7.35-7.45); Alveolar-Arterial Oxygen Gradi 4.0 mmHg (5-10); Arterial Blood Gas Hematocrit 50.3 % (42-52); Blood Gas Allen Test Pos; Blood Gas Operator Identificat MONRO; Blood Gas Sample Site Radial, right; Blood Gas Sample Type Arterial; Carboxyhemoglobin 1.2 %THgb (0.4-20.1); Glucose Level-ABG 283.0 mg/dL (70-115); HCO3 ABG 22.5 mmol/L (22-26); Ionized Calcium Level - ABG 1.2 mmol/L (1.1-1.4); Methemoglobin < 0.0 % (0.4-1.5); Oxygen Saturation ABG 96.8; PO2 ABG 78.6 mmHg (80.0-100.0); PO2 FiO2 Ratio Arterial Blood 374; Potassium Level - ABG 3.6 mmol/L (3.5-5.0); Sodium Level - ABG 125.0 mmol/L (131-143)
--- NOTE | 2025-06-14 10:32 | US_ITS ---
WS: [id number] RIGHT UPPER QUADRANT ULTRASOUND HISTORY: cholecystiis COMPARISON: CT 06/14/2025 Liver: 21.6 cm in length. Enlarged liver. Diffuse mild hepatic steatosis. No intrahepatic duct dilatation. Portal Vein: Normal hepatopetal flow with monophasic waveform. Gallbladder: Gallbladder is normally distended. Numerous stones are present within the gallbladder. Gallbladder wall measures 4 mm. There is diffuse gallbladder wall thickening. CBD: 0.5 cm Pancreas: Not visualized. Right kidney: 12.4 cm in length. Normal size and echogenicity. No hydronephrosis or mass. Aorta and IVC: Unremarkable abdominal aorta and IVC. No ascites. US/US gall bladder [id number] IMPRESSION: 1. Cholelithiasis with wall thickening. Differential includes acute cholecysti tis and hepatocellular disease. 2. Hepatomegaly and hepatic steatosis. 3. Normal common bile duct.
[2025-06-14] MEDS: piperacillin-tazobactam 3.375 GM in sodium chloride 0.9% (plus) 50 ML IV ×3 (10:35→21:48)
--- NOTE | 2025-06-14 10:37 | P.CONIM_ITS ---
Providers/Reason For Consult 2 Consulting Physician/Specialty*: General Surgery Reason for Consult*: Acute cholecystitis Primary Care Provider: JOE Merida History of Present Illness History of Present Illness Aime Leonard is a 64 year old male Who presents to the hospital with 4 days of abdominal pain. According to the patient he started to have intermittent abdominal pain and he On Tuesday the pain has become more constant and radiated to the umbilical area. He presented to the ER where workup was done he was noted to be tachycardic with a heart rate of about 107 he had a white count of [address] scan showing evidence of acute inflammatory process in the right upper quadrant most likely consistent with acute cholecystitis, the inflammatory process also extends into the pericholecystic tissue and descending colon. Of note patient has also an early DKA with elevated blood glucose high and gap and positive ketones in the urine. I have been consulted for management of acute cholecystitis Review of Systems 2 General: Reports: 10 or more systems reviewed and unremarkable except in HPI and below Medications/Allergies Home Medications ?Medication ?Instructions ?Recorded ?Confirmed ?Last Taken ?Type blood-glucose meter #1 ea 09/17/19 05/28/25 Unkn own Rx custom molded accomadative #1 ea 07/11/23 05/28/25 Unk nown Rx orthotics with a toe filler to the left metformin 500 mg tablet 1,000 mg (2 x 500 mg) PO BID 90 01/26/24 05/28/25 10/24/24 Rx days #360 tabs CAM walker #1 ea 04/17/24 05/28/25 Unkn own Rx doxycycline hyclate 100 mg capsule 100 mg PO BID 05/2805/28/25 Unknown History Allergies Allergy/AdvReac Type Severity Reaction Status Date / Time No Known Allergies Allergy Verified 06/14/25 08:03 Current Medications Generic Name Dose Route Start Last Admin Trade Name Freq PRN Reason Stop Dose Admin Sodium Chloride 1,000 mls @ 999 mls/hr 06/14/25 10:21 06/14/25 10:35 Sodium Chloride 0.9% IV 06/14/25 11:21 999 mls/hr .Q1H1M ONE Administration PFSH Acute 2 PFSH: Medical History (Updated 06/14/25 @ 10:42 by Harpreet Kam MD) Erectile dysfunction Rhus dermatitis Vitamin D deficiency Mixed hyperlipidemia Diabetes mellitus Surgical History History of ankle surgery 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, but does not know what was done Family History Other Diabetes Social History Smoking and tobacco/nicotine status: current every day tobacco/nicotine user (tobacco use chews smokeless tobacco) smokeless tobacco Smokeless tobacco user: snuff Household members: significant other Housing: House Marital status: Current occupation: [employer] Current occupational exposures/hazards: Yes (lead and othe exposures) Vitals/I&O/Wt Last Vital Signs Pulse 107 H 06/14/25 08:01 Resp 18 06/14/25 08:01 BP 159/95 06/14/25 08:01 Pulse Ox 95 06/14/25 08:01 O2 Del Method Room Air 06/14/25 08:01 06/13/25 06/14/25 06/14/25 22:59 06:59 14:59 Intake Total 1000 / 1000 Balance 1000 / 1000 Weight last 48 hrs Weight 227 lb Physical Exam 2 GI: OTHER: Abdominal examination is benign the abdomen is soft there is tenderness to palpation in the mid abdomen small amount of tenderness in the right upper quadrant. Data 06/14/25 08:07 06/14/25 08:07 A&P Assessment and plan 1. Diabetes mellitus: 2. Acute cholecystitis: 3. DKA (diabetic ketoacidosis): Plan: 64-year-old male presenting to the hospital with abdominal pain and possible DKA in the setting of acute cholecystitis. I have explained to the patient and the family that I do think that the main cause of his current symptoms is acute cholecystitis. The inflammatory process appears to be severe but since his symptoms are significant I think the best option will be to proceed to the OR for laparoscopic possible open cholecystectomy. I discussed all risks and benefits with the patient including but not limited to the risks of bleeding, infection, damage to surrounding structures including liver, duodenum, colon, risk of injuring bile ducts requiring extensive surgery at higher level of care facility, risk of retained stones, bile leak, bili [place], need for subtotal cholecystectomy, hernia and wound related complications, need to conversion to open procedure. Patient shows understanding and would like to proceed. Before proceeding to the OR we will start resuscitation and IV antibiotics plan will be to proceed to the OR this afternoon after initial resuscitation. I appreciate all other management per primary team PDMP PDMP Reviewed: Not Reviewed Coding Level of Care Code 99848 Diagnoses Diabetes mellitus E11.9 Acute cholecystitis K81.0 DKA (diabetic ketoacidosis) E11.10
[2025-06-14 10:49] LABS: Lactic Sepsis W/Reflex 2.8 mmol/L (0.5-2.2); Reflex Lactate Order REFLEX LACTIC ORDERD
[2025-06-14] MEDS: insulin regular-human 100 units/1 mL 5 UNIT IVP (11:10)
[2025-06-14 11:33] LABS: Lactic Acid level (Lactate) 1.4 mmol/L (0.5-2.2)
--- NOTE | 2025-06-14 11:49 | P.HP_ITS ---
Providers/Chief Complaint 2 Primary Care Provider: JOE Merida Chief Complaint: abd pain History of Present Illness Aime Leonard is a 64 year old gentleman with a history of diabetes mellitus (on metformin) and hyperlipidemia presents with 3?4 days of abdominal pain. Reports a few episodes of vomiting earlier in the course but none today. Wilson subjectively febrile at home. Denies diarrhea, gastrointestinal bleeding (no dark/black stools), hematuria, or urinary symptoms. Last oral intake was last night. Checks blood glucose at home; recent readings around 180 mg/dL, previously in the 120s. Mentions prior hemoglobin A1c around 7.5% per prior records. Denies history of hypertension, coronary artery disease, stroke, or chronic lung disease. No history of sleep apnea. Uses ibuprofen occasionally for headaches. No known medication allergies. Lives with . Review of Systems 2 Const: Denies: fever(s), chills, body aches or malaise ENMT: Denies: throat pain Card: Denies: chest pain, edema, pre-syncope or dyspnea on exertion Resp: Denies: dyspnea, productive cough, change in phlegm color or hemoptysis GI: Reports: abdominal pain, nausea and vomiting; Denies: diarrhea, constipation, hematochezia or melena : Denies: flank pain, difficulty urinating, urinary frequency or hematuria Musc: Denies: back pain, joint swelling or joint redness Skin/Breast: Denies: rash or new lesions Neuro: Denies: headache(s) or confusion Medications/Allergies Home Medications ?Medication ?Instructions ?Recorded ?Confirmed ?Last Taken ?Type blood-glucose meter #1 ea 09/17/19 05/28/25 Unkn own Rx custom molded accomadative #1 ea 07/11/23 05/28/25 Unk nown Rx orthotics with a toe filler to the left metformin 500 mg tablet 1,000 mg (2 x 500 mg) PO BID 90 01/26/24 05/28/25 10/24/24 Rx days #360 tabs CAM walker #1 ea 04/17/24 05/28/25 Unkn own Rx doxycycline hyclate 100 mg capsule 100 mg PO BID 05/2805/28/25 Unknown History Allergies Allergy/AdvReac Type Severity Reaction Status Date / Time No Known Allergies Allergy Verified 06/14/25 08:03 PFSH Acute 2 PFSH: Medical History Erectile dysfunction Rhus dermatitis Vitamin D deficiency Mixed hyperlipidemia Diabetes mellitus Surgical History History of ankle surgery 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, but does not know what was done Family History Other Diabetes Social History Smoking and tobacco/nicotine status: current every day tobacco/nicotine user (tobacco use chews smokeless tobacco) smokeless tobacco Smokeless tobacco user: snuff Household members: significant other Housing: House Marital status: Current occupation: [employer] Current occupational exposures/hazards: Yes (lead and othe exposures) Vitals/I&O/Wt Last Vital Signs Temp 97.8 F 06/14/25 11:31 Pulse 108 H 06/14/25 10:33 Resp 18 06/14/25 10:03 BP 138/98 06/14/25 10:33 Pulse Ox 89 L 06/14/25 10:33 O2 Del Method Room Air 06/14/25 10:33 06/13/25 06/14/25 06/14/25 22:59 06:59 14:59 Intake Total 2049 Balance 2049 Weight last 48 hrs Weight 102.965 kg Physical Exam 2 Const: COMMON NORMALS: patient oriented x3 and alert GENERAL APPEARANCE: c ooperative ORIENTATION/CONSCIOUSNESS: Yes awake HENMT: COMMON NORMALS: oropharynx normal Neck/C-Spine: COMMON NORMALS: no JVD Resp: COMMON NORMALS: normal respiratory effort and clear to auscultation bilaterally AUSCULTATION: clear to auscultation bilaterally Cardio: COMMON NORMALS: no JVD, regular rhythm, S1 normal heart sound present, S2 normal heart sound present and No murmurs present (Cardio) RHYTHM: regular rhythm HEART SOUNDS: S1 normal heart sound present and S2 normal heart sound present GI: COMMON NORMALS: Normal to inspection, nondistended, normoactive bowel sounds present and Soft to palpation PALPATION: Yes Soft to palpation and Yes Tenderness to palpation present (GI) Details: RUQ OTHER: Positive Bianchi Extremity: COMMON NORMALS: no joint enlargement GENERAL: Yes edema (Trace) Neuro: COMMON NORMALS: patient oriented x3 and moves all extremities S ENSORIUM/ORIENTATION: Yes alert Skin: COMMON NORMALS: no rashes or lesions noted GENERAL SKIN EXAM: no rashes or lesions noted Quick SOFA Score: Respiratory Rate: 18 Blood Pressure: 138/98 qSOFA Score: 0 If qSOFA score 2 or greater, continue: PaO2/FiO2 Ratio (mmHg): 374 Blood Pressure Mean: 111 Bilirubin (mg/dl): 1.0 Platelets (x10?/ml): 222 C reatinine (mg/dl): 0.9 Evaluation: Current stage of sepsis: ruled out/differential diagnosis Noninfectious sepsis mimickers: diabetic ketoacidosis Sepsis stage criteria used: Sepsis-3 Crystalloid fluids: 30 mL/kg crystalloid fluids ordered and initiated within 3 hours Possible source: GI tract/intra-abdominal Focused Exam: Vital signs: Temp Pulse Resp BP Pulse Ox O2 Del Method 06/14/25 11:31 97.8 F 06/14/25 10:33 108 H 138/98 89 L Room Air 06/14/25 10:03 111 H 18 150/79 93 06/14/25 09:33 108 H 18 157/96 93 Room Air 06/14/25 08:03 97 93 Room Air 06/14/25 08:01 107 H 18 159/95 95 Room Air Respiratory exam: CTA bilaterally Cardiovascular exam: regular rate and tachycardia Capillary refill: < 3 Seconds Skin exam: pallor not present and no mottling Date exam was performed: 06/14/25 Time exam was performed: 11:59 2 Sepsis Screen No Definite Risk Today, 11:31 Respiratory Rate, (12 - 18) 18 breaths/min Today, 10:03 Blood Pressure 138/98 mmHg Today, 10:33 Quick SOFA Score 0 Today, 10:33 SOFA Score: 2 ABG PO2/FiO2 Ratio 374 Today, 09:32 Blood Pressure Mean 111 mmHg Today, 10:33 Total Bilirubin, (0.15-1.2) 1.0 mg/dL Today, 08:07 Platelet Count, (157-399) 222 10^3/cmm Today, 08:07 Creatinine, (0.7-1.2) 0.9 mg/dL Today, 08:07 Data 06/14/25 08:07 06/14/25 08:07 A&P Assessment and plan 1. Acute cholecystitis: Abdominal pain since Tuesday nausea episodes of vomiting. Poor oral intake. CT abdomen/pelvis showed acute inflammatory process centered at the gallbladder, suspected acute cholecystitis; inflammation extends across the anterior mesentery and inferiorly along the ascending colon; no abscess; appendix negative. Reviewed vitals, CBC with noted sinus tachycardia, leukocytosis, possibly related to infection with acute cholecystitis, lactic acid obtained initial was 2.8 repeat 1.4 after resuscitation. Does also have DKA. Possible sepsis not entirely excluded. Without end organ injury. Reviewed ABG, chemistry, UA, serum ketones, CT abdomen pelvis, ED provider note, discussed with the provider. Discussed with surgeon. - Continue piperacillin-tazobactam (Zosyn). - Surgery consulted; plan for laparoscopic cholecystectomy today (timing this afternoon) with discussion that open approach may be needed depending on intraoperative findings. Discussed risks as per NSQIP estimation based on his risk factors, except with inclusion of smoking. - Keep NPO (nothing by mouth). - Risks of surgery and anesthesia discussed with the patient; he wishes to proceed. - Obtain baseline EKG 2. DKA (diabetic ketoacidosis): Mild/early DKA with anion gap elevation 26 with positive urine and serum ketones with hyperglycemia. Received fluid resuscitation 3 L normal saline in ED. Received 10 units IV insulin. Initial glucose 350 4 repeat 273. Will give 5 units of Lantus subcu as well as request sliding scale every 6 hours. Monitor POC glucose. Monitor for risk of hypoglycemia. Will repeat BMP with noted hyponatremia, reassess potassium check magnesium. So far responding to fluid resuscitation with heart rate improvement down to 90s lactic acid down from 2.8-1.4. 3. Diabetes mellitus: Discussed with him subcutaneous insulin while in the hospital. May resume metformin after discharge. Monitor POC glucose. Monitor for hypoglycemia, hypoglycemia protocol. Consistent carbohydrate diet once resumed. 4. Hypoxia: Mild hypoxia. On ABG minimal hypoxemia pO2 78.6. Denies smoking, chews tobacco. No respiratory complaints recently. Will obtain chest x-ray. Denies known sleep apnea. Plan: Rhabdomyolysis: Mild rhabdomyolysis. CK checked 540. Follow-up level. Pain and nausea management : Symptom control for abdominal pain and nausea. - Acetaminophen as needed for pain. - IV morphine as needed for severe pain. - Ketorolac (Toradol) added by surgery. - Ondansetron (Zofran) as needed for nausea. Tobacco (chewing) use : Uses chewing tobacco; does not smoke. - Nicotine replacement as needed. Pre-operative evaluation and perioperative management : Preparation and monitoring for planned cholecystectomy. - Obtain baseline electrocardiogram (EKG). - Keep NPO. - Continue antibiotics per surgery. PDMP PDMP Reviewed: Not Reviewed Attestations 2 Medical Necessity Statement*: Admission over 2 midnights anticipated for acute cholecystitis with early DKA with underlying diabetes. and High MDM includes amount and/or complexity of data reviewed/ordered [ previous or external records, resulted lab(s)/test(s), ordered lab(s)/test(s) and other healthcare professional discussion] and described risk of complication, morbidity or mortality of management as documented Diagnoses Acute cholecystitis K81.0 DKA (diabetic ketoacidosis) E11.10 Diabetes mellitus E11.9 Hypoxia R09.02
--- NOTE | 2025-06-14 12:02 | ECG_ITS ---
Qloud Test Date: 2025-06-14 Pat Name: Aime Leonard Department: Room: Gender: Male Test Technician: : 1960 Requested By: Don Funk Order Number: [id number] Reading MD: NATALEE METZGER Measurements Intervals [place] Rate: 105 P: 0 AK: 0 QRS: 29 QRSD: 82 T: 60 QT: 329 QTc: 435 Interpretive Statements ATRIAL FIBRILLATION WITH RAPID VENTRICULAR RESPONSE LOW QRS VOLTAGE IN PRECORDIAL LEADS [QRS DEFLECTION < 1.0 mV IN CHEST LEADS] ABNORMAL RHYTHM ECG No previous ECG available for comparison Electronically Signed On 06-15-2025 21:19:39 CDT by NATALEE METZGER [email or web address] [id number]
--- NOTE | 2025-06-14 12:03 | XR_ITS ---
WS: [id number] Exam: XR chest 1V portable [id number] Date/Time of Exam: 06/14/2025 12:05 PM Reason For Exam: Hypoxia No priors. Lungs are clear and fully expanded. Normal cardiomediastinal silhouette. No pleural effusion. Bony structures are intact. XR/XR chest 1V portable [id number] IMPRESSION: 1. Negative chest.
[2025-06-14] MEDS: insulin glargine 100 units/1 mL 5 UNIT SUBCUT (12:12)
[2025-06-14 12:19] LABS: Magnesium 2.3 mg/dL (1.7-2.3)
[2025-06-14 12:43] LABS: Anion Gap 20.6 (5-19); Blood Urea Nitrogen 21 mg/dL (8-23); Calcium 8.3 mg/dL (8.5-10.5); Carbon Dioxide 22 mmol/L (22-29); Chloride 91 mmol/L (98-107); Creatinine Clr Calc Pharmacy 108.9424; Glucose 231 mg/dL (65-115); Osmolality Calculated 280 mOsm/kg (285-295); Potassium 3.6 mmol/L (3.5-5.1); Sodium 130 mmol/L (136-145)
--- NOTE | 2025-06-14 15:00 | P.ANESASSM_ITS ---
Pre-Anesthetic Assessment Height/Weight: Height 1.88 m Weight 102.965 kg Temp Pulse Resp BP Pulse Ox O2 Del Method 97.0 F L 106 H 18 106/76 94 Room Air 06/14/25 14:57 06/14/25 14:57 06/14/25 14:57 06/14/25 14:57 06/14/25 14:57 06/14/25 14:57 Operation Date: 06/14/25 15:15 Proposed Procedures p Laparoscopic Cholecystectomy(Not Applicable) - Harpreet Kam MD Familial anesthetic complications: none Was Beta Jonathon taken within 24 hours: N/A Was Clonidine taken within 24 hours: N/A Last intake: Intake Last Liquid Date 06/13/25 Last Liquid Time 20:00 Last Solid Date 06/13/25 Last Solid Time 20:00 Social Tobacco and No alcohol Exam alert, oriented x 3, clear to auscultation bilaterally and regular rate & rhythm Airway Mallampati: Class III Dentition: chipped Metabolic Diabetes Mellitus Anesthetic Plan ASA status: 3 Anesthesia: General Risk of > 500 ml blood loss (7ml/kg in children): No Medications/Allergies Home Medications ?Medication ?Instructions ?Recorded ?Confirmed ?Last Taken ?Type blood-glucose meter #1 ea 09/17/19 06/14/25 Unkn own Rx custom molded accomadative #1 ea 07/11/23 06/14/25 Unk nown Rx orthotics with a toe filler to the left metformin 500 mg tablet 1,000 mg (2 x 500 mg) PO BID 90 01/26/24 06/14/25 06/13/25 Rx days #360 tabs CAM walker #1 ea 04/17/24 06/14/25 Unkn own Rx bismuth subsalicylate 262 mg/15 mL 524 mg PO QID PRN u pset stomach 06/14/25 06/14/25 06/13/25 21:00 History oral suspension (Pepto-Bismol) ibuprofen 200 mg tablet (Advil) 400 mg PO Q6H PRN Feve r Or Pain 06/14/25 06/14/25 06/05/25 History Allergies Allergy/AdvReac Type Severity Reaction Status Date / Time No Known Allergies Allergy Verified 06/14/25 08:03 Current Medications Generic Name Dose Route Start Last Admin Trade Name Freq PRN Reason Stop Dose Admin Sodium Chloride 1,000 mls @ 30 mls/hr 06/14/25 15:30 06/14/25 15:54 Sodium Chloride 0.9% IV 06/15/25 15:29 30 mls/hr .Q24H IRAJ Administration Insulin Human Lispro 0 unit 06/14/25 11:45 06/14/25 12:15 Insulin Lispro 100 Unit/1 Ml SUBCUT Not Given Q6H IRAJ Protocol Ketorolac Tromethamine 15 mg 06/14/25 10:45 06/14/25 10:50 Ketorolac 30 Mg/Ml Inj IVP 06/19/25 10:44 15 mg Q6H IRAJ Administration PFSH Anesthesia Medical History (Updated 06/14/25 @ 12:02 by Don Funk MD) Erectile dysfunction Rhus dermatitis Vitamin D deficiency Mixed hyperlipidemia Diabetes mellitus Surgical History History of ankle surgery Patient has history of right ankle injury at work in the [employer] and subsequent surgery, but does not know what was done Family History Other Diabetes Social History Smoking and tobacco/nicotine status: current every day tobacco/nicotine user (tobacco use chews smokeless tobacco) smokeless tobacco Smokeless tobacco user: snuff Household members: significant other Housing: House Marital status: Current occupation: [employer] Current occupational exposures/hazards: Yes (lead and othe exposures) Data Anesthesia 06/14/25 08:07 06/14/25 12:20 Short CBC 06/14/25 Range/Units 08:07 WBC 14.83 H (3.29-11.43) 10^3/uL Hgb 17.40 H (11.27-16.99) g/dL Hct 49.8 (37-53) % MCV 90.4 (82-101) fl Plt Count 222 (157-399) 10^3/cmm Neut % (Auto) 82.8 % Neut # (Auto) 12.28 H (1.8-7.7) 10^3/uL BMP 06/14/25 06/14/25 08:07 12:20 Sodium 124 L 130 L Potassium 4.0 3.6 Chloride 79 L 91 L Carbon Dioxide 23 22 BUN 23 21 Creatinine 0.9 0.9 Glucose 354 H 231 H Calcium 10.0 8.3 L Cardiac Enzymes 06/14/25 Range/Units 08:07 Creatine Kinase 540 H* (39-308) U/L Liver Function 06/14/25 Range/Units 08:07 Total Bilirubin 1.0 (0.15-1.2) mg/dL AST 39 (0-40) U/L ALT 25 (0-41) U/L Alkaline Phosphatase 113 (40-130) U/L Albumin 3.7 (3.5-5.2) g/dL Urine 06/14/25 Range/Units 07:55 Urine Color Yellow (Yellow) Urine Appearance Clear (CLEAR) Urine pH 5.5 (5-7) Ur Specific Vesper 1.035 H (1.005-1.030) Urine Protein 2+ A (Negative) Urine Glucose (UA) 3+ H (Normal) Urine Ketones 1+ H (Negative) Urine Nitrate Negative (Negative) Urine Bilirubin Negative (Negative) Ur Leukocyte Esterase Negative (Negative) Urine RBC 0-2 (0-2) /hpf Urine WBC 0-5 (0-5) /hpf ABG 06/14/25 09:32 Specimen Type Arterial Sample Site Radial, right ABG pH 7.45 ABG pCO2 32.1 L ABG pO2 78.6 L ABG PO2/FiO2 Ratio 374 ABG HCO3 22.5 ABG O2 Saturation 96.8 ABG Base Excess -0.5 A-a O2 Gradient 4.0 L O2 Delivery Device Room air FiO2 21.0 [facility] 06/14/25 12:18 Blood Culture - Preliminary Blood SPECIMEN COLLECTED 06/14/25 12:20 Blood Culture - Preliminary Blood SPECIMEN COLLECTED
[2025-06-14] MEDS: BUPivacaine 0.25% INJ 10 mL INJECTION (16:14)
[2025-06-14] MEDS: lidocaine-epi 1% 20 mL INJ 10 ML INJECTION (16:14)
[2025-06-14 17:49] LABS: Thyroid Stimulating Hormone 0.73 uIU/mL (0.27-4.20)
--- NOTE | 2025-06-14 19:54 | PM.OP ---
Operative Report Date of procedure: June 14, 2025 Pre-op diagnosis: Acute cholecystitis Post-op diagnosis: Acute gangrenous cholecystitis, intra-abdominal abscess, peritonitis Post-op findings: The gallbladder was extremely inflamed, was creating a large phlegmon with omentum and the duodenum. There was purulent fluid in the Morison's pouch and right paracolic gutter. There was changes suggesting peritonitis in the right upper quadrant. The gallbladder wall had patches of necrosis, the posterior wall of the gallbladder was necrotic and there were small abscess cavities between the gallbladder wall and liver, there was severe inflammation of the hepatocystic triangle making extremely challenging the dissection Procedure done: Laparoscopic cholecystectomy (modifier 22) Specimens removed/disposition: Gallbladder and contents, peritoneal fluid for culture Surgeon: Harpreet Kam MD Gre[employer]ack Worker: GONZALES OR STaff Estimated blood loss: 20 Complications: none apparent Brief History: 64-year-old male who presented with acute cholecystitis and DKA. After initial resuscitation we decided to proceed to the OR for laparoscopic possible open cholecystectomy. Procedure: Patient was brought into the OR. General anesthesia was given. The abdomen was prepped and draped in the usual sterile fashion. A timeout was conducted. The abdomen was accessed via a 5 mm trocar in the left upper quadrant using an Optiview technique, initial pneumoperitoneum was obtained and no evidence of visceral injury during entry was noted. A 12 mm trocar was placed in the supraumbilical location under direct visualization, additional 5 mm trocars were placed in the right flank right upper quadrant and epigastrium under direct visualization. Upon initial inspection of the right upper quadrant there was evidence of free purulent fluid in the Morison's pouch as well as in the right paracolic gutter this was suctioned and sent for culture. There was a phlegmon between the omentum and duodenum and gallbladder, I carefully took down the this phlegmon with blunt dissection. The gallbladder had patches of necrosis and was extremely inflamed making grasping difficult. I decompressed the gallbladder with a needle and after decompression I was able to grasp the gallbladder by the fundus and retracted cephalad. The infundibulum was very difficult to grasp but I manage to grasp the gallbladder in the mid body and retracted in the inferolateral direction. I then started my dissection. There was thick peritoneal rants anterior to the gallbladder. With electrocautery I opened the peritoneum anterior to the hepatocystic triangle, I carried this opening in the medial and lateral direction to the edges of the liver and then on the sides of the gallbladder for better visualization. With careful dissection I was able to create a window posterior to the critical structures between the liver and the gallbladder unfortunately the critical structures were severely inflamed and dissection at this point appeared impossible, therefore I took the decision to*my dissection from the top of the gallbladder taking out the gallbladder from the liver bed, the gallbladder was noted to be intrahepatic, there were several small abscess cavities between the gallbladder wall and the liver on the posterior aspect of the gallbladder. Once the gallbladder was completely liberated from the liver I decided to transect the gallbladder at the level of the infundibulum of the gallbladder due to severe inflammation on the hepatocystic triangle, the gallbladder was opened up at this level and transected all the stones were removed from the inside of the gallbladder. Once the gallbladder was transected I was able to grasp it better and with careful dissection I was able to then divide the cystic artery and the cystic duct. This were the only 2 structures entering the distal remanent of the gallbladder. The cystic duct and artery were double clipped distally and single clipped proximally and transected. The distal remanent of the gallbladder was completely liberated. I then proceeded to retrieve the specimen using an Endo Catch bag through the umbilical trocar site. Since some stones spilled during the procedure I then spent additional time irrigating the liver bed and the Morison's pouch to make sure that no retained stones remain. The liver bed appeared hemostatic the clips appear in good position. Due to the amount of inflammation and purulence noted on initial laparoscopy decided to pull the drain. The drain was placed in the Morison pouch and delivered through the right flank trocar. The drain was fixed with #2-0 nylon to the skin. The right upper quadrant and the pelvis were irrigated with profuse amount of saline and suction. The umbilical trocar was removed and the umbilical trocar site was closed with a Keith-Miki suture passer under direct visualization using a 0 Vicryl. The epigastrium and right upper quadrant trocars were removed under direct visualization the left upper quadrant trocar was used to evacuate the pneumoperitoneum and subsequently removed. Hemostasis was achieved in all the wounds. All the wounds were irrigated. Local anesthesia was infiltrated and the wounds were closed using jarett. At the end of the procedure all counts were correct, the patient tolerated well the procedure was transferred to the PACU in stable condition. Due to the technical complexity of this case he will require all my expertise as well as increased procedural time to be completed.
--- NOTE | 2025-06-14 20:59 | PC.NURSE ---
2049 pt taken to floor rm 270. bp 147/81 p=90 sat= 94\5 on 2 liters of oxygen temp 98.5 resp= 17. \no complaints of pain.
--- NOTE | 2025-06-14 21:14 | ECG_ITS ---
Played Test Date: 2025-06-14 Pat Name: Aime Leonard Department: Room: 270 Gender: Male Surgical Services Coordinator: : 1960 Requested By: Don Funk Order Number: [id number] Reading MD: NATALEE METZGER Measurements Intervals [place] Rate: 89 P: 58 MS: 218 QRS: 20 QRSD: 94 T: 32 QT: 388 QTc: 474 Interpretive Statements SINUS RHYTHM WITH FIRST DEGREE AV BLOCK WITH OCCASIONAL SUPRAVENTRICULAR PREMATURE COMPLEXES LOW QRS VOLTAGE IN PRECORDIAL LEADS [QRS DEFLECTION < 1.0 mV IN CHEST LEADS] Compared to ECG 06/14/2025 12:02:20 First degree AV block now present Atrial fibrillation no longer present Electronically Signed On 06-15-2025 21:20:25 CDT by NATALEE METZGER [email or web address] [id number]
[2025-06-14] MEDS: acetaminophen 1,000 MG/100 ML PIGGYBACK 400 MG IV (21:49)
[2025-06-15] VITALS (8 sets, daily range): BP systolic 120–129; BP diastolic 66–73; PULSE 60–90; RESP 15–17; TEMP 36.6–37.6; O2SAT 94–95
[2025-06-15 05:54] LABS: Hematocrit 39.6 % (37-53); Hemoglobin 13.40 g/dL (11.27-16.99); Mean Corpuscular HGB Conc 33.8 g/dL (30-55); Mean Corpuscular Hemoglobin 31.4 pg (27-33); Mean Corpuscular Volume 92.7 fl (82-101); Nucleated Red Blood Cells % 0 %; Platelet Count 197 10^3/cmm (157-399); Red Blood Count 4.27 10^6/uL (3.85-5.65); White Blood Count 10.79 10^3/uL (3.29-11.43)
[2025-06-15] MEDS: piperacillin-tazobactam 3.375 GM in sodium chloride 0.9% (plus) 50 ML IV ×3 (06:03→22:39)
[2025-06-15 06:09] LABS: Alanine Aminotransferase 69 U/L (0-41); Albumin Level 2.7 g/dL (3.5-5.2); Alkaline Phosphatase 66 U/L (40-130); Anion Gap 17.1 (5-19); Aspartate Amino Transferase 88 U/L (0-40); Blood Urea Nitrogen 23 mg/dL (8-23); Calcium 7.7 mg/dL (8.5-10.5); Carbon Dioxide 19 mmol/L (22-29); Chloride 98 mmol/L (98-107); Creatinine Clr Calc Pharmacy 113.1563; Globulin 2.3 g/dL (1.3-4.6); Glucose 218 mg/dL (65-115); Osmolality Calculated 280 mOsm/kg (285-295); Potassium 4.1 mmol/L (3.5-5.1); Sodium 130 mmol/L (136-145); Total Protein 5.0 g/dL (6.6-8.7)
[2025-06-15 08:37] LABS: Estmated Average Glucose 214; Hemoglobin A1C 9.1 % (4.0-6.0)
[2025-06-15] MEDS: insulin glargine 100 units/1 mL 10 UNIT SUBCUT (08:50)
--- NOTE | 2025-06-15 09:52 | P.PN_ITS ---
Subjective 2 Subjective: Postoperative day 1 status post laparoscopic cholecystectomy. Patient doing well feeling fine this morning no significant abdominal pain has been able to eat. Vitals/I&O/Wt Last Vital Signs Temp 98.0 F 06/15/25 07:21 Pulse 90 06/15/25 07:21 Resp 15 06/15/25 07:21 BP 120/71 06/15/25 07:21 Pulse Ox 95 06/15/25 07:21 O2 Del Method Nasal Cannula 06/15/25 07:21 O2 Flow Rate 1 06/15/25 01:55 06/14/25 06/15/25 06/15/25 22:59 06:59 14:59 Intake Total 1410 / 4460 250 / 4710 Output Total 195 / 195 1370 / 1565 Balance 1215 / 4265 -1120 / 3145 Weight last 48 hrs Weight 253 lb 14.4 oz Weight 254 lb Weight 227 lb Physical Exam 2 GI: OTHER: Abdomen is soft, appropriately tender, MELLISSA drain with serosanguineous output Data 06/15/25 05:27 06/15/25 05:27 Micro: Microbiology 06/14/25 12:18 Blood Culture - Preliminary Blood SPECIMEN COLLECTED 06/14/25 12:20 Blood Culture - Preliminary Blood SPECIMEN COLLECTED A&P Assessment and plan 1. Acute cholecystitis: 2. DKA (diabetic ketoacidosis): Plan: Patient is showing excellent progression, his vital signs are normal now and he is white count down trended to 10. Other biliary testing appears to be unremarkable with only mild elevation of AST and ALT which expected in the immediate postoperative period. Patient will require additional 24 to 48 hours of hospital stay for IV antibiotics as he did have an intra-abdominal abscess during initial evaluation. This will be to decrease the likelihood of recurrent abscess formation or reaccumulation in the setting of a patient who has an immunocompromise immune system due to diabetes. Patient shows understanding agrees with the plan. Will start ambulation will give him an incentive spirometer. All other management per primary PDMP PDMP Reviewed: Not Reviewed Attestations 2 Medical Necessity Statement*: Per medical team Coding Level of Care Code Acute Code for g Fwd Diagnoses Acute cholecystitis K81.0 DKA (diabetic ketoacidosis) E11.10
--- NOTE | 2025-06-15 12:14 | PC.NURSE ---
pts bs 258, sliding scale protocol would be 8units, dr long verbal order to give 5units.
[2025-06-15 12:53] LABS: Alanine Aminotransferase 81 U/L (0-41); Albumin Level 2.6 g/dL (3.5-5.2); Alkaline Phosphatase 76 U/L (40-130); Aspartate Amino Transferase 95 U/L (0-40); Blood Urea Nitrogen 25 mg/dL (8-23); Calcium 8.2 mg/dL (8.5-10.5); Carbon Dioxide 20 mmol/L (22-29); Chloride 96 mmol/L (98-107); Creatinine Clr Calc Pharmacy 113.1563; Globulin 3.5 g/dL (1.3-4.6); Glucose 259 mg/dL (65-115); Osmolality Calculated 277 mOsm/kg (285-295); Sodium 127 mmol/L (136-145); Total Protein 6.1 g/dL (6.6-8.7)
[2025-06-15 12:57] LABS: Anion Gap 14.8 (5-19); Potassium 3.8 mmol/L (3.5-5.1)
--- NOTE | 2025-06-15 13:09 | P.PN_ITS ---
Subjective 2 Subjective: Patient was seen this morning, currently alert to person, to place, to time, follows all commands, no bowel movement, no significant abdominal pain, no fevers, no chills Vitals/I&O/Wt Last Vital Signs Temp 98.6 F 06/15/25 11:42 Pulse 73 06/15/25 11:42 Resp 15 06/15/25 11:42 BP 120/69 06/15/25 11:42 Pulse Ox 94 06/15/25 11:42 O2 Del Method Nasal Cannula 06/15/25 11:42 O2 Flow Rate 1 06/15/25 01:55 06/14/25 06/15/25 06/15/25 22:59 06:59 14:59 Intake Total 1410 / 4460 250 / 4710 360 / 360 Output Total 195 / 195 1370 / 1565 Balance 1215 / 4265 -1120 / 3145 360 / 360 Weight last 48 hrs Weight 115.167 kg Weight 115.212 kg Weight 102.965 kg Physical Exam 2 Const: COMMON NORMALS: no acute distress and patient oriented x3 Resp: COMMON NORMALS: normal respiratory effort, No retractions, No use of accessory muscles and clear to auscultation bilaterally AUSCULTATION: clear to auscultation bilaterally Cardio: COMMON NORMALS: regular rate, regular rhythm, S1 normal heart sound present and S2 normal heart sound present RATE: regular rate RHYTHM: r egular rhythm HEART SOUNDS: S1 normal heart sound present and S2 normal heart sound present GI: OTHER: Abdomen soft, slightly distended, good bowel sounds, no guarding, no rebound, rigidity, MELLISSA drain in place, surgical site looks clean and dry Extremity: COMMON NORMALS: no calf tenderness and no pedal edema Neuro: COMMON NORMALS: patient oriented x3 Psych: COMMON NORMALS: mental status grossly normal Data 06/15/25 05:27 06/15/25 12:06 Micro: Microbiology 06/14/25 12:18 Blood Culture - Preliminary Blood NEGATIVE TO DATE 06/14/25 12:20 Blood Culture - Preliminary Blood NEGATIVE TO DATE 06/14/25 16:30 Gram Stain - Final Peritoneal Fluid A&P Assessment and plan 1. Acute cholecystitis: 2. DKA (diabetic ketoacidosis): 3. Diabetes mellitus: 4. Hypoxia: Plan: Acute cholecystitis CT/CT abdomen pelvis w con* [id number] IMPRESSION: 1. Acute inflammatory process centered at the gallbladder. Suspect acute cholecystitis. There is no intrahepatic duct dilatation. 2. The inflammatory process centered around the gallbladder extends across the anterior mesentery but also inferiorly along the ascending colon. No abscess. 3. Negative appendix. 4. Tiny amount of free fluid in the pelvis. 5. Urinary bladder is just slightly overdistended. 6. Small hiatal hernia. Gallbladder ultrasound US/US gall bladder [id number] IMPRESSION: 1. Cholelithiasis with wall thickening. Differential includes acute cholecystitis and hepatocellular disease. 2. Hepatomegaly and hepatic steatosis. 3. Normal common bile duct. Status post laparoscopic cholecystectomy, status post postop day 1 Post-op findings: The gallbladder was extremely inflamed, was creating a large phlegmon with omentum and the duodenum. There was purulent fluid in the Morison's pouch and right paracolic gutter. There was changes suggesting peritonitis in the right upper quadrant. The gallbladder wall had patches of necrosis, the posterior wall of the gallbladder was necrotic and there were small abscess cavities between the gallbladder wall and liver, there was severe inflammation of the hepatocystic triangle making extremely challenging the dissection Plan - MELLISSA drain in place - Serial abdominal exams - GI soft diet - IV fluids - IV Zosyn - Will monitor clinically - Full code - SCDs for DVT prophylaxis Type 2 diabetes mellitus, A1c 9.1, anion gap 14.8 - With hyperglycemia - Lantus 10 units subcut daily - Moderate dose sliding scale - Gentle IV hydration Rhabdomyolysis: IV fluids Tobacco (chewing) use : Uses chewing tobacco; does not smoke. - Nicotine replacement as needed. PDMP PDMP Reviewed: Not Reviewed Attestations 2 Medical Necessity Statement*: Patient requires hospitalization for hyperglycemia, acute cholecystitis Diagnoses Acute cholecystitis K81.0 DKA (diabetic ketoacidosis) E11.10 Diabetes mellitus E11.9 Hypoxia R09.02
--- NOTE | 2025-06-15 17:13 | USCV_ITS ---
Aime Leonard Age: 64 Gender: M : 1960 Exam Date: 06/15/2025 07:46 Ordering Phys: Don Funk MD Technologist: Pietro Mcleod Exam Location: [facility] [place] Indication: new afib BP: 121 / 73 HR: 80 Rhythm: Sinus Technical Quality: Adequate MEASUREMENTS (Male / Female) Normal Values 2D ECHO LV Diastolic Diameter PLAX 4.6 cm 4.2 - 5.9 / 3.9 - 5.3 cm IVS Diastolic Thickness 0.9 cm 0.6 - 1.0 / 0.6 - 0.9 cm IVS Systolic Thickness 1.5 cm LVPW Diastolic Thickness 0.8 cm 0.6 - 1.0 / 0.6 - 0.9 cm LVPW Systolic Thickness 1.1 cm LVOT Diameter 2.0 cm LV Ejection Fraction 2D Teich 64.7 % LV Ejection Fraction MOD 4C 53.7 % LV Ejection Fraction MOD 2C 58.5 % LV Ejection Fraction 2C AL 60.9 % LA Diameter 3.3 cm RA Systolic Volume 4C AL 24.3 ml RA Systolic Volume 4C MOD 23.7 ml LA Sys Volume AL 43.0 cm cubed LA Sys Volume Index AL 17.4 cm cubed/m squared Aorta at Sinotubular Diameter 2.7 cm IVC Diameter 1.7 cm M-MODE LA Ao Ratio MM 0.9 AV Cusp Separation MM 2.1 cm DOPPLER AV Peak Velocity 115.0 cm/s LVOT Peak Velocity 98.0 cm/s AV Area Cont Eq vti 2.3 cm squared AV Area Cont Eq pk 2.8 cm squared MV Peak Velocity 100.0 cm/s MV Area PHT 6.4 cm squared Mitral E to A Ratio 1.0 TR Peak Velocity 164.0 cm/s TR Peak Gradient 10.8 mmHg TR Mean Velocity 137.0 cm/s TR Mean Gradient 7.7 mmHg TR Velocity Time Integral 35.8 cm PV Peak Velocity 66.0 cm/s RV Ejection Time 0.2 s FINDINGS Left Ventricle Normal left ventricular size and systolic function. Left ventricular ejection fraction is 58%. Mild concentric left ventricular hypertrophy. Normal left ventricular diastolic function. Right Ventricle Normal right ventricular size and systolic function. Right Atrium Normal right atrial size. Left Atrium Normal left atrial size. IA Septum Normal appearance of the interatrial septum. Mitral Valve Normal mitral valve structure. No mitral valve stenosis or regurgitation. Aortic Valve Normal aortic valve structure. No aortic valve stenosis or regurgitation. Tricuspid Valve Trace tricuspid valve regurgitation. Normal pulmonary pressure. Pulmonic Valve Normal pulmonic valve structure. No pulmonic valve stenosis or regurgitation. Pericardium No pericardial effusion. Aorta Normal diameter of the aortic root and ascending thoracic aorta. IVC Normal IVC diameter. CONCLUSIONS Normal left ventricular size, systolic function and ejection fraction of 58%. Mild concentric left ventricular hypertrophy. Normal right ventricular size and systolic function. No significant valvular abnormalities. Rakesh Fuller MD, FACC (Electronically Signed) Final Date: 15 June 2025 19:33 S
[2025-06-15] MEDS: perflutren protein-a microsphr 0.22 mg/mL SDV 3 mL IV (18:37)
[2025-06-16] VITALS (7 sets, daily range): BP systolic 121–142; BP diastolic 68–79; PULSE 70–84; RESP 16–17; TEMP 36.5–36.9; O2SAT 95–97
[2025-06-16 05:08] LABS: Hematocrit 37.6 % (37-53); Hemoglobin 12.40 g/dL (11.27-16.99); Mean Corpuscular HGB Conc 33.0 g/dL (30-55); Mean Corpuscular Hemoglobin 31.1 pg (27-33); Mean Corpuscular Volume 94.2 fl (82-101); Nucleated Red Blood Cells % 0 %; Platelet Count 186 10^3/cmm (157-399); Red Blood Count 3.99 10^6/uL (3.85-5.65); White Blood Count 10.20 10^3/uL (3.29-11.43)
[2025-06-16 05:24] LABS: Alanine Aminotransferase 59 U/L (0-41); Albumin Level 2.4 g/dL (3.5-5.2); Alkaline Phosphatase 72 U/L (40-130); Anion Gap 12.5 (5-19); Aspartate Amino Transferase 38 U/L (0-40); Blood Urea Nitrogen 23 mg/dL (8-23); Calcium 8.1 mg/dL (8.5-10.5); Carbon Dioxide 24 mmol/L (22-29); Chloride 99 mmol/L (98-107); Creatinine Clr Calc Pharmacy 113.1563; Globulin 2.9 g/dL (1.3-4.6); Glucose 213 mg/dL (65-115); Osmolality Calculated 284 mOsm/kg (285-295); Potassium 3.5 mmol/L (3.5-5.1); Sodium 132 mmol/L (136-145); Total Protein 5.3 g/dL (6.6-8.7)
[2025-06-16] MEDS: piperacillin-tazobactam 3.375 GM in sodium chloride 0.9% (plus) 50 ML IV ×3 (05:31→21:56)
--- NOTE | 2025-06-16 07:59 | PM.PN ---
Subjective Subjective: Postoperative day 2 status post laparoscopic ostectomy for acute cholecystitis with intra-Operative finding of intra-abdominal abscess and peritonitis. Patient doing very well no significant abdominal pain stable vital signs normal labs tolerating diet. Vitals/I&O/Wt Last Vital Signs Temp 98.4 F 06/16/25 04:00 Pulse 70 06/16/25 05:50 Resp 17 06/16/25 04:00 BP 128/78 06/16/25 04:00 Pulse Ox 96 06/16/25 04:00 O2 Del Method Room Air 06/15/25 16:00 O2 Flow Rate 1 06/15/25 01:55 06/15/25 06/16/25 06/16/25 22:59 05:59 14:59 Intake Total 890 / 1540 1003.75 / 2543.75 Output Total 655 / 655 450 / 1105 Balance 235 / 885 553.75 / 1438.75 Weight last 48 hrs Weight 253 lb Weight 253 lb 14.4 oz Weight 254 lb Physical Exam Narrative: Abdominal examination is benign surgical incisions covered with dressings and MELLISSA drain with serosanguineous output Data 06/16/25 04:49 06/16/25 04:49 Micro: Microbiology 06/14/25 12:18 Blood Culture - Preliminary Blood NEGATIVE TO DATE 06/14/25 12:20 Blood Culture - Preliminary Blood NEGATIVE TO DATE 06/14/25 16:30 Gram Stain - Final Peritoneal Fluid A&P Assessment and plan 1. Acute cholecystitis: Plan: Patient showing very good progression. We will discontinue IV fluids, encourage ambulation, we will keep the patient in the hospital for additional 24 hours for IV antibiotics due to the finding of peritonitis and intra-abdominal abscess. Tomorrow he will be able to transition to the outpatient setting with p.o. antibiotics. All other management per medical team. Of note glucose appears to be better controlled today. PDMP PDMP Reviewed: Not Reviewed Attestations Medical Necessity Statement*: Per medical team Coding Level of Care Code Acute Code for [facility] Fwd Diagnoses Acute cholecystitis K81.0
[2025-06-16] MEDS: insulin glargine 100 units/1 mL 10 UNIT SUBCUT (08:01)
--- NOTE | 2025-06-16 13:10 | P.PN_ITS ---
Subjective 2 Subjective: Patient was seen this morning, is alert oriented x 3, following all meds, no abdominal pain, no nausea, no vomiting, passing gas from below, has not had a bowel movement Vitals/I&O/Wt Last Vital Signs Temp 97.7 F 06/16/25 11:08 Pulse 77 06/16/25 11:08 Resp 17 06/16/25 11:08 BP 132/79 06/16/25 11:08 Pulse Ox 96 06/16/25 11:08 O2 Del Method Room Air 06/16/25 11:08 O2 Flow Rate 1 06/15/25 01:55 06/15/25 06/16/25 06/16/25 22:59 05:59 14:59 Intake Total 890 / 1540 1003.75 / 2543.75 1558.75 / 1558.75 Output Total 655 / 655 450 / 1105 325 / 325 Balance 235 / 885 553.75 / 1438.75 1233.75 / 1233.75 Weight last 48 hrs Weight 114.759 kg Weight 115.167 kg Weight 115.212 kg Physical Exam 2 Const: COMMON NORMALS: no acute distress and patient oriented x3 Resp: COMMON NORMALS: normal respiratory effort, No retractions, No use of accessory muscles and clear to auscultation bilaterally AUSCULTATION: clear to auscultation bilaterally Cardio: COMMON NORMALS: regular rate, regular rhythm, S1 normal heart sound present and S2 normal heart sound present RATE: regular rate RHYTHM: r egular rhythm HEART SOUNDS: S1 normal heart sound present and S2 normal heart sound present GI: OTHER: Abdomen soft, slightly distended, good bowel sounds, no guarding, no rebound, or rigidity, MELLISSA drain in place Extremity: COMMON NORMALS: no calf tenderness and no pedal edema Neuro: COMMON NORMALS: patient oriented x3 Psych: COMMON NORMALS: mental status grossly normal Data 06/16/25 04:49 06/16/25 04:49 Micro: Microbiology 06/14/25 16:30 Gram Stain - Final Peritoneal Fluid Body Fluid Culture - Preliminary Gram Negative Rods 06/14/25 12:18 Blood Culture - Preliminary Blood NEGATIVE TO DATE 06/14/25 12:20 Blood Culture - Preliminary Blood NEGATIVE TO DATE A&P Assessment and plan 1. Acute cholecystitis: 2. DKA (diabetic ketoacidosis): 3. Diabetes mellitus: 4. Hypoxia: Plan: Acute cholecystitis CT/CT abdomen pelvis w con* [id number] IMPRESSION: 1. Acute inflammatory process centered at the gallbladder. Suspect acute cholecystitis. There is no intrahepatic duct dilatation. 2. The inflammatory process centered around the gallbladder extends across the anterior mesentery but also inferiorly along the ascending colon. No abscess. 3. Negative appendix. 4. Tiny amount of free fluid in the pelvis. 5. Urinary bladder is just slightly overdistended. 6. Small hiatal hernia. Gallbladder ultrasound US/US gall bladder [id number] IMPRESSION: 1. Cholelithiasis with wall thickening. Differential includes acute cholecystitis and hepatocellular disease. 2. Hepatomegaly and hepatic steatosis. 3. Normal common bile duct. Status post laparoscopic cholecystectomy, status post postop day 1 Post-op findings: The gallbladder was extremely inflamed, was creating a large phlegmon with omentum and the duodenum. There was purulent fluid in the Morison's pouch and right paracolic gutter. There was changes suggesting peritonitis in the right upper quadrant. The gallbladder wall had patches of necrosis, the posterior wall of the gallbladder was necrotic and there were small abscess cavities between the gallbladder wall and liver, there was severe inflammation of the hepatocystic triangle making extremely challenging the dissection Plan - MELLISSA drain in place -Cultures pending - Serial abdominal exams - GI soft diet - IV fluids discontinued - IV Zosyn - Will monitor clinically - Full code - SCDs for DVT prophylaxis, start Lovenox Type 2 diabetes mellitus, A1c 9.1, anion gap 14.8 - With hyperglycemia - Lantus 10 units subcut daily - Moderate dose sliding scale - Gentle IV hydration completed Rhabdomyolysis: IV fluids Tobacco (chewing) use : Uses chewing tobacco; does not smoke. - Nicotine replacement as needed. PDMP PDMP Reviewed: Not Reviewed Attestations 2 Medical Necessity Statement*: Patient requires hospitalization for acute cholecystitis, status post surgical intervention Diagnoses Acute cholecystitis K81.0 DKA (diabetic ketoacidosis) E11.10 Diabetes mellitus E11.9 Hypoxia R09.02
[2025-06-16] MEDS: polyethylene glycol 3350 Pkt 17 gm PO (17:12)
--- NOTE | 2025-06-16 20:09 | PC.NURSE ---
Patient is refusing to wear telemetry. railcar brake operator Cipriano advised patient of importance of wearing roustabout pusher, patient again refused. Dr. Porter made aware of situation.
[2025-06-17] VITALS: BP 162/73; PULSE 76; RESP 15; TEMP 36.5; O2SAT 96
[2025-06-17 04:00] VITALS: BP 146/71; PULSE 73; RESP 16; TEMP 36.4; O2SAT 95
[2025-06-17] MEDS: piperacillin-tazobactam 3.375 GM in sodium chloride 0.9% (plus) 50 ML IV (05:32)
[2025-06-17 06:03] LABS: Hematocrit 39.3 % (37-53); Hemoglobin 12.90 g/dL (11.27-16.99); Mean Corpuscular HGB Conc 32.8 g/dL (30-55); Mean Corpuscular Hemoglobin 30.9 pg (27-33); Mean Corpuscular Volume 94.0 fl (82-101); Nucleated Red Blood Cells % 0 %; Platelet Count 224 10^3/cmm (157-399); Red Blood Count 4.18 10^6/uL (3.85-5.65); White Blood Count 9.38 10^3/uL (3.29-11.43)
[2025-06-17 06:22] LABS: Alanine Aminotransferase 54 U/L (0-41); Albumin Level 2.7 g/dL (3.5-5.2); Alkaline Phosphatase 74 U/L (40-130); Anion Gap 12.6 (5-19); Aspartate Amino Transferase 30 U/L (0-40); Blood Urea Nitrogen 19 mg/dL (8-23); Calcium 8.2 mg/dL (8.5-10.5); Carbon Dioxide 24 mmol/L (22-29); Chloride 101 mmol/L (98-107); Creatinine Clr Calc Pharmacy 127.0799; Globulin 3.3 g/dL (1.3-4.6); Glucose 154 mg/dL (65-115); Osmolality Calculated 283 mOsm/kg (285-295); Potassium 3.6 mmol/L (3.5-5.1); Sodium 134 mmol/L (136-145); Total Protein 6.0 g/dL (6.6-8.7)
[2025-06-17 06:30] LABS: Slide Review Slide Review Perform
--- NOTE | 2025-06-17 07:01 | P.PN_ITS ---
Subjective 2 Subjective: Patient is now postoperative day 3 status post laparoscopic cholecystectomy for acute necrotizing cholecystitis with intraoperative findings of intra-abdominal abscess. Patient is doing very well tolerating diet has passed gas but has not had a bowel movement yet he did have MiraLAX yesterday. Vitals are stable labs laboratory workup is unremarkable. Vitals/I&O/Wt Last Vital Signs Temp 97.6 F 06/17/25 04:00 Pulse 73 06/17/25 04:00 Resp 16 06/17/25 04:00 BP 146/71 06/17/25 04:00 Pulse Ox 95 06/17/25 04:00 O2 Del Method Room Air 06/16/25 20:00 O2 Flow Rate 1 06/15/25 01:55 06/16/25 06/17/25 06/17/25 22:59 06:59 14:59 Intake Total 410 / 1968.75 50 / 2018.75 Output Total 875 / 1250 920 / 2170 Balance -465 / 718.75 -870 / -151.25 Weight last 48 hrs Weight 255 lb 12.8 oz Weight 253 lb Physical Exam 2 GI: OTHER: Benign abdominal exam abdomen is soft nontender nondistended surgical incisions are covered with dressing the MELLISSA drain was removed today the serosanguineous output was noted. Data 06/17/25 05:18 06/17/25 05:18 Micro: Microbiology 06/14/25 16:30 Gram Stain - Final Peritoneal Fluid Body Fluid Culture - Preliminary Gram Negative Rods A&P Assessment and plan 1. Acute cholecystitis: 2. DKA (diabetic ketoacidosis): Plan: Excellent progression after laparoscopic cholecystectomy. Patient has now completed 72 hours of IV antibiotics. He is cleared for discharge from the surgical standpoint. Since he has not had a bowel movement yet I have increased his MiraLAX to once daily and I added senna for today. All other management per medical team. Patient will follow-up with us as outpatient in 2 weeks. PDMP PDMP Reviewed: Not Reviewed Attestations 2 Medical Necessity Statement*: Per medical team Coding Level of Care Code Acute Code for [facility] Fwd Diagnoses Acute cholecystitis K81.0 DKA (diabetic ketoacidosis) E11.10
[2025-06-17 07:06] VITALS: BP 131/79; PULSE 71; RESP 16; TEMP 36.4; O2SAT 94
[2025-06-17] MEDS: insulin glargine 100 units/1 mL 10 UNIT SUBCUT (07:32)
[2025-06-17] MEDS: polyethylene glycol 3350 Pkt 17 gm PO (07:32)
--- NOTE | 2025-06-17 09:24 | PC.CHAP ---
Pastoral Care Encounter/Spiritual Assessment Type of Contact [] Declined site planner visit [] Patient/Family/Request visit [] Outpatient visit [] Follow-up visit [] Physician referral [] Code/Alert [x] Routine visit [] Staff referral [] Actively dying [] Patient sleeping [] Family support [] [] Out of room [] Palliative care [] [x] Receiving care in room [] Pre-surgical visit [] Trauma [] Long length of stay [] ICU visit [] Other: Relational/Emotional Strength [] Patient feels connected with others/family/visitors/staff [] Distress [] Loneliness/isolation [] Abandonment Spirituality of Patient [] Person of Silvia [] Attends Shinto of their Silvia [] Believes in Prayer [] Reads Bible or Scientology materials [] There are Spiritual issues to be addressed Bookkeeper Assistant Interventions [x] Prayer [] Active listening [] Non-anxious presence [] Spiritual/emotional support [] Crisis/trauma care [] Spiritual counseling [] Bereavement support [] Provided bereavement packet [] Provided Bible/devotional materials [] Provided toy/stuffed animal, coloring book to patient or family member [] Provided Communion [] Anointing/[place] [] Salvation [] Completed spiritual assessment [] Other: Impact on Illness or Injury [] Angry [] Fearful [] Anxious [] Often cries [] Exhaustion [] Unable to work [] Unable to attend jew [] Unable to walk/stand [] Unable to read [] Unable to drive [] Unable to eat/drink [] Unable to sleep [] Unable to be with family [] Patient intubated [] Other: Summary Time spent with patient
[2025-06-17 11:19] VITALS: BP 135/76; PULSE 76; RESP 17; TEMP 36.8; O2SAT 95
--- NOTE | 2025-06-17 12:10 | PM.DCS ---
Discharge Providers Date of Admission: 06/14/25 12:18 Date of Discharge: June 17, 2025 Attending Provider at Admission: Don Funk Attending Provider at Discharge: Deandre Morales MD Primary Care Provider: JOE Merida Diagnoses at Discharge Discharge Diagnosis 1. Acute cholecystitis: 2. DKA (diabetic ketoacidosis): Reason for Visit Reason for Visit: abd pain Hospital Course Hospital Course Aime Leonard is a 64 year old gentleman with a history of diabetes mellitus, hyperlipidemia, who presents [facility] for abdominal pain Acute cholecystitis CT/CT abdomen pelvis w con* [id number] IMPRESSION: 1. Acute inflammatory process centered at the gallbladder. Suspect acute cholecystitis. There is no intrahepatic duct dilatation. 2. The inflammatory process centered around the gallbladder extends across the anterior mesentery but also inferiorly along the ascending colon. No abscess. 3. Negative appendix. 4. Tiny amount of free fluid in the pelvis. 5. Urinary bladder is just slightly overdistended. 6. Small hiatal hernia. Gallbladder ultrasound US/US gall bladder [id number] IMPRESSION: 1. Cholelithiasis with wall thickening. Differential includes acute cholecystitis and hepatocellular disease. 2. Hepatomegaly and hepatic steatosis. 3. Normal common bile duct. Status post laparoscopic cholecystectomy, status post postop day 1 Post-op findings: The gallbladder was extremely inflamed, was creating a large phlegmon with omentum and the duodenum. There was purulent fluid in the Morison's pouch and right paracolic gutter. There was changes suggesting peritonitis in the right upper quadrant. The gallbladder wall had patches of necrosis, the posterior wall of the gallbladder was necrotic and there were small abscess cavities between the gallbladder wall and liver, there was severe inflammation of the hepatocystic triangle making extremely challenging the dissection - Patient was managed as inpatient, received IV antibiotics, IV fluids, clinically monitored - Remained afebrile, MELLISSA drainage serosanguineous, culture showing Klebsiella pneumonia sensitive to penicillin -Patient having bowel movements, passing gas, abdomen soft/nondistended/ nontender, good bowel sounds, MELLISSA drain removed - Patient will be discharged on 2 weeks of Augmentin, - With a close follow-up with primary care and general surgery - Patient was advised if he were to have any recurrent abdominal pain or distention or lack of bowel movement or fevers or chills go to the emergency room immediately - Discussed the possibility of intra-abdominal abscesses, if any fevers or abdominal pain please immediately go to the emergency room for paroxysmal atrial fibrillation - Known history of hypertension as per patient, does have type 2 diabetes, [id number] score is 1 - Discussed risk benefits of full dose anticoagulation therapy versus aspirin - Discussed risks and benefits, including but not limited to bleeding, risk of strokes - He voiced understanding to all presenting, agreed to proceed with aspirin 81 mg daily - Discharged with close follow-up with cardiology - Discharge with event monitor - If any chest pain or palpitations go to the emergency room - If any strokelike symptoms please call [phone] General Surgery instructions: Please do not lift anything heavier than 10 pounds, for the next 4 to 6 weeks. You can walk is much as possible, this will help you recover faster. You can shower starting the day after tomorrow, let soap and water run over your wound and then pat dry. Please take your medication as indicated if you are taking opioids please do not forget to take a stool softener Warning signs: Return to the hospital if you have fever, chills, severe abdominal pain that is getting worse over time despite your pain medication or if your eyes or skin are turning yellow - Please take aspirin 81 mg daily - Please monitor blood sugars closely - Please monitor blood pressures twice daily and record them and a blood pressure log follow-up with primary care - Wear event monitor as prescribed - Follow-up with cardiology --Please monitor your blood sugars closely -Monitor your blood sugars 3 times daily as after meals -Please record your blood sugars, and a blood sugar log -For your Humalog -Please inject blood sugar after meals based on sliding scale provided -Do not inject insulin if you do not eat as hypoglycemia kills -This is a HUmalog sliding scale -Insulin sliding ?fingerstick? Insulin ?141-180?0 units/sq 181-220?2 units/sq ?221-260?4 units/sq ?261-300 6 units/sq ?301-350?8 units/sq ?351-400 10 units/sq ?401-450?12 units/sq >450? 14units/sq -If your blood sugar is greater than 500 go to the emergency room -If your blood sugar is less than 60 or at anytime you feel lightheaded or dizzy or diaphoretic or have chest palpitations check your blood sugar, and eat a hard candy or drink orange juice and go immediately to the emergency room -Remember hypoglycemia kills, so if his blood sugar is less than 60 we have to increase it by taking in a sugary meal such as a hard candy or orange juice and go to the emergency room -If you have any questions please call us where here to help Physical Exam Const: COMMON NORMALS: no acute distress and patient oriented x3 Resp: COMMON NORMALS: normal respiratory effort, No retractions, No use of accessory muscles and clear to auscultation bilaterally AUSCULTATION: clear to auscultation bilaterally Cardio: COMMON NORMALS: regular rate, regular rhythm, S1 normal heart sound present and S2 normal heart sound present RATE: regular rate RHYTHM: regular rhythm HEART SOUNDS: S1 normal heart sound present and S2 normal heart sound present GI: COMMON NORMALS: Normal to inspection, nondistended, normoactive bowel sounds present and non-tender OTHER: surgical site looks clean and dry Extremity: COMMON NORMALS: no pedal edema Neuro: COMMON NORMALS: patient oriented x3 Psych: COMMON NORMALS: mental status grossly normal Discharge Data Studies Completed and Pending Completed Studies During Hospitalization Category Date Time Status CT abdomen pelvis w con* [id number] Stat Cat Scan 06/14/25 08:33 Completed CXRP [XR chest 1V portable [id number]] Stat Exams 06/14/25 12:03 Completed CV. echo wo/w contrast [id number] Routine Ultrasound 06/15/25 17:13 Completed US gall bladder [id number] Stat Ultrasound 06/14/25 10:32 Completed Pending at discharge Category Date Time Status Blood Culture Stat Lab 06/14/25 12:18 Results Pathology: Surgical [PTH] Stat Pth 06/14/25 19:54 Received Radiology Impressions Abdomen/Pelvis CT 06/14/25 08:33 IMPRESSION: 1. Acute inflammatory process centered at the gallbladder. Suspect acute cholecystitis. There is no intrahepatic duct dilatation. 2. The inflammatory process centered around the gallbladder extends across the anterior mesentery but also inferiorly along the ascending colon. No abscess. 3. Negative appendix. 4. Tiny amount of free fluid in the pelvis. 5. Urinary bladder is just slightly overdistended. 6. Small hiatal hernia. Gallbladder Ultrasound 06/14/25 10:32 IMPRESSION: 1. Cholelithiasis with wall thickening. Differential includes acute cholecystitis and hepatocellular disease. 2. Hepatomegaly and hepatic steatosis. 3. Normal common bile duct. Chest X-Ray 06/14/25 12:03 IMPRESSION: 1. Negative chest. Laboratory Results WBC 9.38 10^3/uL (3.29-11.43) 06/17/25 05:18 RBC 4.18 10^6/uL (3.85-5.65) 06/17/25 05:18 Hgb 12.90 g/dL (11.27-16.99) 06/17/25 05:18 Hct 39.3 % (37-53) 06/17/25 05:18 MCV 94.0 fl (82-101) 06/17/25 05:18 MCH 30.9 pg (27-33) 06/17/25 05:18 MCHC 32.8 g/dL (30-55) 06/17/25 05:18 RDW 13.2 % (12.1-15.1) 06/17/25 05:18 Plt Count 224 10^3/cmm (157-399) 06/17/25 05:18 MPV 11.2 fL (7.4-10.4) H 06/17/25 05:18 Neut % (Auto) 71.0 % 06/17/25 05:18 Lymph % (Auto) 16.0 % 06/17/25 05:18 [place] % (Auto) 10.0 % 06/17/25 05:18 Eos % (Auto) 1.0 % 06/17/25 05:18 Baso % (Auto) 0.2 % 06/17/25 05:18 Neut # (Auto) 6.66 10^3/uL (1.8-7.7) 06/17/25 05:18 Lymph # (Auto) 1.5 10^3/uL (0.8-4.8) 06/17/25 05:18 [place] # (Auto) 0.9 10^3/uL (0.2-0.9) 06/17/25 05:18 Eos # (Auto) 0.1 10^3/uL (0.0-0.8) 06/17/25 05:18 Baso # (Auto) 0.0 10^3/uL (0.0-0.1) 06/17/25 05:18 Nucleated RBC % (auto) 0 % 06/17/25 05:18 Nucleated RBCs # 0.0 /100WBC 06/17/25 05:18 Specimen Type Arterial 06/14/25 09:32 Sample Site Radial, right 06/14/25 09:32 ABG pH 7.45 (7.35-7.45) 06/14/25 09:32 ABG pCO2 32.1 mmHg (35-45) L 06/14/25 09:32 ABG pO2 78.6 mmHg (80.0-100.0) L 06/14/25 09:32 ABG PO2/FiO2 Ratio 374 06/14/25 09:32 ABG HCO3 22.5 mmol/L (22-26) 06/14/25 09:32 ABG O2 Saturation 96.8 06/14/25 09:32 ABG Base Excess -0.5 mmol/L (-2.0-2.0) 06/14/25 09:32 Ranulfo Test Pos 06/14/25 09:32 A-a O2 Gradient 4.0 mmHg (5-10) L 06/14/25 09:32 Hematocrit 50.3 % (42-52) 06/14/25 09:32 Hgb O2 Saturation 95.7 % (95-100) 06/14/25 09:32 Carboxyhemoglobin 1.2 %THgb (0.4-20.1) 06/14/25 09:32 Methemoglobin < 0.0 % (0.4-1.5) L 06/14/25 09:32 Total Hemoglobin 16.4 g/dL (14-18) 06/14/25 09:32 Sodium 125.0 mmol/L (131-143) L 06/14/25 09:32 Potassium 3.6 mmol/L (3.5-5.0) 06/14/25 09:32 Glucose 283.0 mg/dL (70-115) H 06/14/25 09:32 Ionized Calcium 1.2 mmol/L (1.1-1.4) 06/14/25 09:32 O2 Delivery Device Room air 06/14/25 09:32 FiO2 21.0 % 06/14/25 09:32 [employer] Supervisor ID Monro 06/14/25 09:32 Sodium 134 mmol/L (136-145) L 06/17/25 05:18 Potassium 3.6 mmol/L (3.5-5.1) 06/17/25 05:18 Chloride 101 mmol/L (98-107) 06/17/25 05:18 Carbon Dioxide 24 mmol/L (22-29) 06/17/25 05:18 Anion Gap 12.6 (5-19) 06/17/25 05:18 BUN 19 mg/dL (8-23) 06/17/25 05:18 Creatinine 0.8 mg/dL (0.7-1.2) 06/17/25 05:18 GFR Calculation 98.0 mL/min (90-130) 06/17/25 05:18 Glucose 154 mg/dL (65-115) H 06/17/25 05:18 POC Glucose 190 mg/dL (70-110) H 06/17/25 10:37 Estimat Average Glucose 214 06/15/25 05:27 Hemoglobin A1c 9.1 % (4.0-6.0) H 06/15/25 05:27 Calculated Osmolality 283 mOsm/kg (285-295) L 06/17/25 05:18 Lactic Acid 2.8 mmol/L (0.5-2.2) H 06/14/25 08:07 Lactic Acid (Sepsis) 1.4 mmol/L (0.5-2.2) 06/14/25 11:10 Calcium 8.2 mg/dL (8.5-10.5) L 06/17/25 05:18 Magnesium 2.3 mg/dL (1.7-2.3) 06/14/25 11:10 Total Bilirubin 0.7 mg/dL (0.15-1.2) 06/17/25 05:18 AST 30 U/L (0-40) 06/17/25 05:18 ALT 54 U/L (0-41) H 06/17/25 05:18 Alkaline Phosphatase 74 U/L (40-130) 06/17/25 05:18 Creatine Kinase 122 U/L (39-308) 06/15/25 05:27 Total Protein 6.0 g/dL (6.6-8.7) L 06/17/25 05:18 Albumin 2.7 g/dL (3.5-5.2) L 06/17/25 05:18 Globulin 3.3 g/dL (1.3-4.6) 06/17/25 05:18 Lipase 18 U/L (13-60) 06/14/25 08:07 TSH 0.73 uIU/mL (0.27-4.20) 06/14/25 12:20 Urine Color Yellow (Yellow) 06/14/25 07:55 Urine Appearance Clear (CLEAR) 06/14/25 07:55 Urine pH 5.5 (5-7) 06/14/25 07:55 Ur Specific Margaret 1.035 (1.005-1.030) H 06/14/25 07:55 Urine Protein 2+ (Negative) A 06/14/25 07:55 Urine Glucose (UA) 3+ (Normal) H 06/14/25 07:55 Urine Ketones 1+ (Negative) H 06/14/25 07:55 Urine Blood 3+ (Negative) A 06/14/25 07:55 Urine Nitrate Negative (Negative) 06/14/25 07:55 Urine Bilirubin Negative (Negative) 06/14/25 07:55 Urine Urobilinogen 0.2 mg/dL (Negative) 06/14/25 07:55 Ur Leukocyte Esterase Negative (Negative) 06/14/25 07:55 Urine RBC 0-2 /hpf (0-2) 06/14/25 07:55 Urine WBC 0-5 /hpf (0-5) 06/14/25 07:55 Ur Squamous Epith Cells 0-5 /hpf (0-5) 06/14/25 07:55 Amorphous Sediment Not Reportable 06/14/25 07:55 Urine Bacteria None seen /hpf (NONE) 06/14/25 07:55 Hyaline Casts 1.21 /lpf 06/14/25 07:55 Serum Ketones Positive (Negative) H 06/14/25 08:07 Vitals Last Vital Signs Temp 98.3 F 06/17/25 11:19 Pulse 76 06/17/25 11:19 Resp 17 06/17/25 11:19 BP 135/76 06/17/25 11:19 Pulse Ox 95 06/17/25 11:19 O2 Del Method Room Air 06/17/25 11:19 O2 Flow Rate 1 06/15/25 01:55 Discharge Plan Discharge Patient Disposition: Home Condition: Stable Prescriptions: New (DME) glucometer testing kit See Rx Instructions .Route .MEDSUPPLY Qty: 1 0RF Rx Instructions: inject subuct tid, after meals, based on low dose sliding scale lancets#100 strips#100 amoxicillin-pot clavulanate 875-125 mg tablet 1 tab PO BID 7 Days Qty: 14 0RF polyethylene glycol 3350 [Miralax] 17 gram powder in packet 17 g PO DAILY 10 Days Qty: 10 0RF insulin glargine [Lantus U-100 Insulin] 100 unit/mL Solution 10 unit SUBCUT Q24H 30 Days Qty: 10 0RF insulin lispro [Humalog U-100 Insulin] 100 unit/mL Solution See Rx Instructions .ROUTE .COMPLEX Qty: 10 0RF Rx Instructions: inject subcut, three times daily after meals, based on low dose insuling scale aspirin 81 mg tablet 81 mg PO DAILY 30 Days Qty: 30 0RF Continued metformin 500 mg tablet 1,000 mg PO BID 90 Days Qty: 360 3RF bismuth subsalicylate [Pepto-Bismol] 262 mg/15 mL Suspension 524 mg PO QID PRN (Reason: upset stomach ) Discontinued ibuprofen [Advil] 200 mg Tablet 400 mg PO Q6H PRN (Reason: Fever Or Pain) No Action (DME) blood-glucose meter Kit See Rx Instructions .ROUTE .MEDSUPPLY Qty: 1 5RF Rx Instructions: Daily (DME) custom molded accomadative orthotics with a toe filler to the left See Rx Instructions .Route .MEDSUPPLY Qty: 1 0RF Rx Instructions: As directed (DME) CAROLEE lynne See Rx Instructions .Route .MEDSUPPLY Qty: 1 0RF Rx Instructions: As directed Other Ambulatory Orders: MCT/Event Monitor 30 Days (Routine) Timeframe: 1 Day Facility: [facility] - Location: Radiology Ordered By: Deandre Morales Referrals: Harpreet Kam MD [Physician, General Surgery] - 07/02/25 8:55 am Referral Note: 2 weeks ALLI Son, JOE [Primary Care Provider, Family Practice] Discharge Diet: Cardiac Discharge Activity: Resume usual activity Patient Instructions: Acute Wound Care (DC), Abdominal Pain (ED), Opioid Safety, Post Anesthesia Care, Patient Portal & Shabana Instructions Activity Restrictions/Additional Instructions: General Surgery instructions: Please do not lift anything heavier than 10 pounds, for the next 4 to 6 weeks. You can walk is much as possible, this will help you recover faster. You can shower starting the day after tomorrow, let soap and water run over your wound and then pat dry. Please take your medication as indicated if you are taking opioids please do not forget to take a stool softener Warning signs: Return to the hospital if you have fever, chills, severe abdominal pain that is getting worse over time despite your pain medication or if your eyes or skin are turning yellow - Please take aspirin 81 mg daily - Please monitor blood sugars closely - Please monitor blood pressures twice daily and record them and a blood pressure log follow-up with primary care - Wear event monitor as prescribed - Follow-up with cardiology --Please monitor your blood sugars closely -Monitor your blood sugars 3 times daily as after meals -Please record your blood sugars, and a blood sugar log -For your Humalog -Please inject blood sugar after meals based on sliding scale provided -Do not inject insulin if you do not eat as hypoglycemia kills -This is a HUmalog sliding scale -Insulin sliding ?fingerstick? Insulin ?141-180?0 units/sq 181-220?2 units/sq ?221-260?4 units/sq ?261-300 6 units/sq ?301-350?8 units/sq ?351-400 10 units/sq ?401-450?12 units/sq >450? 14units/sq -If your blood sugar is greater than 500 go to the emergency room -If your blood sugar is less than 60 or at anytime you feel lightheaded or dizzy or diaphoretic or have chest palpitations check your blood sugar, and eat a hard candy or drink orange juice and go immediately to the emergency room -Remember hypoglycemia kills, so if his blood sugar is less than 60 we have to increase it by taking in a sugary meal such as a hard candy or orange juice and go to the emergency room -If you have any questions please call us where here to help Discharge Attestations Time Spent in Discharge Care*: greater than 30 min Quality Metrics Clinical Quality Measures [ No reported AMI, CVA or VTE this stay] Coding Level of Care Code 88908 Total time (in minutes) for Discharge: 45 Diagnoses Acute cholecystitis K81.0 DKA (diabetic ketoacidosis) E11.10
[2025-06-17 13:25] VITALS: BP 135/76; PULSE 76; O2SAT 95
== END 2025-06-17 13:26 | disposition home or self-care (01) | DRG 417 ==
LOC: ER 10:39 → ER IP 16:18 → MEDSURG 17:21
PROVIDERS: Surgery; Admitting Provider Internal Medicine; Emergency Provider Family Medicine; PCP Nurse Practitioner Family; Visit Provider Family Medicine
PROC: 0FT44ZZ Resection of Gallbladder, Percutaneous Endoscopic Approach (ICD-10-PCS; CPT 47562; principal; 2025-06-14 15:15)
DX: K81.0 Acute cholecystitis (principal); E11.10 Type 2 diabetes mellitus with ketoacidosis without coma; K65.0 Generalized (acute) peritonitis; M62.82 Rhabdomyolysis; F17.220 Nicotine dependence, chewing tobacco, uncomplicated; E78.2 Mixed hyperlipidemia; R09.02 Hypoxemia; Z79.84 Long term (current) use of oral hypoglycemic drugs
CPT/HCPCS: 36415; 36416; 36600; 71045; 74177; 76705; 80048; 80051; 80053; 81001; 82009; 82330; 82550; 82805; 82962; 83036; 83605; 83690; 83735; 84443; 85025; 87040; 87070; 87075; 87077; 87186; 87205; 88304; 93005; 96365; 96372; 96375; 99285; A4216; C1052; C8929; J0131; J1100; J1171; J1650; J1815; J1885; J2405; J2543; J2704; J3010; J3490; J7030; J9999